=== PATIENT | female | born 1955 | race African-American/Black ===

== ENCOUNTER 2022-09-14 15:07 | Emergency (ER) | payer OTHER, SELFPAY ==
[2022-09-14] VITALS (9 sets, daily range): BP systolic 125–174; BP diastolic 62–90; PULSE 60–81; RESP 15–35; TEMP 36.2; O2SAT 94–97
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
[2022-09-14 15:44] LABS: Basophils Absolute Auto 0.1 K/mm3 (0.0-0.1); Basophils Percent Auto 1.1 % (0.2-1.2); Eosinophils Absolute Auto 0.1 K/mm3 (0-0.3); Eosinophils Percent Auto 2.5 % (0-4.4); Hematocrit 38.4 % (37.0-47.0); Hemoglobin 12.4 g/dL (12.0-15.0); Immature Granulocyte Absolute 0.03 K/mm3 (0.00-0.031); Immature Granulocyte Percent A 0.5 % (0-0.5); Lymphocytes Absolute Auto 2.44 K/mm3 (0.9-3.2); Lymphocytes Percent Auto 44.2 % (18.3-44.2); Mean Corpuscular HGB Conc 32.3 g/dl (32-36); Mean Corpuscular Hemoglobin 27.7 pg (26-34); Mean Corpuscular Volume 85.7 fl (80-100); Mean Platelet Volume 10.4 fl (7.4-10.4); Monocytes Absolute Auto 0.3 K/mm3 (0.1-0.6); Neutrophils Absolute Auto 2.5 K/mm3 (1.3-6.7); Neutrophils Percent Auto 45.7 % (45.5-73.1); Platelet Count Result 250 k/mm3 (150-375); Red Blood Count 4.48 M/mm3 (4.2-5.4); Red Cell Distribution Width 14.8 % (11.5-14.5); White Blood Count 5.5 K/mm3 (4.5-10.0)
[2022-09-14 15:57] LABS: Anion Gap 6 mmol/L (8-16); Blood Urea Nitrogen 23 mg/dL (7-17); Calcium 9.2 mg/dL (8.4-10.2); Carbon Dioxide 27 mmol/L (22-30); Chloride 104 mmol/L (98-107); Estimated CRCL calculation 50 ml/min; Estimated Glomerular Filt Rate > 60; Glucose 115 mg/dL (65-110); Potassium 4.3 mmol/L (3.4-5.0); Sodium 137 mmol/L (137-145)
== END 2022-09-14 17:59 | disposition home or self-care (01) ==
PROVIDERS: Emergency Provider Physician Assistant
DX: R07.89 Other chest pain (principal); S49.91XA Unspecified injury of right shoulder and upper arm, initial encounter; S69.92XA Unspecified injury of left wrist, hand and finger(s), initial encounter; M85.842 Other specified disorders of bone density and structure, left hand; M19.042 Primary osteoarthritis, left hand; M19.011 Primary osteoarthritis, right shoulder; V49.40XA Driver injured in collision with unspecified motor vehicles in traffic accident, initial encounter
CPT/HCPCS: 36415; 71260; 73030; 73140; 80048; 85025; 99284; Q9967

== ENCOUNTER 2024-12-05 00:17 | Inpatient (IN) | payer MEDICARE, SELFPAY ==
[2024-12-05] VITALS (21 sets, daily range): BP systolic 106–145; BP diastolic 53–70; PULSE 67–93; RESP 12–26; TEMP 36.2–38.1; O2SAT 92–98; BMI 26.2
--- NOTE | ~2024-12-05 | CT_ITS ---
History: Mental status changes PROCEDURE: CT head without contrast. COMPARISON: None TECHNIQUE: Axial imaging of the head performed from the skull base to the vertex without IV contrast. Sagittal a nd coronal reformations obtained. DLP: 1740 mGy-cm FINDINGS: The ventricles are enlarged. The dilatation of the ventricles is proportional to the degree of sulcal prominence, not uncommon in the senescent brain. Decreased attenuation is identified within the periventricular white matter, likely secondary to micr ovascular ischemic disease, in a patient of this age. There is no mass, mass effect or midline shift. There is no abnormal extra-axial fluid collection or intracranial hemorrhage. Visualized paranasal sinuses are clear. The mastoid air cells are well aerated. No acute displaced fractures within the overlying cranium. Impression: No acute intracranial hemorrhage or suspicious mass effect. Reviewed, dictated and finalized at location A. Impression: No acute intracranial hemorrhage or suspicious mass effect.
--- NOTE | ~2024-12-05 | US_ITS ---
US venous doppler [facility] - 12/06/2024 14:08 CDT History: 69 years old Female with bilateral lower extremity pain and swelling. Real-time sonographic images of the bilateral lower extremity venous system were obtained. Color Dop pler sonography and spectral waveform analysis were performed. No prior studies for comparison. The bilateral sapheno-femoral junctions are patent. The bilateral common femoral, superficial femor al, popliteal and posterior tibial veins are compressible and without evidence of echogenic thrombus . Impression: No evidence of deep venous thrombosis Reviewed, dictated and finalized at location A. Impression: No evidence of deep venous thrombosis
--- NOTE | ~2024-12-05 | XR_ITS ---
CHEST RADIOGRAPH CLINICAL HISTORY: fever, sob . COMPARISON: None TECHNIQUE: Single portable view of the chest. FINDINGS The cardiomediastinal silhouette is unremarkable. Platelike atelectasis within the right mid to lower lung field. The remainder of the lungs are clear. IMPRESSION: Platelike atelectasis within the right mid to lower lung field, without focal infiltrate or effusion. Reviewed, dictated and finalized at location A. IMPRESSION: Platelike atelectasis within the right mid to lower lung field, without focal i nfiltrate or effusion.
--- OUTSIDE RECORDS SUMMARY | 2024-12-05 00:19 | XMS_ITS | Clinical Summary ---
Author Organization [facility] Address [address] [place] [address] Care Team Providers Care Geographic Information Systems Engineer Name Role Phone Mike Yepez MD Unavailable Nikita Bailey MD Unavailable Elias Harris MD Unavailable Hema Whaley MD Unavailable [phone] Walter York MD Primary Care Provider Walter York MD Unavailable [phone] Anne Sharma MD Unavailable Justo Ferrer MD Unavailable Ansley Luciano OD Unavailable [phone] Source Comments [facility],non-owned Affiliates and Associated Physician Practices is amultiple site organization consisting of ambulatory clinics and hospital sitesin [place], [place], [place] and [place]. This disclosure is being madepursuant to the Care Everywhere program and may not contain all information available regarding this patient. Last updated 18.[facility] Allergies Active Allergy Reactions Criticality Noted Date Comments Bupropion Hcl Urticaria Medium 06/28/2008 Duloxetine Nausea and/or Vomiting,Dizziness Low Fatigue Venlafaxine Nausea and/or Vomiting Medium 06/15/2012 Medications * Be aware that medications may not be up to date on this document. Alwaysverify current medications with the patient. MULTIVITAMIN PO Take 1 Tab by mouth once daily. Active fluticasone propionate (FLONASE) 50 MCG/ACT nasal spray [place] 1 [place] into each nostril as needed. 1 Inhaler 11 04/26/20 13 Active Cholecalciferol (VITAMIN D) 50 MCG (1999 UT) capsule Take 1 capsule by mouth once daily 30 capsule 09/06/19 20 Active Blood Glucose Calibration (FREESTYLE CONTROL SOLUTION) LIQD 1 Each by In Vitro route as directed Prn 1 Each 08/22/19 22 Active blood glucose (FREESTYLE LITE STRIPS) test strip Testing once daily Type 2 DM E11.65 Insulin Depend. 100 strip 01/10/20 22 Active Magnesium 500 MG Take 500 mg by mouth every Friday, Friday & Friday08/29/19 23 Active Additional Information Patient taking differently:500 mg OralDAILY PRN, as needed for leg crampsTaking PRN, Indications: leg cramps, Reported on 11/11/2024 carvedilol (Coreg) 12.5 MG tablet Take 1 (one) tablet by mouth 2 times daily with morning and evening meal 180 tablet 4 11/10/19 24 Active Insulin Pen Needle (BD Pen Needle Nikole U/F) 32G X 4 MM MISCIndications: Diabetes mellitus type 2, insulin dependent (HCC) Use 1 Each once daily 100 Each 1 12/11/19 24 Active romosozumab-aqqg (Evenity) injection Inject 2.34 mL subcutaneously every 28 days Active gabapentin (Neurontin) 100 MG capsule TAKE 1 CAPSULE BY MOUTH TWICE DAILY 180 capsule 4 03/29/20 24 Active hydroCHLOROthiaz chai (Microzide) 12.5 MG capsuleIndicatio ns:Essential hypertension with goal blood pressure less than 130/80 Take 1 (one) capsule by mouth once daily 90 capsule 4 04/05/20 24 Active atorvastatin (Lipitor) 40 MG tabletIndication s:Atherosclerosi s of aorta,Essential hypertension with goal blood pressure less than 130/80 TAKE 1 TABLET BY MOUTH EVERY DAY 90 tablet 3 06/25/19 25 Active lisinopril (Prinivil; Zestril) 40 MG tabletIndication s:Essential hypertension with goal blood pressure less than 130/80 TAKE 1 TABLET BY MOUTH DAILY. HOLD IF BLOOD PRESSURE<110 90 tablet 3 08/21/19 25 Active amLODIPine (Norvasc) 5 MG tabletIndication s:Essential hypertension with goal blood pressure less than 130/80 TAKE 1 TABLET BY MOUTH TWICE DAILY 180 tablet 3 09/14/19 25 Active amitriptyline (Elavil) 25 MG tabletIndication s:Insomnia, unspecified type TAKE 1 TABLET BY MOUTH AT BEDTIME 90 tablet 3 10/02/19 25 Active albuterol HFA (Proventil; Ventolin; Proair) 108 (90 Base) MCG/ACT inhaler Inhale 2 (two) puffs by mouth every 4 hours as needed 7 g 5 10/05/19 25 Active umeclidinium-db anterol (Anoro Ellipta) 62.5-25 MCG/ACT inhalerIndicatio ns:Chronic Obstructive Pulmonary Disease Inhale 1 Puff by mouth once daily Reasons: Chronic Obstructive Lung Disease 3.214 Each 11 10/05/19 25 Active insulin glargine (Lantus/Semglee) 100 units/mL pen Inject 15 (fifteen) Units subcutaneously at bedtime for 90 days 10/06/19 25 025 Active Farxiga 10 MG tablet TAKE 1 TABLET BY MOUTH EVERY MORNING 90 tablet 10/19/19 25 Active dulaglutide (Trulicity) 3 MG/0.5ML injectionIndicat ions:Type 2 diabetes, controlled, with neuropathy (HCC) Inject 3 (three) mg subcutaneously every 7 days (once a week) 2 mL 2 11/12/19 25 Active dulaglutide (Trulicity) 1.5 MG/0.5ML injectionIndicat ions:Diabetes mellitus type 2, insulin dependent (HCC) ADMINISTER 1.5 MG UNDER THE SKIN EVERY 7 DAYS 2 mL 2 09/07/19 25 025 Discontin ued(Dose Adjustmen t) Active Problems Patient Care Coordination No te Formatting of this note is d ifferent from the original. [employer] H[employer]ER [address] [place] [address] (home) [phone] (work) [email or web address] Do they have MY CHART: Yes [facility] Extended Emergency Contact Information Name: Aruna Houser Address: DAUGHTER Relation: Daughter Name: Alrfedo Saini Relation: Nephew Name: Eleni Singh Relation: Sister MY CARE TEAM Primary Care Physician: Dr. Goins Automobile Wrecker: Elisa Montelongo RN MEDICATIONS Current Outpatient Prescriptions Medication gabapentin (NEURONTIN) 300 MG capsule traMADol (ULTRAM) 50 MG tablet insulin glargine (LANTUS) injection zolpidem (AMBIEN) 5 MG tablet aspirin 81 MG chew tablet blood glucose (ONETOUCH ULTRA TEST STRIPS) test strip glimepiride (AMARYL) 4 MG tablet pioglitazone (ACTOS) 45 MG tablet metFORMIN (GLUCOPHAGE) 1000 MG tablet vitamin D, ergocalciferol, (DRISDOL) 67796 UNIT capsule lisinopril-hydrochlorothiazide (PRINZIDE; ZESTORETIC) 20-12.5 MG tablet pravastatin (PRAVACHOL) 40 MG tablet metoprolol succinate XL 24hr (TOPROL XL) 25 MG tablet insulin syringe-needle (BD ULTRAFINE) 29G X 1/2 1 ML syringe fluticasone propionate (FLONASE) 50 MCG/ACT nasal spray MULTIVITAMIN PO PROVIGIL 200 MG TABS CURRENT HEALTH ISSUES Patient Active Problem List Diagnosis DM w/o Complication Type II Unspecified Essential Hypertension Sleep Apnea Screening for Eye Condition March 16, 2012 - No evidence of diabetic retinopathy - Yusef Enciso MD see scanned report DJD (degenerative joint disease), lumbar Hyperlipidemia Foot drop, right Depression Mitral valve prolapse Hepatitis B carrier Urinary retention Insulin-requiring or dependent type 2 diabetes mellitus Thoracic or lumbosacral neuritis or radiculitis, unspecified Fears and concerns about my health: No The changes I am ready to make: Take medications as prescribed Problem #1: Medication Compliance Prior state: Non-compliant Current State: Compliant Prior goal: Compliant Current goal: Compliant Problem #2: Pain Prior state: Constant pain in left low back, hip, and leg Current State: Pain is tolerable, able to sleep at night Prior goal: No pain Current goal: Managing pain Accomplishments: Receiving care from pain management PLAN The steps I will take to achieve my goal are: 1. Take Lantus every night 2. Complete follow up tests for back/leg pain 3. Start Cymbalta 30 mg daily 4. Call therapist and schedule appointment The things that will make it hard for me to reach my goal are: 1. Me The way I can overcome those things that get in the way: 1. Make it a priority How important my goal is for me: 7-8 (0=not important, 10=very important): My confidence level that I can reach my goal: 10 (10 represents feeling MOST confident): I should call my Automobile Wrecker with any questions, concerns, new problems, failures, or achievements. Also call if you need assistance navigating through the healthcare system or communicating between physicians. Automobile Wrecker name: Elisa Montelongo RNcognos phone: [phone] Automobile Wrecker email: Messages may be sent through MY CHART Problem Noted Date Diagnosed Date Right leg pain 09/08/2024 Pathological fracture of rig ht hip due to osteoporosis with routine healing 09/24/2023 Coronary artery disease 04/28/2023 Scant Diabetic Background Retinopathy 11/21/2021 Overview (11/21/2021): Yusef Enciso MD 11/05/21 Atherosclerosis of aorta 08/18/2019 Overview (08/18/2019): Ct chest 06/16/17 Palpitations 07/19/2019 Other chest pain 09/14/2018 COPD, severe 03/31/2017 Overview (08/18/2019): Elias Harris MD 07/05/19 Pulmonary nodules 03/31/2017 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 Wilson, DANNIE Type II diabetes mellitus with nephropathy 01/17 Overview (11/21/2021): Walter York MD 09/18/21 Type 2 diabetes, controlled, with neuropathy Overview (08/18/2019): Chi Goins MD 05/31/19 BMI 29.0-29.9,adult 04/26/2013 Foot drop, left 09/30/2012 Vitamin D deficiency 09/30/2012 Overview (03/02/2015): Thoracic or lumbosacral neur itis or radiculitis, unspecified 12/09/2011 Diabetes mellitus type 2, insulin dependent 05/03 Overview (11/21/2021): Anne Sharma MD 11/21/21 Foot drop, right 04/12/2011 Depression 04/12/2011 Mitral valve prolapse 04/12/2011 Hepatitis B carrier 04/12/2011 DJD (degenerative joint disease), lumbar 010 Screening for Eye Condition March 15, 2013 - No evidence of diabetic retinopathy - Yusef Enciso MD see scanned report 08/21/2009 Overview (03/25/2013): Dr Enciso, Jun 2009 Dr Enciso, Mar 2012 Dr Enciso, Mar 2013 Sleep apnea 08/15/2008 Overview (09/06/2019): Positional when in supine position. Does not use CPAP. Resolved Problems Problem Noted Date Diagnosed Date Resolved Date Fall, initial encounter 09/02/2023 0410/2023 Closed displaced intertrocha nteric fracture of right femur, initial encounter 09/02/20232023 Diabetes mellitus with insulin therapy 03/07/2016 11/21/2021 Overview (11/21/2021): DUPLICATE Right sided sciatica 04/30/2010 011 Ulnar neuropathy 12/25/2009 04/12/2011 Arteritis--cartoid 08/15/2008 1 Fibrocystic disease of breast 08/15/2008 04/12/2011 Pericarditis-1997 08/15/2008 04/12/2011 Gall bladder disease 08/15/2008 011 Lipoma 08/15/2008 04/12/2011 Carpal Tunnel Syndrome--left 08/15/2008 04/12/2011 Diverticulosis 08/15/2008 04/12/2011 Encounters Date Type Department Care Team Description 11/11/2024 10:40 AM CDT Office Visit [facility] - Endocrinology [address], [address] [place] [phone] Lupillo Garcia, RENAL DIALYSIS RN-HOSPITALITY MANAGER Type 2 diabetes, controlled, with neuropathy (HCC) (Primary Dx); Essential hypertension with goal blood pressure less than 130/80; Dyslipidemia; Osteoporosis with current pathological fracture, unspecified osteoporosis type, sequela 11/11/2024 Travel 10/29/2024 10:50 AM CDT Clinical Support [facility] Orthopedics [address] [facility] [address] [place] [address] Osteoarthritis of spine with radiculopathy, lumbar region 10/17/2024 Results Follow-Up [facility] Internal Medicine [address] [place] [address] [place] [address] Laura Mckeon APRN-JEVON 10/16/2024 Refill [facility] Endocrinology [address] [place] [address], [address] [place] [phone] Anne Sharma MD Refill Request 10/05/2024 1:20 PM CDT Office Visit [facility] Internal Medicine [address] [place] [address] [place] [address] Laura Mckeon, RENAL DIALYSIS RN-HOSPITALITY MANAGER Routine physical examination (Primary Dx); Essential hypertension with goal blood pressure less than 130/80; Atherosclerosis of aorta; Coronary artery disease involving [place] coronary artery of [place] heart without angina pectoris; COPD, severe (HCC); Tobacco use disorder, continuous; Diabetic retinopathy, background (HCC); Age-related osteoporosis without current pathological fracture; Hepatitis B carrier (HCC); Vitamin D deficiency; Mild episode of recurrent major depressive disorder; Iron deficiency anemia, unspecified iron deficiency anemia type; Neuropathy; Lumbar radiculopathy; 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); Diabetes mellitus type 2, insulin dependent (HCC); Thyroid disorder screen; Hammer toes of both feet; Medicare annual wellness visit, subsequent 10/05/2024 Travel 10/04/2024 11:40 AM CDT Office Visit [facility] - Pulmonology [address] [place] [address], [address] [place] [address] Elias Harris MD COPD, severe (HCC) (Primary Dx); Tobacco use disorder; Multiple lung nodules on CT 10/01/2024 Refill [facility] Internal Medicine [address] [facility] [place] [address] Walter York MD Refill Request 09/20/2024 11:00 AM CDT Clinical Support [facility] Orthopedics [id number] [place] [address], [address] [place] [phone] Osteoarthritis of spine with radiculopathy, lumbar region 09/12/2024 Refill [facility] Heart & Vascular Care [address] [place] [address] Hema Whaley MD Refill Request 09/08/2024 9:25 AM CDT Ancillary Procedure [facility] Orthopedic - Radiology [address] [place] [phone] Wale Flores, RENAL DIALYSIS RN-HOSPITALITY MANAGER Right leg pain 09/08/2024 9:20 AM CDT Office Visit [facility] [address] [place] [address] [address] [place] [address] Wale Flores, RENAL DIALYSIS RN-HOSPITALITY MANAGER Osteoarthritis of spine with radiculopathy, lumbar region (Primary Dx); Right leg pain 09/05/2024 Refill [facility] - Endocrinology [facility], [facility] [address] [place] [address] Anne Sharma MD Refill Request from Last 3 Months Immunizations Immunization Administration Dates Next Due COVID PFIZER 12+YR 30MCG/0.3mL 03/08/2024,2023,03/17/2023 COVID PFIZER BIVALENT 12Y+ 30mcg/0.3ML 03/18/2022 Comirnaty Covd-19 Mrna Vacci ne (Nucleoside Modified) 03/08/2024 Covid Pfizer primary Monoval ent 12+ yr 0.3ml 09/18/2021 Covid Pfizer primary monoval ent 12+ yr 0.3mL Purple cap 03/17/2023,05/01/2021,06/22/2020,2019 FLU VACCINE TRI IIV3 SPLIT P F IM (FLUVIRIN) 02/18/2011 HEP A VACCINE, ADULT 10/06/2001,07/01/2001 INFLUENZA VACCINE 03/08/2024, 3,03/02/2021,2019,03/03/2019,03/04/2018,02/25/2017,0 02/27/2016,02/28/2015,03/16/2014, 013,03/02/2012,04/21/2009,02/22/2009 INFLUENZA VACCINE, ADJUVANTE D, QUADR. (FLUAD QUADRIVALENT; 65Y+) (AIIV4) 03/18/2022 INFLUENZA VACCINE, HIGH-DOSE , TRIV. (FLUZONE HIGH-DOSE TRIVALENT; 65Y+) (HD-IIV3) 03/08/2024 PNEUMOCOCCAL PPSV23 01/20/2020,09/19/1998 Pneumococcal Pcv13 Conj 10/27/2014 RSV ABRYSVO PREG OR 60y+ 0.5mL 03/03/2023 RSV AREXVY 60YR+ 0.5ML 03/03/2023 TD VACCINE 09/19/2000 TDAP (7yrs+) 01/20/2020,12/25/2009 ZOSTER VACCINE, LIVE 01/25/2015 Zoster Hzv Vacc Recombinant Inj Im 09/08,07/13/2018,03/05/2018,2017 Family History Medical History Relation Name Comments CAD (Coronary Artery Disease) Brother Hypertension Brother Other - Hepatic/Liver Brother Hep B CAD (Coronary Artery Disease) Father CVA Maternal Grandfather CAD (Coronary Artery Disease) Maternal Grandmother Diabetes Mother Diabetes - Type 2 Mother Hypertension Mother Renal Disease Mother on HD, r/t [facility] Cancer - Breast Other half sister Colon Cancer after age 50 or unknown Paternal Grandmother Cancer - Colon Paternal Uncle Hypertension Sister Relation Name Status Comments Brother Alive Father (Age 59) [place] Maternal Grandfather Maternal Grandmother Mother (Age 64) dialysis, hypertension, diabetes Other half sister Alive Paternal Grandmother Paternal Uncle Sister Alive Social History Tobacco Use Types Packs/Day Years Used Date Smoking Tobacco: Every Day Cigarettes 0.5 44 Smokeless Tobacco: Never Comments:average 1 ppd since age 19, down to 1-2 cigarettes daily Alcohol Use Standard Drinks/Week Comments Not Currently 0 (1 standard drink = 0.6 oz pur e alcohol) 0-2 month OASIS D0700: Social Isolation Answer Da te Recorded Frequency of experiencing loneliness or isolatio n Never 09/25/2023 OASIS A1250: Transportation Answer Date Recorded Lack of Transportation (Medical) No 09/25/2023 Lack of Transportation (Non-Medical) No 09/25/2023 Patient Unable or Declines to Respond No 09/25/2023 OASIS B1300: Health Literacy Answer Chi e Recorded Frequency of needing help to read materials from doctor or pharmacy Never 09/25/2023 AUDIT-C Answer Date Recorded Q1: How often do you have a drink containing alc ohol? Monthly or less 09/02/2023 Q2: How many drinks containi ng alcohol do you have on a typical day when you are drinking? 1 or 2 09/02/2023 Q3: How often do you have si x or more drinks on one occasion? Never 09/02/2023 Overall Financial Resource Strain (CARDIA) Answe r Date Recorded How hard is it for you to pa y for the very basics like food, housing, medical care, and heating? Not hard at all 09/03/2023 PHQ-2 Answer Date Recorded Patient Health Questionnaire-2 Score 0 09/30/2024 [facility] Occupat ional [facility] - Occupational Stress Questionnaire Answer Date Recorded Do you feel stress - tense, restless, nervous, or anxious, or unable to sleep at night because your mind is troubled all the time - these days? Not at all 09/03/2023 Hunger Vital Sign Answer Date Recorded Within the past 12 months, y ou worried that your food would run out before you got the money to buy more. Never true 09/03/19 24 Within the past 12 months, t he food you bought just didn't last and you didn't have money to get more. Never true 09/03/2023 PRAPARE - Transportation Answer Date Re corded In the past 12 months, has l ack of transportation kept you from medical appointments or from getting medications? No 08/2023 In the past 12 months, has l ack of transportation kept you from meetings, work, or from getting things needed for daily living? No 09/03/2023 Housing Stability Vital Sign Answer Chi e Recorded In the last 12 months, was t here a time when you were not able to pay the mortgage or rent on time? No 09/03/2023 In the last 12 months, how many places have you lived? 1 09/03/2023 In the last 12 months, was t here a time when you did not have a steady place to sleep or slept in a group home (including now)? No 09/03/2023 Education Answer Date Recorded What is the highest level of school you have completed or the highest degree you have received? 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 Not on file Not on file Last Filed Vital Signs Vital Sign Reading Time Taken Comments Blood Pressure 130/60 11/11/2024 10:48 AM CDT Pulse 69 10/05/2024 1:26 PM CDT Temperature 36.1 C (96.9 F) 10/05/2024 1:26 PM CDT Respiratory Rate 16 09/25/2023 12:30 PM CDT Oxygen Saturation 97% 10/05/2024 1:26 PM CDT Inhaled Oxygen Concentration - - Weight 72.8 kg (160 lb 9.6 oz) 11/11/2024 10:48 AM CDT Height 165.1 cm (5' 5) 10/05/2024 1:26 PM CDT Body Mass Index 26.73 10/05/2024 1:26 PM CDT Plan of Treatment Upcoming Encounters Date Type Department Care Team (Late st Contact Info) Description 12/07/2024 11:00 AM CDT Clinical Support [facility] Orthopedics [address] [place] [address], [address] [phone] 02/03/2025 10:30 AM CDT Office Visit [facility] Heart & Vascular Care [address] [place] [address] [address] [place] [address] Hema Whaley MD [address] [place] [address] [address] [place] [address] 02/08/2025 12:40 PM CDT Office Visit [facility] Medical [facility] - Endocrinology [address], [address] [place] [phone] Lupillo Garcia RENAL DIALYSIS RN-HOSPITALITY MANAGER [address], [address] [place] [phone] 04/06/2025 9:20 AM IRIDOLOGIST Office Visit [facility] - Internal Medicine [address] [facility] [place] [address] Laura Mckeon, RENAL DIALYSIS RN-HOSPITALITY MANAGER [address] [facility] [facility] [place] [place] [phone] 04/06/2025 1:40 PM IRIDOLOGIST Office Visit [facility] - Pulmonology [address] [facility], [address] [place] [address] Elias Harris MD [address] [facility] [address] [place] [address] 04/22/2025 11:00 AM IRIDOLOGIST Office Visit [facility] - Ophthalmology [address] [facility] [facility], [place] [phone] David Palumbo, OD [facility] [place] [phone] Health Maintenance Due Date Last Done Comments COLOGUARD (AGES 45-75) - COLON CA SCREENING 1955 CT COLONOGRAPHY - COLON CA SCREENING 1955 FIT - COLON CA SCREENING 1955 FLEX SIG - COLON CA SCREENING 1955 HEPATITIS B VACCINE (1 of 3 - Risk 3-dose series) 2015 COVID-19 VACCINE ( season) 2024 03/08/2024, 03/08/2024, 09/24/2023, Additional history exists INFLUENZA VACCINE (#1) 2025 , 03/08/2024, 02/20/2023, Additional history exists LUNG CANCER SCREENING 02/08/2025 02/09/2024 , 02/05/2023, 01/30/2022, Additional history exists MAMMOGRAM 03/19/2025 03/19/2023, 03/02, 03/02/2021, Additional history exists DIABETES RETINOPATHY SCREENING 04/16/2025 04/16/2024, 04/16/2024, 04/15/2023, Additional history exists DIABETES-HGB A1C 05/13/2025 11/11/2024, 05/2025, 05/13/2024, Additional history exists DIABETES - URINE PROTEIN SCREENING 10/14/2025 10/14/2024, 09/24/2023, 01/21/2023, Additional history exists DIABETES-SERUM CREATININE 10/14/20252024, 09/24/2023, 09/04/2023, Additional history exists DIABETES-FOOT EXAM WITH MONOFILAMENT 11/11/2025 11/11/2024, 01/20/2020, 05/31/2019, Additional history exists COLONOSCOPY - COLON CA SCREENING 08/01/2027 07/31/2022, 07/31/2022, 07/31/2022, Additional history exists Colorectal Cancer Screening 08/01/2027 DTAP/TDAP/TD VACCINES (4 - Td or Tdap) 01/19/2030 01/20/2020, 12/25/2009, 09/19/2000 COLON MONITORING 07/31/2032 07/31/2022, 06/2022, 07/31/2022, Additional history exists HEPATITIS C SCREENING Completed 09/30/2012 ZOSTER VACCINE Completed 09/08/2018, 07/03, 03/05/2018, Additional history exists PNEUMOCOCCAL VACCINE 50+ Completed 020, 10/27/2014, 09/19/1998 Respiratory Syncytial Virus (RSV) Vaccine Pt: or over 60 yrs Completed 03/03/2023, 03/03/2023 BONE DENSITY TESTING Completed 10/07/2023, 11/13/2016, 10/22/2007 DEPRESSION SCREENING Completed 10/04/2024, 09/09/2023, 09/02/2023, Additional history exists MEDICARE AWV CALENDAR YEAR Completed 10/05/2024, 09/24/2023, 02/27/2023, Additional history exists HIB VACCINE Aged Out No longer eligi ble based on patient's age to complete this topic HPV VACCINE Aged Out No longer eligi ble based on patient's age to complete this topic MENINGOCOCCAL (Group B) VACCINE SHARED DECISION-MAKING Aged Out No longer eligible based on patient's age to complete this topic MENINGOCOCCAL GROUPS A/C/Y/W VACCINE Aged Out No longer eligible based on patient's age to complete this topic Goals Goal Patient Goal Type Associated Problems Recent Progress Patient-Stated? Author Blood Pressure < 140/90 Blood Pressure 130/60(2024 10:48 AM CDT) No Rachna Amador RN Right level of care at the right time. General Yes Vikki Chacon RN Note: Boots will call the doctor if she has an increased temperature (greater than 101), unrelieved pain, symptoms that are not relieved or worsening, and side effects of medications. Progress toward goal attainment: 0% : Ongoing / No progress Barriers to goal attainment: No barriers identified at time of encounter. Increase vegetable intake to 2 servings daily Lifestyle BMI 29.0-29.9,adult Not on track( 015 9:29 AM CDT) No Rachna Amador RN Quit smoking / using tobacco Lifestyle Not on track( 016 10:16 AM CDT) No Rachna Amador RN [facility] [facility] Lifestyle: Have labs drawn Lifestyle On track( 015 9:29 AM CDT) Chrissy Vázquez HEMOGLOBIN A1C < 8 Result Component 6.6( 4 3:41 AM CDT) No Rachna Amador RN Medical Devices Implanted Type Area Seed Laboratory Technician Device Identifier Shelf Expiration Date Model / Serial / Lot Cochlear Baha [id number] Abdutment 14mm Implanted:Qty: 1 on 10/22/2018 by Nikita Bailey MD at [facility] Right: Ear 11/08/2020 [id number] / / [id number] Lens Iol +28 Rosalie Autonome Formerly [facility] - [id number] Implanted:Qty: 1 on 08/06/2022 by Albert Mckenna MD at [facility] Right: Eye [employer] 10/06/2024 [id number] / [id number] / 0000 Acry Sopf Iq Toric Implanted:Qty: 1 on 08/27/2022 by Albert Mckenna MD at [facility] Left: Eye [employer] 08/31/2023 [id number] / [id number] Gamma Trochanteric Nail 170mm 11 X 170mm X 125 Degree Implanted:Qty: 1 on 09/03/2023 by Mehdi Forte MD at [facility] Right: Femur [employer] 06/01/2033 [id number] / / [id number] Screw 10.5mm 90mm Lag Gma Strl Bone Lf Implanted:Qty: 1 on 09/03/2023 by Mehdi Forte MD at [facility] Right: Femur [employer] 05/01/2033 [id number] / / [id number] Screw 5mm 35mm Lck T2 Alpha Strl Bone Implanted:Qty: 1 on 09/03/2023 by Mehdi Forte MD at [facility] Right: Femur [employer] 07/02/2033 [id number] / / [id number] Procedures Procedure Name Priority Date/Time Associated Diagnosis Comments HEMOGLOBIN A1C - POINT OF CARE (AMB) Routine 11/11/2024 10:55 AM CDT Type 2 diabetes, controlled, with neuropathy (HCC) GLUCOSE - POINT OF CARE (AMB) STL Routine 11/11/2024 10:54 AM CDT Type 2 diabetes, controlled, with neuropathy (HCC) VITAMIN D 25-HYDROXY Routine 10/14/2024 11:14 AM CDT Vitamin D deficiency IRON + TIBC PANEL Routine 10/14/2024 11: 13 AM CDT Iron deficiency anemia, unspecified iron deficiency anemia type TSH HI LOW REFLEX FREE T4 Routine 10/14/2024 11:13 AM CDT Routine physical examination Thyroid disorder screen LIPID PROFILE Routine 10/14/2024 11:13 AM CDT Routine physical examination Atherosclerosis of aorta Coronary artery disease involving [place] coronary artery of [place] heart without angina pectoris CBC W AUTO DIFFERENTIAL Routine 10/14/2024 11:13 AM CDT Routine physical examination COMPREHENSIVE METABOLIC PANEL Routine 10/14/2024 11:13 AM CDT Routine physical examination Essential hypertension with goal blood pressure less than 130/80 Hepatitis B carrier (HCC) MICROALB/CREAT RATIO URINE RANDOM PANEL Routine 10/14/2024 11:13 AM CDT Routine physical examination Lumbar radiculopathy 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) Diabetes mellitus type 2, insulin dependent (HCC) XR HIP RIGHT 2VW OR MORE Routine 09/08/2024 9:19 AM CDT Right leg pain CT LUNG SCREEN LOW DOSE Routine 02/09/2024 11:10 AM CDT Tobacco use disorder Multiple lung nodules on CT DEXA BONE DENSITY AXIAL SKELETON Routine 10/07/2023 1:01 PM CDT Pathological fracture of right hip due to other osteoporosis with routine healing, subsequent encounter MAMMO BILAT SCREENING W VICK Routine 03/19/2023 10:23 AM CDT Encounter for screening mammogram for malignant neoplasm of breast ENDOSCOPY, COLON, SCREENING Routine 07/31/2022 8:47 AM IRIDOLOGIST Screen for colon cancer EYE EXAM 03/18/2022 HEPATITIS C ANTIBODY Routine 09/30/2012 9:13 AM CDT Need for hepatitis C screening test from Last 3 Months or Most Recently Relevant to Health Maintenance Results * HEMOGLOBIN A1C - POINT OF CARE (AMB) (11/11/2024 10:55 AM CDT) Hemoglobin A1c POCT 6.5 % [facility] Expiration Date [id number] [facility] Lot # [id number] [facility] QC Verified Yes Yes [facility] Blood BLOOD SPECIMEN / Unknown 11/11/2024 10:55 AM CDT [email or web address] Pittsjefferson RENAL DIALYSIS RN-HOSPITALITY MANAGER LAB - POINT OF C ARE ORDERABLES Final Result [facility] [address] [place] [address], [facility] [phone] * (ABNORMAL) GLUCOSE - POINT OF CARE (AMB) ST (11/11/2024 10:54 AM CDT) Glucose 102(A) 60 - 100 mg/dL [facility] Lot # [id number] [facility] Expiration Date [id number] [facility] QC Verified Yes Yes [facility] Blood BLOOD SPECIMEN / Unknown 11/11/2024 10:54 AM CDT Gabinoaz Shameka Radha RENAL DIALYSIS RN-HOSPITALITY MANAGER LAB - POINT OF C ARE ORDERABLES Final Result [facility] [address] [place] [address], [facility] [phone] * VITAMIN D 25-HYDROXY (10/14/2024 11:14 AM CDT) Vitamin D, 25 Hydroxy 42.3 30.0 - 100.0 ng/mL [facility] INSURANCE BILL Comment: Vitamin D deficiency has been defined by the [place] of [employer] and an Endocrine Society practice guideline as a level of serum 25-OH vitamin D less than 20 ng/mL (1,2). The Endocrine Society went on to further define vitamin D insufficiency as a level between 21 and 29 ng/mL (2). 1. IOM ([place] of Medicine). 2010. Dietary reference intakes for calcium and D. [place]: The National Academies Press. 2. Armando MF, Julius NOWAK, Zeb TORRES, et al. Evaluation, treatment, and prevention of vitamin D deficiency: an Endocrine Society clinical practice guideline. JCEM. 2010; 96(7):1911-30. Blood BLOOD SPECIMEN / Unknown 10/14/2024 11:14 AM CDT 10/14/2024 Narrative [facility] INSURANCE BILL - 10/15/2024 9:10 AM CDT Performed at: [address] [place] [address] [id number] Application Penetration Tester: Martin Sotelo PhD, Phone: [phone] Laura Mckeon APRUNIVERSITY OF [facility] LAB - CHEMISTRY ORDERAB LES Final Result Performing Organization Address [facility] Co de Phone Number [facility] INSURANCE BILL [address] [place] [address] * TSH HI LOW REFLEX FREE T4 (10/14/2024 11:13 AM CDT) [facility] TSH 0.676 0.450 - 4.500 uIU/mL [facility] INSURANCE BILL Blood BLOOD SPECIMEN / Unknown 10/14/2024 11:13 AM CDT 10/14/2024 Narrative [facility] INSURANCE BILL - 10/15/2024 10:10 AM CDT Performed at: [address] [place] [address] [id number] Application Penetration Tester: Martin Sotelo PhD, Phone: [phone] Laura Mckeon APRNSAINT ELIZABETH'[facility] LAB - CHEMISTRY ORDERAB LES Final Result Performing Organization Address [facility] Co de Phone Number [facility] INSURANCE BILL [address] [place] [address] * (ABNORMAL) MICROALB/CREAT RATIO URINE RANDOM PANEL (10/14/2024 11:13 AM CDT) Creatinine Urine 48.8 Not Estab. mg/dL [facility] INSURANCE BILL Microalbumin Urine 41.2 Not Estab. ug/mL [facility] INSURANCE BILL Microalbumin/Crea tinine Ratio 84(H) 0 - 29 mg/g creat [facility] INSURANCE BILL Comment: Normal: 0 - 29 Moderately increased: 30 - 300 Severely increased: >300 Urine URINE SPECIMEN OBTAINED BY CLEAN CATCH PROCEDURE / Unknown 10/14/2024 11:13 AM CDT 10/14/2024 Narrative [facility] INSURANCE BILL - 10/15/2024 1:10 PM CDT Performed at: 01 - [address] [id number] Application Penetration Tester: Martin Sotelo PhD, Phone: [phone] us Laura Mckeon RENAL DIALYSIS RN-HOSPITALITY MANAGER LAB - URINE CHEMISTRY O RDERABLES Final Result [facility] INSURANCE BILL [address] [place] [address] * CBC WITH DIFFERENTIAL (10/14/2024 11:13 AM CDT) WBC 4.9 3.4 - 10.8 x10E3/uL [facility] INSURANCE BILL RBC 4.48 3.77 - 5.28 x10E6/uL [facility] INSURANCE BILL Hemoglobin 12.4 11.1 - 15.9 g/dL [facility] INSURANCE BILL Hematocrit 38.6 34.0 - 46.6 % [facility] INSURANCE BILL MCV 86 79 - 97 fL [facility] INSURANCE BILL MCH 27.7 26.6 - 33.0 pg [facility] INSURANCE BILL MCHC 32.1 31.5 - 35.7 g/dL [facility] INSURANCE BILL RDW 13.5 11.7 - 15.4 % [facility] INSURANCE BILL Platelet Count 230 150 - 450 x10E3/uL [facility] INSURANCE BILL Granulocytes % 52 Not Estab. % [facility] INSURANCE BILL Lymphocytes % 36 Not Estab. % [facility] INSURANCE BILL Monocytes % 8 Not Estab. % [facility] INSURANCE BILL Eosinophils % 3 Not Estab. % [facility] INSURANCE BILL Basophils % 1 Not Estab. % [facility] INSURANCE BILL Granulocytes Absolute 2.6 1.4 - 7.0 x10E3/uL [facility] INSURANCE BILL Lymphocytes Absolute 1.7 0.7 - 3.1 x10E3/uL [facility] INSURANCE BILL Monocytes Absolute 0.4 0.1 - 0.9 x10E3/uL [facility] INSURANCE BILL Eosinophils Absolute 0.1 0.0 - 0.4 x10E3/uL [facility] INSURANCE BILL Basophils Absolute 0.0 0.0 - 0.2 x10E3/uL [facility] INSURANCE BILL Immature Granulocytes 0 Not Estab. % [facility] INSURANCE BILL Immature Granulocytes Absolute 0.0 0.0 - 0.1 x10E3/uL [facility] INSURANCE BILL Blood BLOOD SPECIMEN / Unknown 10/14/2024 11:13 AM CDT 10/14/2024 Narrative [facility] INSURANCE BILL - 10/15/2024 7:09 AM CDT Performed at: [address] [place] [address] [id number] Application Penetration Tester: Martin Sotelo PhD, Phone: [phone] us Laura Mckeon RENAL DIALYSIS RN-HOSPITALITY MANAGER LAB - HEMATOLOGY ORDERA BLES Final Result [facility] INSURANCE BILL [address] [place] [address] * (ABNORMAL) COMPREHENSIVE METABOLIC PANEL (10/14/2024 11:13 AM CDT) Glucose 125(H) 70 - 99 mg/dL [facility] INSURANCE BILL BUN 14 8 - 27 mg/dL [facility] INSURANCE BILL Creatinine 0.83 0.57 - 1.00 mg/dL [facility] INSURANCE BILL eGFR by CKD-EPI 76 >59 mL/min/1.7 3 [facility] INSURANCE BILL BUN/Creatinine Ratio 17 12 - 28 [facility] INSURANCE BILL Sodium 140 134 - 144 mmol/L [facility] INSURANCE BILL Potassium 4.9 3.5 - 5.2 mmol/L [facility] INSURANCE BILL Chloride 102 96 - 106 mmol/L [facility] INSURANCE BILL CO2 25 20 - 29 mmol/L [facility] INSURANCE BILL Calcium 9.9 8.7 - 10.3 mg/dL [facility] INSURANCE BILL Protein Total 7.2 6.0 - 8.5 g/dL [facility] INSURANCE BILL Albumin 4.3 3.9 - 4.9 g/dL [facility] INSURANCE BILL Globulin Total 2.9 1.5 - 4.5 g/dL [facility] INSURANCE BILL Bilirubin Total 0.4 0.0 - 1.2 mg/dL [facility] INSURANCE BILL Alkaline Phosphatase 177(H) 44 - 121 IU/L [facility] INSURANCE BILL AST 18 0 - 40 IU/L [facility] INSURANCE BILL ALT 13 0 - 32 IU/L [facility] INSURANCE BILL Blood BLOOD SPECIMEN / Unknown 10/14/2024 11:13 AM CDT 10/14/2024 Narrative [facility] INSURANCE BILL - 10/15/2024 9:10 AM CDT Performed at: [address] [id number] Application Penetration Tester: Martin Sotelo PhD, Phone: [phone] us Laura Mckeon APRN-HOSPITALITY MANAGER LAB - CHEMISTRY ORDERAB LES Final Result Performing Organization Address [facility] de Phone Number [facility] INSURANCE BILL [address] [place] [address] * IRON + TIBC PANEL (10/14/2024 11:13 AM CDT) [facility] TIBC 273 250 - 450 ug/dL [facility] INSURANCE BILL UIBC 210 118 - 369 ug/dL [facility] INSURANCE BILL Iron 63 27 - 139 ug/dL [facility] INSURANCE BILL Iron Saturation 23 15 - 55 % [facility] INSURANCE BILL Blood BLOOD SPECIMEN / Unknown 10/14/2024 11:13 AM CDT 10/14/2024 Narrative [facility] INSURANCE BILL - 10/15/2024 11:11 AM CDT Performed at: [address] [id number] Application Penetration Tester: Martin Sotelo PhD, Phone: [phone] us Laura Mckeon RENAL DIALYSIS RN-HOSPITALITY MANAGER LAB - CHEMISTRY ORDERAB LES Final Result Performing Organization Address [facility] de Phone Number [facility] INSURANCE BILL [address] [place] [address] * LIPID PROFILE (10/14/2024 11:13 AM CDT) Cholesterol 131 100 - 199 mg/dL [facility] INSURANCE BILL Triglycerides 71 0 - 149 mg/dL [facility] INSURANCE BILL HDL Cholesterol 55 >39 mg/dL [facility] INSURANCE BILL VLDL Calculated 14 5 - 40 mg/dL [facility] INSURANCE BILL LDL Calculated 62 0 - 99 mg/dL [facility] INSURANCE BILL Blood BLOOD SPECIMEN / Unknown 10/14/2024 11:13 AM CDT 10/14/2024 Narrative [facility] INSURANCE BILL - 10/15/2024 9:10 AM CDT Performed at: 01 - [address] [id number] Application Penetration Tester: Martin Sotelo PhD, Phone: [phone] us Laura Mckeon RENAL DIALYSIS RN-HOSPITALITY MANAGER LAB - CHEMISTRY ORDERAB LES Final Result [facility] INSURANCE BILL [address] [place] [address] * XR Hip Right 2Vw or More (09/08/2024 9:19 AM CDT) Anatomical Region Laterality Modality Pelvis, Lower Extremity Computed Radiography Narrative 09/08/2024 9:19 AM CDT Please see progress note in Epic for results. us Wale Flores RENAL DIALYSIS RN-HOSPITALITY MANAGER DIAGNOSTIC IMAGING ORDB[place] DIETZ Edited Result - Final * CT Lung Screen Low Dose (02/09/2024 11:10 AM CDT) Anatomical Region Laterality Modality Chest Computed Tomogra phy 02/09/2024 11:2 8 AM CDT Impressions 02/09/2024 11:44 AM CDT IMPRESSION: 1. No suspicious interval changes in the size or morphology of pulmonary nodules at discussed above. There are no new pulmonary nodules, lymphadenopathy or metastatic lesions. 2. Early centrilobular emphysema in the lung apices. 3. Heavy burden of atherosclerotic calcifications of coronary arteries and thoracic aorta as well as the imaged portion of the upper abdominal aorta. RECOMMENDATION: Low-dose CT lung screening in 12 months. LUNG RADS CATEGORY 2 : BENIGN CATEGORY 2: BENIGN APPEARANCE OR BEHAVIOR. Solid nodules less than 6 mm, new nodules less than 4 mm, partly solid nodules less than 6 mm and non-solid nodules less than 20 mm. Continued screening with LD CT in 12 months. ACR Lung-RADS Category/Recommendations: 0: Need prior comparisons or additional images 1: Negative: 12 month follow up LDCT (Low Dose CT) 2: Benign Appearin month follow up LDCT 3: Probably Benign: 6 month follow up LDCT 4A: Suspicious: 3 month follow up LDCT (or immediate PET if >7mm solid component) 4B: Suspicious: Immediate Chest CT or PET if >7mm solid component 4X: Cat 3 or 4A nodules with additional suspicious findings Modifier-S: Significant NON-lung cancer findings Modifier-C: Prior treated Lung Cancer. For details of the ACR Lung-RADS program, categories and recommendations: 1) https://www.acr.org/Quality-Safety/Resources/LungRADS 2) Internet search: Lung-RADS Lung Cancer Screening 3) Contact [facility] thoracic nurse coordinator ([phone]) > Interpreting Provider: Gilmar Welsh MD on 02/09/2024 11:44 AM Narrative 02/09/2024 11:44 AM CDT PROCEDURE: CT LUNG SCREEN LOW DOSE DATE/TIME OF EXAM: 02/09/2024 11:10 AM CLINICAL INFORMATION: None relevant/not provided if blank. Indication: F17.200: Nicotine dependence, unspecified, uncomplicated R91.8: Other nonspecific abnormal finding of lung field CT LUNG SCREENING. HISTORY: This is a lung cancer screening on a 69-year-old female with 22 pack year history of smoking half a pack to 1 pack of cigarettes for 44 years COMPARISON: CT lung cancer screening, 02/05/2023 and 08/31/2018 TECHNIQUE: Spiral axial scanning of the chest was performed without intravenous contrast administration utilizing 2.5 mm slice thickness images. CT dose reduction technique was used, including Automated Exposure Control. The radiation exposure as measured by the dose length product (DLP) is 76.58 mGy-cm. FINDINGS: The noncalcified nodule with groundglass attenuation in the superior segment of right lower lobe measuring 4 mm (series 4, image 44) is a stable from the 2022 examination, but is a slightly larger than 2019 when it measured 2.5 mm. The subpleural tiny nodule of the superior segment of right upper lobe adjacent to upper aspect of major fissure with groundglass attenuation measuring 3 mm and has not changed (series 4, image 32). Both of these nodules are best seen on the coronal image 83 in lung window setting. The juxtapleural nodular patchy opacity in the medial basal segment of right lower lobe (series 4, image 94) measuring 11 mm in length) is partially obscured by adjacent diaphragm, but is similar to the previous examination in 2019 (series 3, image 169 of the study in 2019). Given the interval, it is benign. The lung window images do not demonstrate new pulmonary nodules, masses, fibrotic changes, endobronchial lesions, bronchiectasis, bronchial wall thickening, endotracheal lesions or pneumothorax. Minimal centrilobular emphysematous changes of the lung apices are suspected. The lungs are otherwise clear. Heavy burden coronary artery calcifications involving the left main, proximal and distal left anterior descending, diagonal and septal branches, circumflex and right coronary artery is noted. The is heavy burden of atherosclerotic calcifications of the entire length of the thoracic aorta. The aorta is normal in size and course and there is no evidence of intramural hematoma in aorta. The heart is normal in size. There is no pericardial effusion or pleural effusion. The esophageal wall thickness is normal. There is evidence of gastroesophageal reflux of a small volume of air to distal esophagus. A small sliding hiatal hernia is suspected. There is no lymphadenopathy in the chest or the imaged upper abdomen. The imaged portion of the thyroid gland is normal for a low-dose nonenhanced study. The chest wall is unremarkable. The imaged portion of the upper abdomen is within normal limits for a low-dose nonenhanced study. The bone window images demonstrate partially imaged postoperative changes of anterior cervical discectomy and fusion of the cervical spine, exaggerated kyphosis of the thoracic spine and advanced multilevel degenerative disc disease of mid and lower thoracic spine as well as the lower cervical spine. Procedure Note Gilmar Welsh MD - 02/09/2024 PROCEDURE: CT LUNG SCREEN LOW DOSE DATE/TIME OF EXAM: 02/09/2024 11:10 AM CLINICAL INFORMATION: None relevant/not provided if blank. Indication: F17.200: Nicotine dependence, unspecified, uncomplicated R91.8: Other nonspecific abnormal finding of lung field CT LUNG SCREENING. HISTORY: This is a lung cancer screening on a 69-year-old female with 22 pack year history of smoking half a pack to 1 pack of cigarettes for 44 years COMPARISON: CT lung cancer screening, 02/05/2023 and 08/31/2018 TECHNIQUE: Spiral axial scanning of the chest was performed without intravenous contrast administration utilizing 2.5 mm slice thickness images. CT dose reduction technique was used, including AutomatedExposure Control. The radiation exposure as measured by the dose length product (DLP) is 76.58 mGy-cm. FINDINGS: The noncalcified nodule with groundglass attenuation in the superior segment of right lower lobe measuring 4 mm (series 4, image 44) is astable from the 2022 examination, but is a slightly larger than 2019 when it measured 2.5 mm. The subpleural tiny nodule of the superior segment of right upper lobe adjacent to upper aspect of major fissure withgroundglass attenuation measuring 3 mm and has not changed (series 4, image 32).Both of these nodules are best seen on the coronal image 83 in lung window setting. The juxtapleural nodular patchy opacity in the medial basal segment of right lower lobe (series 4, image 94) measuring 11 mm in length) is partially obscured by adjacent diaphragm, but is similar to the previous examination in 2019 (series 3, image 169 of the study in 2019). Giventhe interval, it is benign. The lung window images do not demonstrate new pulmonary nodules, masses, fibrotic changes, endobronchial lesions, bronchiectasis, bronchial wall thickening, endotracheal lesions or pneumothorax. Minimal centrilobular emphysematous changes of the lung apices are suspected. The lungs are otherwise clear. Heavy burden coronary artery calcifications involving the left main, proximal and distal left anterior descending, diagonal and septalbranches, circumflex and right coronary artery is noted. The is heavy burden of atherosclerotic calcifications of the entire length of the thoracicaorta. The aorta is normal in size and course and there is no evidence of intramural hematoma in aorta. The heart is normal in size. There is no pericardial effusion or pleural effusion. The esophageal wall thickness is normal. There is evidence of gastroesophageal reflux of a small volume of air to distal esophagus. A small sliding hiatal hernia is suspected. There is no lymphadenopathy in the chest or the imaged upper abdomen.The imaged portion of the thyroid gland is normal for a low-dose nonenhanced study. The chest wall is unremarkable. The imaged portion of the upper abdomen is within normal limits for a low-dose nonenhanced study. The bone window images demonstrate partially imaged postoperativechanges of anterior cervical discectomy and fusion of the cervical spine, exaggerated kyphosis of the thoracic spine and advanced multilevel degenerative disc disease of mid and lower thoracic spine as well as the lower cervical spine. IMPRESSION: 1. No suspicious interval changes in the size or morphology of pulmonary nodules at discussed above. There are no new pulmonary nodules, lymphadenopathy or metastatic lesions. 2. Early centrilobular emphysema in the lung apices. 3. Heavy burden of atherosclerotic calcifications of coronary arteriesand thoracic aorta as well as the imaged portion of the upper abdominalaorta. RECOMMENDATION: Low-dose CT lung screening in 12 months. LUNG RADS CATEGORY 2 : BENIGN CATEGORY 2: BENIGN APPEARANCE OR BEHAVIOR. Solid nodules less than 6 mm, new nodules less than 4 mm, partly solid nodules less than 6 mm and non-solid nodules less than 20 mm. Continued screening with LD CT in 12 months. ACR Lung-RADS Category/Recommendations: 0: Need prior comparisons or additional images 1: Negative: 12 month follow up LDCT (Low Dose CT) 2: Benign Appearin month follow up LDCT 3: Probably Benign: 6 month follow up LDCT 4A: Suspicious: 3 month follow up LDCT (or immediate PET if >7mm solid component) 4B: Suspicious: Immediate Chest CT or PET if >7mm solid component 4X: Cat 3 or 4A nodules with additional suspicious findings Modifier-S: Significant NON-lung cancer findings Modifier-C: Prior treated Lung Cancer. For details of the ACR Lung-RADS program, categories andrecommendations: 1) https://www.acr.org/Quality-Safety/Resources/LungRADS 2) Internet search: Lung-RADS Lung Cancer Screening 3) Contact [facility] thoracic nurse coordinator ([phone]) > Interpreting Provider: Gilmar Welsh MD on 02/09/2024 11:44 AM Phyllis Murphy RENAL DIALYSIS RN-HOSPITALITY MANAGER CT ORDERABLES Final R esult * DEXA BONE DENSITY AXIAL SKELETON (10/07/2023 1:01 PM CDT) Anatomical Region Laterality Modality Nuclear Medicine 10/07/2023 1:13 PM CDT Impressions 10/07/2023 1:13 PM CDT IMPRESSION: WHO category: Osteopenia WORLD HEALTH ORGANIZATION DEFINITIONS NORMAL= T-Score at or above -1.0 SD OSTEOPENIA = T-Score between -1 and -2.5 SD OSTEOPOROSIS = T-Score at or below -2.5 SD > Interpreting Provider: Alex Boo DO on 10/07/2023 1:13 PM Narrative 10/07/2023 1:13 PM CDT PROCEDURE: DEXA BONE DENSITY AXIAL SKELETON DATE/TIME OF EXAM: 10/07/2023 1:01 PM CLINICAL INFORMATION: None relevant/not provided if blank. Indication: M80.851D: Other osteoporosis with current pathological fracture, right femur, subsequent encounter for fracture with routine healing Additional History: Right hip hardware COMPARISON: None. INDICATION: 68 years-old for osteoporosis screening. FINDINGS: The mean bone mineral content of the lumbar spine is 1.399 g/cm2 and T-score is 1.8. The mean bone mineral content of the left femoral neck is 0.859 g/cm2 and T-score is -1.3. The mean bone mineral content of the left total hip is 0.738 g/cm2 and T-score is -2.1. FRAX 10 year fracture risk Major osteoporotic fracture: 6.9% Hip fracture: 0.8% Procedure Note Alex Boo DO - 10/07/2023 PROCEDURE: DEXA BONE DENSITY AXIAL SKELETON DATE/TIME OF EXAM: 10/07/2023 1:01 PM CLINICAL INFORMATION: None relevant/not provided if blank. Indication: M80.851D: Other osteoporosis with current pathological fracture, right femur, subsequent encounter for fracture with routine healing Additional History: Right hip hardware COMPARISON: None. INDICATION: 68 years-old for osteoporosis screening. FINDINGS: The mean bone mineral content of the lumbar spine is 1.399 g/cm2 and T-score is 1.8. The mean bone mineral content of the left femoral neck is 0.859 g/cm2and T-score is -1.3. The mean bone mineral content of the left total hip is 0.738 g/cm2 and T-score is -2.1. FRAX 10 year fracture risk Major osteoporotic fracture: 6.9% Hip fracture: 0.8% IMPRESSION: WHO category: Osteopenia WORLD HEALTH ORGANIZATION DEFINITIONS NORMAL= T-Score at or above -1.0 SD OSTEOPENIA = T-Score between -1 and -2.5 SD OSTEOPOROSIS = T-Score at or below -2.5 SD > Interpreting Provider: Alex Boo DO on 10/07/2023 1:13 PM Wale Flores RENAL DIALYSIS RN-HOSPITALITY MANAGER DEXA ORDERABLES Final R esult * MAMMO BILAT SCREENING W VICK (03/19/2023 10:23 AM CDT) Anatomical Region Laterality Modality Breast Bilateral Mammography 03/19/2023 11:3 1 AM CDT Impressions 03/19/2023 12:43 PM CDT : There is no mammographic evidence of malignancy. OVERALL FINAL ASSESSMENT: BI-RADS Category 1: Negative. Annual screening mammography is recommended. > Interpreting Provider: Darwin Valentin MD on 03/19/2023 12:43 PM Narrative 03/19/2023 12:43 PM CDT EXAMINATION: BILATERAL DIGITAL SCREENING MAMMOGRAM AND BILATERAL BREAST TOMOSYNTHESIS HISTORY: Screening. COMPARISON: Serial examinations dating back to (09/13/2017.. TECHNIQUE: BILATERAL digital breast tomosynthesis (DBT) and synthetic 2D digital mammogram images were obtained (bilateral craniocaudal and mediolateral oblique projections) including computer aided detection (CAD.) BREAST PARENCHYMAL COMPOSITION:Category D: The breasts are extremely dense which lowers the sensitivity of mammography. MAMMOGRAM FINDINGS: There are no new suspicious masses, calcifications, or areas of architectural distortion in either breast, and there has been no significant interval change. Walter York MD MAMMO ORDERABLES Final Result * ENDOSCOPY, COLON, SCREENING (07/31/2022 8:47 AM IRIDOLOGIST) Report Endoscopy POC _ Patient Name: Prosper Houesr Procedure Date: 07/31/2022 8:47 AM Date of : 1955 Admit Type: Outpatient Age: 67 Gender: Female Ethnicity: Not or Race: Black or Attending MD: Mike Yepez MD _ Procedure: Colonoscopy Indications: Screening for colorectal malignant neoplasm Providers: Mike Yepez MD (Doctor), Rafa Haney RN, Pattie Vidal RN, Sofie Stacy, Stain Maker Referring MD: Walter York MD (Referring MD) Medicines: Monitored Anesthesia Care Complications: No immediate complications. _ Estimated Blood Loss: Estimated blood loss: none. Procedure: Pre-Anesthesia Assessment: - Prior to the procedure, a History and Physical was performed, and patient medications and allergies were reviewed. The patient's tolerance of previous anesthesia was also reviewed. The risks and benefits of the procedure and the sedation options and risks were discussed with the patient. All questions were answered, and informed consent was obtained. Prior Anticoagulants: The patient has taken no previous anticoagulant or antiplatelet agents. ASA Grade Assessment: II - A patient with mild systemic disease. After reviewing the risks and benefits, the patient was deemed in satisfactory condition to undergo the procedure. After I obtained informed consent, the scope was passed under direct vision. Throughout the procedure, the patient's blood pressure, pulse, and oxygen saturations were monitored continuously. The Colonoscope was introduced through the anus and advanced to the cecum, identified by appendiceal orifice and ileocecal valve. The colonoscopy was performed without difficulty. The patient tolerated the procedure well. The quality of the bowel preparation was fair. The ileocecal valve, appendiceal orifice, and rectum were photographed. Impression: - Preparation of the colon was fair. - Diverticulosis. - One 3 mm polyp in the transverse colon, removed with a jumbo cold forceps. Resected and retrieved. Findings: Diverticula were found in the colon. A 3 mm polyp was found in the transverse colon. The polyp was sessile. The polyp was removed with a jumbo cold forceps. Resection and retrieval were complete. Estimated blood loss: none. _ Recommendation: - Written discharge instructions were provided to the patient. - The signs and symptoms of potential delayed complications were discussed with the patient. - Patient has a contact number available for emergencies. - Return to normal activities tomorrow. - Resume previous diet. - Continue present medications. - Await pathology results. - Repeat colonoscopy in 3 - 5 years for surveillance based on pathology results. Procedure Code(s): --- Professional --- 66040, Colonoscopy, flexible; with biopsy, single or multiple --- Technical --- 85675, Colonoscopy, flexible; with biopsy, single or multiple Diagnosis Code(s): --- Professional --- Z12.11, Encounter for screening for malignant neoplasm of colon K63.5, Polyp of colon K57.30, Diverticulosis of large intestine without perforation or abscess without bleeding --- Technical --- Z12.11, Encounter for screening for malignant neoplasm of colon K63.5, Polyp of colon K57.30, Diverticulosis of large intestine without perforation or abscess without bleeding CPT copyright 2019 [employer]. All rights reserved. The codes documented in this report are preliminary and upon band and cuff cutter review may be revised to meet current compliance requirements. Mike Yepez MD 07/31/2022 9:47:36 AM This report has been signed electronically. Number of Addenda: 0 Note Initiated On: 07/31/2022 8:47 AM [facility] ENDOSCOPY 07/31/2022 8:47 AM IRIDOLOGIST us Mike Yepez MD GI PROCEDURE ORDERABLES Edited R esult - Final [facility] ENDOSCOPY * EYE EXAM (03/18/2022) Anatomical Region Laterality Modality Other Narrative 03/18/2022 Ordered by an unspecified provider. us Scanned Document SCANNING ONLY Final Result * HEPATITIS C ANTIBODY (09/30/2012 9:13 AM CDT) Hepatitis C Antibody <0.1 s/co ratio [facility] ACCOUNT BILL Comment: Negative: < 0.8 Indeterminate 0.8 - 0.9 Positive: > 0.9 . In order to reduce the incidence of a false positive result, the CDC recommends that all s/co ratios between 1.0 and 10.9 be confirmed by a more specific supplemental or PCR testing. [facility] offers [facility] Ab w/Reflex to Verification test #[id number]. Blood specimen (specimen) BLOOD SPECIMEN / Unknown 09/30/2012 9:13 AM CDT 09/30/2012 2:01 PM CDT Narrative Resulting Agency Comment [facility] [address] 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 Adv Directive/Living Will/POA 02/18/2017 11:41 PM Advance Directives and Living Will 12/07/2015 12:00 AM Adv Directive/Living Will/POA 01/25/2015 10:57 AM POA for health Care - graham * Full Code (Latest Code Status on File) Date Activated Date Inactivated Comments 09/02/2023 8:54 PM 09/05/2023 5:24 PM * Full Code Date Activated Date Inactivated Comments 10/21/2018 8:35 PM 10/22/2018 11:35 AM * FULL RESUSCITATION Date Activated Date Inactivated Comments 04/11/2011 3:49 PM 04/13/2011 5:02 AM Care Teams Geographic Information Systems Engineer Relationship Specialty Start Date End Date Walter York MD [address] [place] [phone] PCP - General Family Medicine 09/18/21 Walter York MD [address] [place] [phone] PCP - [facility] 06/02/24 Mike Yepez MD 6400 [facility] 216 [place] [address] Gastroenterology 01/12/10 Nikita Bailey MD [facility]5 [place] [address] Otolaryngology 07/06/15 Elias Harris MD 1035 [facility] 500 [place] [address] Pulmonary Disease 03/18/17 Hema Whaley MD 1027 [facility] 200 [place] [address] Cardiology 12/10/18 Anne Sharma MD [facility]5 [facility] 206 [place] [phone] Endocrinology 10/03/24 Justo Ferrer MD [address] [place] [phone] Orthopedic Surgery 10/03/24 Ansley Luciano OD [address] [place] [address] [place] [phone] Youth Corrections Officer Youth Corrections Officer 10/03/24
--- OUTSIDE RECORDS SUMMARY | 2024-12-05 00:20 | XMS_ITS | Encounter Summary ---
Author Organization [facility] Address [address] [place] [address] Care Team Providers Care Medical Engineer Name Role Phone Chi Goins MD Primary Care Provider [phone] Mike Yepez MD Unavailable Daniella Davis MD Unavailable Unav ailable Rachna Amador RN Unavailable [phone] Yusef Enciso MD Unavailable Unavailable Charlotte Torres RN Unavailable [phone] Paula Montelongo RN Unavailable [phone] Nikita Bailey MD Unavailable [phone] Chi Goins MD Unavailable [phone] Elias Harris MD Unavailable [phone] Mike Ge MD Unavailable [phone] Omar Painter MD Unavailable [phone] Hema Whaley MD Unavailable [phone] Chi Goins MD Unavailable [phone] Walter York MD Primary Care Provider [phone] Walter York MD Primary Care Provider [phone] Walter York MD Unavailable [phone] Walter York MD Unavailable [phone] Gina Stacy RN Unavailable Bridget Dorinda CRITICAL CARE NURSE Unavailable Vanita Gutierrez M Unavailable [phone] Mike Gutierrezrussel Valiente Unavailable [phone] Walter York MD Unavailable Anne Sharma MD Unavailable Justo Ferrer MD Unavailable Mustapha Ansley M OD Unavailable [phone] Encounter Details Date Type Department Care Team (Late Contact Info) Description 04/24/2011 [facility] Outpatient Visit EXTERNAL NON-[facility] DEPT Unknown, Provider Social History Tobacco Use Types Packs/Day Years Used Date Smoking Tobacco: Every Day Cigarettes 1 34 Smokeless Tobacco: Never Alcohol Use Standard Drinks/Week Comments No 0 (1 standard drink = 0.6 oz pur e alcohol) Comments No Sex and Gender Information Value Date Recorded Sex Assigned at Not on file Legal Sex Female 6:39 AM BRAKE COUPLER DINKEY Gender Identity Female 07/31/2022 8:08 AM BRAKE COUPLER DINKEY Sexual Orientation Not on file 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 encounter Plan of Treatment Upcoming Encounters Date Type Department Care Team (Late Contact Info) Description 12/07/2024 11:00 AM CDT Clinical Support [facility] Orthopedics [address] [place] [phone] 02/03/2025 10:30 AM CDT Office Visit [facility] Heart & Vascular Care [facility] [address] [place] [address] Hema Whaley MD [address] [place] [address] [address] [place] [address] 02/08/2025 12:40 PM CDT Office Visit [facility] Medical Group - Endocrinology [address] [address], [facility] 206 [place] [address] Lupillo Garcia, REHAB TRAINER-SAP MOBILITY ARCHITECT [address] [facility], [address] [place] [address] 04/06/2025 9:20 AM BRAKE COUPLER DINKEY Office Visit [facility] Medical [facility] - Internal Medicine [address] [facility] [place] [address] Laura Mckeon, REHAB TRAINER-SAP MOBILITY ARCHITECT [address] [facility] [place] [phone] 04/06/2025 1:40 PM BRAKE COUPLER DINKEY Office Visit [facility] - Pulmonology [address] [facility], [address] [place] [address] Elias Harris MD 1035 [facility] [address] [place] [address] 04/22/2025 11:00 AM BRAKE COUPLER DINKEY Office Visit [facility] Physician Group - Ophthalmology [address] [facility], [place] [phone] David Palumbo OD [address] [place] [phone] documented as of this encounter Visit Diagnoses Not on filedocumented in this encounter Care Teams Medical Engineer Relationship Specialty Start Date End Date Chi Goins MD PCP - General 09/19/08 04/30/20 Chi Goins MD [address] [place] [address] PCP - Attributed-[facility] 11/15/16 06/01/19 Chi Goins MD [address] [place] [address] PCP - Attributed-[facility] STL 12/01/19 11/18/22 Walter York MD [address] [place] [address] PCP - General Family Medicine 05/01/20 09/17/21 Walter York MD [address] [place] [address] PCP - General Family Medicine 09/18/21 Walter York MD [address] [place] [address] PCP - Attributed-[facility] [place] 06/02/21 09/17/22 Walter York MD [address] [place] [address] PCP - Attributed-[facility] [place] 07/31/22 03/19/24 Walter York MD [address] [place] [address] PCP - Attributed-[facility] [place] 06/02/24 Mike Yepez MD [address] [place] [phone] Gastroenterology 01/12/10 Daniella Davis MD 01/12/10 10/04/24 Rachna Amador, RN [address] [place] [address] Regional Director Of Admissions 06/22/12 12/14/14 Yusef Enciso MD [address] [place] [address] Ophthalmology 08/10/12 10/02/24 Charlotte Torres, WINSOME 1101 [facility] 300 [place] [phone] Regional Director Of AdmissionsMetal Forger'S Assistant 12/15/14 02/26/15 Paula Montelongo, WINSOME 1011 [facility] 300 [place] [address] Regional Director Of AdmissionsMetal Forger'S Assistant 02/27/15 06/25/15 Nikita Bailey MD [facility]5 [place] [address] Otolaryngology 07/06/15 Elias Harris MD 1035 [facility] 500 [place] [address] Pulmonary Disease 03/18/17 Mike Ge MD [address] [place] [address] 425 [place] [address] General Surgery 03/31/17 07/18/19 Omar Painter MD [address] [place] [address] 425 [place] [address] Orthopedic Surgery 12/10/18 10/02/24 Hema Whaley MD 1027 [facility] 200 [place] [address] Cardiology 12/10/18 Gina Stacy RN Regional Director Of AdmissionsMetal Forger'S Assistant 05/09/23 06/17/23 Dorinda Gill MSW Outpatient Technical Services Rep Care Management 09/08/23 09/25/23 Vanita Gutierrez Care Coordination Specialist Care Management 10/03/23 10/03/23 Vanita Gutierrez Care Coordination Specialist Care Management 04/07/24 04/07/24 Anne Sharma MD [address] [phone] Endocrinology 10/03/24 Justo Ferrer MD [address] [place] [address] Orthopedic Surgery 10/03/24 Ansley Luciano, MARCO A [address] [facility] DEPT [place] [phone] Service Line Layer Service Line Layer 10/03/24 documented as of this encounter
--- OUTSIDE RECORDS SUMMARY | 2024-12-05 00:20 | XMS_ITS | Encounter Summary ---
Author Organization [facility] Address [address] [facility] [place] [address] Care Team Providers Care Erp Manager Name Role Phone Chi Goins MD Primary Care Provider [phone] Mike Yepez MD Unavailable Daniella Davis MD Unavailable Unav ailable Rachna Amador RN Unavailable [phone] Yusef Enciso MD Unavailable Unavailable Charlotte Torres RN Unavailable [phone] Paula Montelongo RN Unavailable [phone] Nikita Bailey MD Unavailable [phone] Chi Goins MD Unavailable [phone] Elias Harris MD Unavailable [phone] Mike Ge MD Unavailable [phone] Omar Painter MD Unavailable [phone] Hema Whaley MD Unavailable [phone] Chi Goins MD Unavailable [phone] Walter York MD Primary Care Provider [phone] Walter York MD Primary Care Provider [phone] Walter York MD Unavailable [phone] Walter York MD Unavailable [phone] Gina Stacy RN Unavailable Dorinda Gill MOBILE ARCHITECT Unavailable [phone] GutierrezMikeVanita M Unavailable [phone] Vanita Gutierrez Unavailable [phone] Walter York MD Unavailable [phone] Anne Sharma MD Unavailable Justo Ferrer MD Unavailable Ansley Luciano OD Unavailable [phone] Encounter Details Date Type Department Care Team (Late Contact Info) Description 05/01/2011 [facility] Outpatient Visit 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 encounter Plan of Treatment Upcoming Encounters Date Type Department Care Team (Late Contact Info) Description 12/07/2024 11:00 AM CDT Clinical Support [facility] Orthopedics [address] [facility], [address] [address] 02/03/2025 10:30 AM CDT Office Visit [facility] Heart & Vascular Care [address] [place] [address] [address] [place] [address] Hema Whaley MD [address] [place] [address] 200 [place], [place] [phone] 02/08/2025 12:40 PM CDT Office Visit [facility] Medical Group - Endocrinology [address] [place] [address], [address] [place] [phone] uLpillo Garcia [employer]-DIAMOND SIZER AND GRADER [address] [facility], [address] [place] [address] 04/06/2025 9:20 AM ENGLISH ADJUNCT FACULTY Office Visit [facility] Medical [facility] - Internal Medicine [address] [facility] [place] [place] [address] Laura Mckeon, [employer] MED[employer]-DIAMOND SIZER AND GRADER [address] [facility] [place] [address] 04/06/2025 1:40 PM ENGLISH ADJUNCT FACULTY Office Visit [facility] - Pulmonology [address] [facility], [address] [place] [address] Elias Harris MD [address] [facility] [address] [place] [address] 04/22/2025 11:00 AM ENGLISH ADJUNCT FACULTY Office Visit [facility] - Ophthalmology [address] [facility], [place] [address] David Palumbo OD [address] [place] [phone] documented as of this encounter Visit Diagnoses Not on filedocumented in this encounter Care Teams Erp Manager Relationship Specialty Start Date End Date Chi Goins MD PCP - General 09/19/08 04/30/20 Chi Goins MD [address] [place] [address] PCP - Attributed-[facility] 11/15/16 06/01/19 Chi Goins MD [address] [place] [address] PCP - Attributed-[facility] STL 12/01/19 11/18/22 Walter York MD [address] [place] [address] PCP - General Family Medicine 05/01/20 09/17/21 Walter York MD [address] [place] [address] PCP - General Family Medicine 09/18/21 Walter York MD [address] [place] [address] PCP - Attributed-[facility] [place] 06/02/21 09/17/22 Walter York MD [address] [place] [address] PCP - Attributed-[facility] [place] 07/31/22 03/19/24 Walter York MD [address] [place] [address] PCP - Attributed-[employer] [place] 06/02/24 Mike Yepez MD [address] [place] [address] 216 [place] [address] Gastroenterology 01/12/10 Daniella Davis MD 01/12/10 10/04/24 Rachna Amador, RN [address] [place] [address] Real Estate Sales Associate 06/22/12 12/14/14 Yusef Enciso MD [address] [place] [address] Ophthalmology 08/10/12 10/02/24 Charlotte Torres, WINSOME 1101 [facility] [address] [place] [phone] Real Estate Sales AssociateSoftware Engineer Web Applications 12/15/14 02/26/15 Paula Montelongo, WINSOME 1011 [facility] [address] [place] [address] Real Estate Sales AssociateSoftware Engineer Web Applications 02/27/15 06/25/15 Nikita Bailey MD [facility]5 [place] [address] Otolaryngology 07/06/15 Elias Harris MD [address] [facility] [address] [place] [address] Pulmonary Disease 03/18/17 Mike Ge MD [address] [place] [address] 425 [place] [address] General Surgery 03/31/17 07/18/19 Omar Painter MD [address] [place] [address] 425 [place] [address] Orthopedic Surgery 12/10/18 10/02/24 Hema Whaley MD 1027 [facility] 200 [place] [address] Cardiology 12/10/18 Gina Stacy RN Real Estate Sales AssociateSoftware Engineer Web Applications 05/09/23 06/17/23 Dorinda Gill MSW Outpatient Seed Production Field Supervisor Care Management 09/08/23 09/25/23 Vanita Gutierrez Care Coordination Specialist Care Management 10/03/23 10/03/23 Vanita Gutierrez Care Coordination Specialist Care Management 04/07/24 04/07/24 Anne Sharma MD [address] [address] Endocrinology 10/03/24 Justo Ferrer MD [address] [place] [address] Orthopedic Surgery 10/03/24 Ansley Luciano, MARCO A [address] [facility] [place] [phone] Information Systems Analyst Information Systems Analyst 10/03/24 documented as of this encounter
--- OUTSIDE RECORDS SUMMARY | 2024-12-05 00:20 | XMS_ITS | Encounter Summary ---
Author Organization [facility] Address [address] [place] [address] Care Team Providers Care Ux Design Manager Name Role Phone Chi Goins MD Primary Care Provider [phone] Mike Yepez MD Unavailable Daniella Davis MD Unavailable Unav ailable Yusef Enciso MD Unavailable Unavailable Nikita Bailey MD Unavailable +[phone] Chi Goins MD Unavailable +[phone] Elias Harris MD Unavailable +[phone] Mike Ge MD Unavailable +[phone] Omar Painter MD Unavailable +[phone] Hema Whaley MD Unavailable +[phone] Chi Goins MD Unavailable +[phone] Waletr York MD Primary Care Provider +[phone] Walter York MD Primary Care Provider +[phone] Walter York MD Unavailable [phone] Walter York MD Unavailable [phone] Gina Stacy RN Unavailable Dorinda Gill FOREST MANAGEMENT PROFESSOR Unavailable +[phone] Vanita Gutierrez Unavailable +[phone] Vanita Gutierrez Unavailable +[phone] Walter York MD Unavailable [phone] Anne Shrama MD Unavailable Justo Ferrer MD Unavailable Ansley Luciano OD Unavailable [phone] Encounter Details Date Type Department Care Team (Late Contact Info) Description 10/11/2015 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 Health Medical [facility] - Endocrinology [address] [place] [address], [address] [place] [address] Lupillo Garcia, GEOGRAPHIC INFORMATION SYSTEMS DIRECTOR-BALLOON SANDER [address] [place] [address], [address] [place] [address] 04/06/2025 9:20 AM CORD MAKER Office Visit [facility] Medical [facility] - Internal Medicine [address] [facility] [place] [address] Narajulio césar Laura Damian, GEOGRAPHIC INFORMATION SYSTEMS DIRECTOR-BALLOON SANDER [address] [facility] [place] [address] 04/06/2025 1:40 PM CORD MAKER Office Visit [facility] - Pulmonology [address] [facility] [address] [place] [address] Elias Harris MD 1035 [facility] [address] [place] [address] 04/22/2025 11:00 AM CORD MAKER Office Visit [facility]ician Group - Ophthalmology 1225 [place] [phone] David Palumbo, MARCO A 1225 [place] [address] documented as of this encounter Goals Goal Patient Goal Type Associated Problems Recent Progress Patient-Stated? Author Blood Pressure < 140/90 Blood Pressure 130/60(2024 10:48 AM CDT) No Rachna Amador, WINSOME Increase vegetable intake to 2 servings daily Lifestyle BMI 29.0-29.9,adult Not on track( 9:29 AM CDT) No Rachna Amador, WINSOME Quit smoking / using tobacco Lifestyle Not on track( 10:16 AM CDT) No Rachna Amador, RN [facility] Lifestyle: Have labs drawn Lifestyle On track( 9:29 AM CDT) Chrissy Vázquez HEMOGLOBIN A1C < 8 Result Component 6.6( 4 3:41 AM CDT) No Rachna Amador, WINSOME documented as of this encounter Visit Diagnoses Not on filedocumented in this encounter Care Teams Ux Design Manager Relationship Specialty Start Date End Date Chi Goins MD PCP - General 09/19/08 04/30/20 Chi Goins MD [address] [place] [address] PCP - Attributed-Exclusive Choice 11/15/16 06/01/19 Chi Goins MD [address] [place] [address] PCP - Attributed-[facility] EHP STL 12/01/19 11/18/22 Walter York MD [address] [place] [address] PCP - General Family Medicine 05/01/20 09/17/21 Walter York MD [address] [place] [address] PCP - General Family Medicine 09/18/21 Walter York MD [address] [place] [address] PCP - Attributed-[facility] [place] 06/02/21 09/17/22 Walter York MD [address] [place] [address] PCP - Attributed-[facility] [place] 07/31/22 03/19/24 Walter York MD [address] [place] [address] PCP - Attributed-[facility] 06/02/24 Mike Yepez MD [address] [place] [address] 216 [place] [address] Gastroenterology 01/12/10 Daniella Davis MD 01/12/10 10/04/24 Yusef Encsio MD Ophthalmology 08/10/12 10/02/24 Nikita Bailey MD [address] [place] [address] Otolaryngology 07/06/15 Elias Harris MD [address] [place] [address] 500 [place] [address] Pulmonary Disease 03/18/17 Mike Ge MD [address] [place] [address] 425 [place], [place] [phone] General Surgery 03/31/17 07/18/19 Omar Painter MD [address] [place] [address] 425 [place], [place] [address] Orthopedic Surgery 12/10/18 10/02/24 Hema Whaley MD [address] [place] [address] 200 [place] [address] Cardiology 12/10/18 Gina Stacy, RN Wildlife Policy ProfessionalProduction Sampler 05/09/23 06/17/23 Dorinda Gill MSW Outpatient Grain Processor Care Management 09/08/23 09/25/23 Vanita Gutierrez Care Coordination Specialist Care Management 10/03/23 10/03/23 Vanita Gutierrez Care Coordination Specialist Care Management 04/07/24 04/07/24 Anne Sharma MD [address] [address] Endocrinology 10/03/24 Justo Ferrer MD 1120 [place] [address] Orthopedic Surgery 10/03/24 Asnley Luciano OD [address] [facility] [place] [address] Crown Assembly Machine Set Up Mechanic Crown Assembly Machine Set Up Mechanic 10/03/24 documented as of this encounter
--- OUTSIDE RECORDS SUMMARY | 2024-12-05 00:20 | XMS_ITS | Encounter Summary ---
Author Organization [facility] Address [address] [place] [address] Care Team Providers Care Correctional Cook Name Role Phone Chi Goins MD Primary Care Provider [phone] Mike Yepez MD Unavailable Daniella Davis MD Unavailable Unav ailable Yusef Enciso MD Unavailable Unavailable Nikita Bailey MD Unavailable [phone] Chi Goins MD Unavailable +[phone] Elias Harris MD Unavailable +[phone] Mike Ge MD Unavailable [phone] Omar Painter MD Unavailable Hema Whaley MD Unavailable [phone] Chi Goins MD Unavailable [phone] Walter York MD Primary Care Provider +[phone] Walter York MD Primary Care Provider +[phone] Walter York MD Unavailable [phone] Walter York MD Unavailable [phone] Gina Stacy RN Unavailable Dorinda Gill FLY SETTER Unavailable [phone] Vanita Gutierrez Unavailable [phone] Vanita Gutierrez Unavailable [phone] Walter York MD Unavailable [phone] Anne Sharma MD Unavailable Justo Ferrer MD Unavailable [phone] Mustapha Ansley M OD Unavailable [phone] Encounter Details Date Type Department Care Team (Late Contact Info) Description 09/27/2015 Therapy Visit [facility] SC[facility] [address] [place] [address] Document, Scanned Social History Tobacco Use Types Packs/Day Years Used Date Smoking Tobacco: Every Day Cigarettes 1 34 Smokeless Tobacco: Never Alcohol Use Standard Drinks/Week Comments Yes 0 (1 standard drink = 0.6 oz pur e alcohol) rarely Comments No Sex and Gender Information Value Date Recorded Sex Assigned at Not on file Legal Sex Female 6:39 AM RIG HAND Gender Identity Female 07/31/2022 8:08 AM RIG HAND Sexual Orientation Not on file 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 encounter Plan of Treatment Upcoming Encounters Date Type Department Care Team (Late Contact Info) Description 12/07/2024 11:00 AM CDT Clinical Support [facility] Orthopedics [address] [place] [address] 100 [place] [address] 02/03/2025 10:30 AM CDT Office Visit [facility] Heart & Vascular Care [address] [place] [address] [address] [place] [address] Hema Whaley MD [address] [place] [address] [address] [place] [address] 02/08/2025 12:40 PM CDT Office Visit [facility] Medical Group - Endocrinology [address] [place] [address], [address] [place] [address] Lupillo Garcia, DENITRATOR-BOILER TENDERS SUPERVISOR [address] [place] [address], [address] [place] [address] 04/06/2025 9:20 AM RIG HAND Office Visit [facility] Medical [facility] - Internal Medicine [address] [facility] [place] [address] Narajulio césar Laura Damian, DENITRATOR-BOILER TENDERS SUPERVISOR [address] [facility] [place] [address] 04/06/2025 1:40 PM RIG HAND Office Visit [facility] - Pulmonology [address] [facility] [address] [place] [address] Elias Harris MD 10[address] [facility] [address] [place] [address] 04/22/2025 11:00 AM RIG HAND Office Visit [facility] Physician Group - Ophthalmology 1225 [place] [address] David Palumbo, MARCO A 1225 [place] [address] documented as of this encounter Goals Goal Patient Goal Type Associated Problems Recent Progress Patient-Stated? Author Blood Pressure < 140/90 Blood Pressure 130/60(2024 10:48 AM CDT) No Rachna Amador, WINSOME Increase vegetable intake to 2 servings daily Lifestyle BMI 29.0-29.9,adult Not on track( 9:29 AM CDT) No Rachna Amador, RN Quit smoking / using tobacco Lifestyle Not on track( 10:16 AM CDT) No Rachna Amador, WINSOME [facility] Lifestyle: Have labs drawn Lifestyle On track( 9:29 AM CDT) No Chrissy Evans HEMOGLOBIN A1C < 8 Result Component 6.6( 3:41 AM CDT) No Rachna Amador, RN documented as of this encounter Visit Diagnoses Not on filedocumented in this encounter Care Teams Correctional Cook Relationship Specialty Start Date End Date Chi Goins MD PCP - General 09/19/08 04/30/20 Chi Goins MD [address] [place] [address] PCP - Attributed-Exclusive Choice 11/15/16 06/01/19 Chi Goins MD [address] [place] [address] PCP - Attributed-[facility] EHP STL 12/01/19 11/18/22 Walter York MD [address] [place] [address] PCP - General Family Medicine 05/01/20 09/17/21 Walter York MD [address] [place] [address] PCP - General Family Medicine 09/18/21 Walter York MD [address] [place] [address] PCP - Attributed-[facility] [place] 06/02/21 09/17/22 Walter York MD [address] [place] [address] PCP - Attributed-[facility] [place] 07/31/22 03/19/24 Walter York MD [address] [place] [address] PCP - Attributed-[facility] 06/02/24 Mike Yepez MD [address] [place] [address] 216 [place], [place] [phone] Gastroenterology 01/12/10 Daniella Davis MD 01/12/10 10/04/24 Yusef Enciso MD [facility] 08/10/12 10/02/24 Nikita Bailey MD [address] [place] [address] Otolaryngology 07/06/15 Elias Harris MD [address] [place] [address] 500 [place] [address] Pulmonary Disease 03/18/17 Mike Ge MD [address] [place] [address] 425 [place], [place] [address] General Surgery 03/31/17 07/18/19 Omar Painter MD [address] [place] [address] 425 [place] [address] Orthopedic Surgery 12/10/18 10/02/24 Hema Whaley MD [address] [place] [address] 200 [place] [address] Cardiology 12/10/18 Gina Stacy, RN Pre School ManagerGas Transfer Operator 05/09/23 06/17/23 Dorinda Gill MSW Outpatient Pedigree Tracer Care Management 09/08/23 09/25/23 Vanita Gutierrez Care Coordination Specialist Care Management 10/03/23 10/03/23 Vanita Gutierrez Care Coordination Specialist Care Management 04/07/24 04/07/24 Anne Sharma MD [address] [address] Endocrinology 10/03/24 Justo Ferrer MD 1120 [place] [address] Orthopedic Surgery 10/03/24 Ansley Luciano, MACRO A [address] [facility] [place] [address] Aluminum Siding Installer Aluminum Siding Installer 10/03/24 documented as of this encounter
--- OUTSIDE RECORDS SUMMARY | 2024-12-05 00:20 | XMS_ITS | Encounter Summary ---
Author Organization [facility] Address [address] [address] [place] [address] Care Team Providers Care Pricer Bagger Name Role Phone Chi Goins MD Primary Care Provider [phone] Mike Yepez MD Unavailable Daniella Davis MD Unavailable Unav ailable Rachna Amador RN Unavailable [phone] Yusef Enciso MD Unavailable Unavailable Charlotte Torres RN Unavailable [phone] Paula Montelongo RN Unavailable [phone] Nikita Bailey MD Unavailable [phone] Chi Goins MD Unavailable [phone] Elias Harris MD Unavailable [phone] Mike Ge MD Unavailable [phone] Omar Painter MD Unavailable [phone] Hema Whaley MD Unavailable +[phone] Chi Goins MD Unavailable +[phone] Walter York MD Primary Care Provider [phone] Walter York MD Primary Care Provider [phone] Walter York MD Unavailable [phone] Walter York MD Unavailable [phone] Gina Stacy RN Unavailable Bridget Dorinda AIR CARGO SPECIALIST Unavailable [phone] Vanita Gutierrez M Unavailable +[phone] GutierrezMikeVanita M Unavailable [phone] Walter York MD Unavailable [phone] Anne Sharma MD Unavailable [phone] Justo Ferrer MD Unavailable Mustapha Ansley M OD Unavailable [phone] Encounter Details Date Type Department Care Team (Late Contact Info) Description 04/26/2011 [facility] Outpatient Visit EXTERNAL NON-[facility] DEPT [...] on file Legal Sex Female 6:39 AM CHANGE MANAGEMENT MANAGER Gender Identity Female 07/31/2022 8:08 AM CHANGE MANAGEMENT MANAGER Sexual Orientation Not on file 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 [address] [place] [address] Hema Whaley MD [address] [place] [address] [address] 200 [place] [address] 02/08/2025 12:40 PM CDT Office Visit [facility] Medical Group - Endocrinology [address] [place] [address], [facility] 206 [place] [address] Lupillo Garcia, DIRECTOR GOVERNMENT-DOCTOR OF NURSING PRACTICE [address]35 [facility], [address] [place] [address] 04/06/2025 9:20 AM CHANGE MANAGEMENT MANAGER Office Visit [facility] Medical [facility] - Internal Medicine [address] [facility] [place] [address] Laura Mckeon, DIRECTOR GOVERNMENT-DOCTOR OF NURSING PRACTICE [address] [facility] [place] [address] 04/06/2025 1:40 PM CHANGE MANAGEMENT MANAGER Office Visit [facility] - Pulmonology [address] [facility], [address] [place] [address] Elias Harris MD [address] [facility] [address] [place] [address] 04/22/2025 11:00 AM CHANGE MANAGEMENT MANAGER Office Visit [facility] Physician Group - Ophthalmology 1225 [facility], [place] [address] David Palumbo OD [address] [place] [phone] documented as of this encounter Visit Diagnoses Not on filedocumented in this encounter Care Teams Pricer Bagger Relationship Specialty Start Date End Date Chi Goins MD PCP - General 09/19/08 04/30/20 Chi Goins MD 8670 [place] [address] PCP - Attributed-Exclusive Choice 11/15/16 06/01/19 Chi Goins MD [address]70 [place] [address] PCP - Attributed-[facility] EHP STL 12/01/19 11/18/22 Walter York MD [address]70 [place] [address] PCP - General Family Medicine 05/01/20 09/17/21 Walter York MD [address]70 [place] [address] PCP - General Family Medicine 09/18/21 Walter York MD [address]70 [place] [address] PCP - Attributed-[facility] [place] 06/02/21 09/17/22 Walter York MD 8670 [place] [address] PCP - Attributed-[facility] [place] 07/31/22 03/19/24 Walter York MD [address]70 [place] [address] PCP - Attributed-[employer] [place] 06/02/24 Mike Yepez MD [address] [place] [id number] Gastroenterology 01/12/10 Daniella Davis MD 01/12/10 10/04/24 Rachna Amador, RN 8670 [place] [address] Accounting Tutor 06/22/12 12/14/14 Yusef Enciso MD [address]70 [place] [address] Ophthalmology 08/10/12 10/02/24 Charlotte Torres, WINSOME 1101 [facility] 300 [place] [address] Accounting TutorCommunity Planner 12/15/14 02/26/15 Paula Montelongo, WINSOME 1011 [facility] 300 [place] [address] Accounting TutorCommunity Planner 02/27/15 06/25/15 Nikita Bailey MD [facility]5 [place] [address] Otolaryngology 07/06/15 Elias Harris MD 1035 [facility] 500 [place] [address] Pulmonary Disease 03/18/17 Mike Ge MD [address] [place] [address] 425 [place] [address] General Surgery 03/31/17 07/18/19 Omar Painter MD [address] [place] [address] 425 [place] [address] Orthopedic Surgery 12/10/18 10/02/24 Hema Whaley MD 1027 [facility] 200 [place] [address] Cardiology 12/10/18 Gina Stacy RN Accounting TutorCommunity Planner 05/09/23 06/17/23 Dorinda Gill MSW Outpatient Machinery Mover Care Management 09/08/23 09/25/23 Vanita Gutierrez Care Coordination Specialist Care Management 10/03/23 10/03/23 Vanita Gutierrez Care Coordination Specialist Care Management 04/07/24 04/07/24 Anne Sharma MD [address] [phone] Endocrinology 10/03/24 Justo Ferrer MD [address] [place] [address] Orthopedic Surgery 10/03/24 Ansley Luciano, MARCO A [address] [facility] DEPT [place] [address] Biology Instructor Biology Instructor 10/03/24 documented as of this encounter
--- OUTSIDE RECORDS SUMMARY | 2024-12-05 00:20 | XMS_ITS | Encounter Summary ---
Author Organization [facility] Address [address] [facility] [place] [address] Care Team Providers Care Scientific Systems Analyst Name Role Phone Mike Yepez MD Unavailable Nikita Bailey MD Unavailable Elias Harris MD Unavailable Hema Whaley MD Unavailable Walter York MD Primary Care Provider Walter York MD Unavailable [phone] Anne Sharma MD Unavailable Justo Ferrer MD Unavailable [phone] Ansley Luciano OD Unavailable [phone] Encounter Details Date Type Department Care Team (Late st Contact Info) Description 10/17/2024 Results Follow-Up [facility] Medical [facility] - Internal Medicine [address] [facility] [place] [address] Laura Mckeon, DIRECTOR OF STRATEGIC MARKETING-WHARF TENDER HELPER [address] [facility] [place] [address] Social History Tobacco Use Types Packs/Day Years [...] Recorded Patient Health Questionnaire-2 Score 0 09/30/2024 [facility] - Occupational Stress [...] place to sleep or slept in a mcfp (including now)? No 09/03/2023 Education Answer Date Recorded What is the highest level of school you have completed or the highest degree you have received? 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 Answer Date of Assessment Author No 09/02/2023 9:27 PM Analilia Ramirez RN * Is person blind or have serious difficulty seeing? Answer Date of Assessment Author No 09/02/2023 9:27 PM Analilia Ramirez RN * Does person have serious difficulty walking/climbing stairs? Answer Date of Assessment Author No 09/02/2023 9:27 PM Analilia Ramirez RN * Does person have difficulty dressing/bathing? Answer Date of Assessment Author No 09/02/2023 9:27 PM Analilia Ramirez RN * Does person have difficulty doing errands alone? Answer Date of Assessment Author No 09/02/2023 9:27 PM Analilia Ramirez RN documented as of this encounter Mental Status * Does person have difficulty concentrating/remembering/making decisions? Answer Entry Date Author No 09/02/2023 9:27 PM Analilia Ramirez RN documented in this encounter Plan of Treatment Upcoming Encounters Date Type Department Care Team (Late st Contact Info) Description 12/07/2024 11:00 AM CDT Clinical Support [facility] Orthopedics [address] [facility], [address] [place] [address] 02/03/2025 10:30 AM CDT Office Visit [facility] [address] [facility] [address] [place] [address] Hema Whaley MD [address] [place] [address] [address] [place] [address] 02/08/2025 12:40 PM CDT Office Visit [facility] - Endocrinology [address] [place] [address], [address] [place] [address] Lupillo Garcia DIRECTOR OF STRATEGIC MARKETING-WHARF TENDER HELPER [address] [place] [address], [address] [place] [phone] 04/06/2025 9:20 AM TOOL DESIGNER Office Visit [facility] Medical [facility] - Internal Medicine [address] [facility] [place] [address] Laura Mckeon, DIRECTOR OF STRATEGIC MARKETING-WHARF TENDER HELPER [address] [facility] [place] [address] 04/06/2025 1:40 PM TOOL DESIGNER Office Visit [facility] - Pulmonology [address] [place] [address], [address] [place] [address] lEias Harris MD [address] [place] [address] [address] [place] [address] 04/22/2025 11:00 AM TOOL DESIGNER Office Visit [facility] - Ophthalmology [facility] [facility], [place] [address] David Palumbo OD [address] [place] [phone] documented as of this encounter Goals Goal [...] on track( 9:29 AM CDT) No Rachna Amador RN Quit smoking / using tobacco Lifestyle Not on track( 10:16 AM CDT) No Rachna Amador RN [facility] Lifestyle: Have labs drawn Lifestyle On track( 9:29 AM CDT) Chrissy Vázquez HEMOGLOBIN A1C < 8 Result Component 6.6( 4 3:41 AM CDT) No Rachna Amador RN documented as of this encounter Visit Diagnoses Not on filedocumented in this encounter Care Teams Scientific Systems Analyst Relationship Specialty Start Date End Date Walter York MD [address] [place] [address] PCP - General Family Medicine 09/18/21 Walter York MD [address] [place] [address] PCP - [facility] 06/02/24 Mike Yepez MD [address] [place] [address] Gastroenterology 01/12/10 Nikita Bailey MD [address] [place] [address] Otolaryngology 07/06/15 Elias Harris MD [address] [facility] [address] [place] [address] Pulmonary Disease 03/18/17 Hema Whaley MD [facility]7 [facility] 200 [place] [address] Cardiology 12/10/18 Anne Sharma MD [facility]5 [facility] 206 [place] [phone] Endocrinology 10/03/24 Justo Ferrer MD [address] [place] [phone] Orthopedic Surgery 10/03/24 Ansley Luciano OD [address] [place] [address] [place] [address] Specimen Collector Specimen Collector 10/03/24 documented as of this encounter
--- OUTSIDE RECORDS SUMMARY | 2024-12-05 00:20 | XMS_ITS | Encounter Summary ---
Author Organization [facility] Address [address] [facility] [place] [address] Care Team Providers Care Upper Shaper Name Role Phone Chi Goins MD Primary Care Provider [phone] Mike Yepez MD Unavailable Daniella Davis MD Unavailable Unav ailable Rachna Amador RN Unavailable [phone] Yusef Enciso MD Unavailable Unavailable Charlotte Torres RN Unavailable [phone] Paula Montelongo RN Unavailable [phone] Nikita Bailey MD Unavailable [phone] Chi Goins MD Unavailable [phone] Elias Harris MD Unavailable [phone] Mike Ge MD Unavailable [phone] Omar Painter MD Unavailable [phone] Hema Whaley MD Unavailable [phone] Chi Goins MD Unavailable [phone] Walter York MD Primary Care Provider [phone] Walter York MD Primary Care Provider [phone] Walter York MD Unavailable [phone] Walter York MD Unavailable [phone] Gina Stacy RN Unavailable Dorinda Gill WIRE INSULATOR Unavailable [phone] GutierrezMikeVanita M Unavailable [phone] Vanita Gutierrez Unavailable [phone] Walter York MD Unavailable [phone] Anne Sharma MD Unavailable Justo Ferrer MD Unavailable Ansley Luciano OD Unavailable [phone] Encounter Details Date Type Department Care Team (Late Contact Info) Description 05/17/2011 [facility] Outpatient Visit [facility] REHAB [address] [place] [address] Unknown, Provider Social History Tobacco Use Types Packs/Day Years Used Date Smoking Tobacco: Every Day Cigarettes 1 34 Smokeless Tobacco: Never Alcohol Use Standard Drinks/Week Comments No 0 (1 standard drink = 0.6 oz pur e alcohol) Comments No Sex and Gender Information Value Date Recorded Sex Assigned at Not on file Legal Sex Female 6:39 AM ROLL OVER LOADER Gender Identity Female 07/31/2022 8:08 AM ROLL OVER LOADER Sexual Orientation Not on file 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 encounter Plan of Treatment Upcoming Encounters Date Type Department Care Team (Late Contact Info) Description 12/07/2024 11:00 AM CDT Clinical Support [facility] Orthopedics [address] [place] [address], [address] [address] 02/03/2025 10:30 AM CDT Office Visit [facility] Heart & Vascular Care [address] [place] [address] [address] [place] [address] Hema Whaley MD [address] [place] [address] 200 [place], [place] [phone] 02/08/2025 12:40 PM CDT Office Visit [facility] - Endocrinology [address] [place] [address], [address] [place] [phone] Lupillo Garcia FURNITURE SALES ASSOCIATE-SALESPERSON FURNITURE [address] [facility], [address] [place] [address] 04/06/2025 9:20 AM ROLL OVER LOADER Office Visit [facility] Medical [facility] - Internal Medicine [address] [facility] [place] [address] Laura Mckeon, FURNITURE SALES ASSOCIATE-SALESPERSON FURNITURE [address] [facility] [place] [address] 04/06/2025 1:40 PM ROLL OVER LOADER Office Visit [facility] - Pulmonology [address] [facility], [address] [place] [address] Elias Harris MD [address] [facility] [address] [place] [address] 04/22/2025 11:00 AM ROLL OVER LOADER Office Visit [facility] - Ophthalmology [address] [facility], [place] [address] David Palumbo OD [address] [place] [phone] documented as of this encounter Visit Diagnoses Not on filedocumented in this encounter Care Teams Upper Shaper Relationship Specialty Start Date End Date Chi Goins MD PCP - General 09/19/08 04/30/20 Chi Goins MD [address] [place] [address] PCP - Attributed-[facility] 11/15/16 06/01/19 Chi Goins MD [address] [place] [address] PCP - Attributed-[facility] STL 12/01/19 11/18/22 Walter York MD [address] [place] [address] PCP - General Family Medicine 05/01/20 09/17/21 Walter York MD [address] [place] [address] PCP - General Family Medicine 09/18/21 Walter York MD [address] [place] [address] PCP - Attributed-[facility] [place] 06/02/21 09/17/22 Walter York MD [address] [place] [address] PCP - Attributed-[facility] [place] 07/31/22 03/19/24 Walter York MD [address] [place] [address] PCP - Attributed-[facility] [place] 06/02/24 Mike Yepez MD [address] [place] [address] 216 [place] [address] Gastroenterology 01/12/10 Daniella Davis MD 01/12/10 10/04/24 Rachna Amador, RN [address] [place] [address] Dye Tub Operator 06/22/12 12/14/14 Yusef Enciso MD [address] [place] [address] Ophthalmology 08/10/12 10/02/24 Charlotte Torres, WINSOME [address] [facility] [address] [place] [phone] Dye Tub OperatorContent Coordinator 12/15/14 02/26/15 Paula Montelongo, WINSOME [address] [facility] [address] [place] [address] Dye Tub OperatorContent Coordinator 02/27/15 06/25/15 Nikita Bailey MD [facility] [place] [address] Otolaryngology 07/06/15 Elias Harris MD [address] [facility] [address] [place] [address] Pulmonary Disease 03/18/17 Mike Ge MD [address] [place] [address] 425 [place] [address] General Surgery 03/31/17 07/18/19 Omar Painter MD [address] [place] [address] 425 [place] [address] Orthopedic Surgery 12/10/18 10/02/24 Hema Whaley MD [address] [facility] 200 [place] [address] Cardiology 12/10/18 Gina Stacy RN Dye Tub OperatorContent Coordinator 05/09/23 06/17/23 Dorinda Gill MSW Outpatient Valet Runner Care Management 09/08/23 09/25/23 Vanita Gutierrez Care Coordination Specialist Care Management 10/03/23 10/03/23 Vanita Gutierrez Care Coordination Specialist Care Management 04/07/24 04/07/24 Anne Sharma MD [address] [address] Endocrinology 10/03/24 Justo Ferrer MD [address] [place] [address] Orthopedic Surgery 10/03/24 Ansley Luciano, MARCO A [address] [facility] DEPT [place] [phone] Vice President Business Development Vice President Business Development 10/03/24 documented as of this encounter
--- OUTSIDE RECORDS SUMMARY | 2024-12-05 00:20 | XMS_ITS | Encounter Summary ---
Author Organization [facility] Address [address] [facility] [place] [address] Care Team Providers Care Post Framer Name Role Phone Chi Goins MD Primary Care Provider [phone] Mike Yepez MD Unavailable Daniella Davsi MD Unavailable Unav ailable Rachna Amador RN Unavailable [phone] Yuesf Enciso MD Unavailable Unavailable Charlotte Torres RN Unavailable [phone] Paula Montelongo RN Unavailable [phone] Nikita Bailey MD Unavailable [phone] Chi Goins MD Unavailable [phone] Elias Harris MD Unavailable [phone] Mike Ge MD Unavailable [phone] Omar Painter MD Unavailable [phone] Hema Whaley MD Unavailable [phone] Chi Goins MD Unavailable [phone] Walter York MD Primary Care Provider [phone] Walter York MD Primary Care Provider [phone] Walter York MD Unavailable [phone] Walter York MD Unavailable [phone] Gina Stacy RN Unavailable Dorinda Gill IT HELP DESK ANALYST Unavailable [phone] Vanita Gutierrez M Unavailable [phone] Mike Gutierrezrussel Valiente Unavailable [phone] Walter York MD Unavailable [phone] Anne Sharma MD Unavailable Justo Ferrer MD Unavailable Mustapha Ansley M OD Unavailable [phone] Encounter Details Date Type Department Care Team (Late Contact Info) Description 04/11/2011 [facility] Outpatient Visit [facility] [address] [place] [address] [phone] [place] [address] [place], [place] [phone] Social History Tobacco Use Types Packs/Day Years Used Date Smoking Tobacco: Every Day Cigarettes 1 34 Smokeless Tobacco: Never Alcohol Use Standard Drinks/Week Comments No 0 (1 standard drink = 0.6 oz pur e alcohol) Comments No Sex and Gender Information Value Date Recorded Sex Assigned at Not on file Legal Sex Female 6:39 AM SAP BW DEVELOPER Gender Identity Female 07/31/2022 8:08 AM SAP BW DEVELOPER Sexual Orientation Not on file 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 encounter Plan of Treatment Upcoming Encounters Date Type Department Care Team (Late st Contact Info) Description 12/07/2024 11:00 AM CDT Clinical Support [facility] Orthopedics [address] [place] [address], [address] [address] 02/03/2025 10:30 AM CDT Office Visit [facility] Heart & Vascular Care [address] [place] [address] [address] [place], [place] [phone] Hema Whaley MD [address] [place] [address] [place] [address] 02/08/2025 12:40 PM CDT Office Visit [facility] Medical [facility] - Endocrinology [address] [facility], [address] [place] [phone] Lupillo Garcia TUBER HELPER-RETIREMENT ASSISTANT [address] [facility], [address] [place] [address] 04/06/2025 9:20 AM SAP BW DEVELOPER Office Visit [facility] Medical [facility] - Internal Medicine [address] [facility] [place] [address] Laura Mckeon, TUBER HELPER-RETIREMENT ASSISTANT [address] [facility] [place] [place] [address] 04/06/2025 1:40 PM SAP BW DEVELOPER Office Visit [facility] - Pulmonology [address] [facility], [address] [place] [address] Elias Harris MD [address] [facility] [address] [place] [address] 04/22/2025 11:00 AM SAP BW DEVELOPER Office Visit [facility] - Ophthalmology [address] [facility], [place] [address] David Palumbo OD [address] [place] [phone] documented as of this encounter Visit Diagnoses Not on filedocumented in this encounter Care Teams Post Framer Relationship Specialty Start Date End Date Chi Goins MD PCP - General 09/19/08 04/30/20 Chi Goins MD [address] [place] [address] [place] [address] PCP - Attributed-[facility] 11/15/16 06/01/19 Chi Goins MD [address] [place] [address] PCP - Attributed-[facility] STL 12/01/19 11/18/22 Walter York MD [address] [place] [address] PCP - General Family Medicine 05/01/20 09/17/21 Walter York MD [address] [place] [address] PCP - General Family Medicine 09/18/21 Walter York MD [address] [place] [address] PCP - Attributed[facility] [place] 06/02/21 09/17/22 Walter York MD [address] [place] [address] PCP - Attributed-[facility] [place] 07/31/22 03/19/24 Walter York MD [address] [place] [address] PCP - Attributed-[facility] [place] 06/02/24 Mike Yepez MD [address] [place] [address] Gastroenterology 01/12/10 Daniella Davis MD 01/12/10 10/04/24 Rachna Amador, RN [address] [place] [address] Rigger Helper 06/22/12 12/14/14 Yusef Enciso MD [address] [place] [address] Ophthalmology 08/10/12 10/02/24 Charlotte Torres, WINSOME [address] [facility] 300 [place] [phone] Rigger HelperMilk Treater 12/15/14 02/26/15 Paula Montelongo, RN [address] [facility] 300 [place] [address] Rigger HelperMilk Treater 02/27/15 06/25/15 Nikita Bailey MD [address] [place] [address] Otolaryngology 07/06/15 Elias Harris MD [address]35 [facility] [address] [place] [address] Pulmonary Disease 03/18/17 Mike Ge MD [address] [place] [address] 425 [place] [address] General Surgery 03/31/17 07/18/19 Omar Painter MD [address] [place] [address] 425 [place], [place] [phone] Orthopedic Surgery 12/10/18 10/02/24 Hema Whaley MD [address] [facility] 200 [place] [address] Cardiology 12/10/18 Gina Stacy, RN Rigger HelperMilk Treater 05/09/23 06/17/23 Dorinda Gill MSW Outpatient Tosser Care Management 09/08/23 09/25/23 Vanita Gutierrez Care Coordination Specialist Care Management 10/03/23 10/03/23 Vanita Gutierrez Care Coordination Specialist Care Management 04/07/24 04/07/24 Anne Sharma MD [address] [phone] Endocrinology 10/03/24 Justo Ferrer MD 1120 [place] [address] Orthopedic Surgery 10/03/24 Ansley Luciano, OD [address] [facility] DEPT [place] [phone] Dye House Supervisor Dye House Supervisor 10/03/24 documented as of this encounter
--- OUTSIDE RECORDS SUMMARY | 2024-12-05 00:20 | XMS_ITS | Clinical Summary ---
Author Organization [facility] Address [address] [place] [phone] Phone Care Team Providers Care Tick Inspector Name Role Phone Unavailable Primary Care Provider Unavailabl e Social History Tobacco Use Types Packs/Day Years Used Date Smoking Tobacco: Never Assessed Comments Unknown Sex and Gender Information Value Date Recorded Sex Assigned at Not on file Legal Sex Female 2:13 PM CDT Gender Identity Not on file Sexual Orientation Not on file Plan of Treatment Health Maintenance Due Date Last Done Comments DTAP/TDAP/TD VACCINES (1 - Tdap) 1974 BREAST CANCER SCREENING 1995 COLORECTAL SCREENING 01/05/2000 Colorectal Cancer Screening 01/05/2000 FIT-DNA Q 3 years 01/05/2000 FIT/FOBT Q 1 year 01/05/2000 Flex Sig/CT Colonography Q 5 years 01/05/2000 PNEUMOCOCCAL VACCINE 50+ YEARS (1 of 1 - PCV) 01/05/20 05 ZOSTER VACCINE (1 of 2) 2005 OSTEOPOROSIS SCREENING 01/05/2020 INFLUENZA VACCINE (#1) 2024 RSV VACCINE (60+ or ) (1 - 1-dose 75+ series) 2030
--- OUTSIDE RECORDS SUMMARY | 2024-12-05 00:20 | XMS_ITS | Encounter Summary ---
Author Organization [facility] Address [address] [place] [address] Care Team Providers Care Search Manager Name Role Phone Chi Goins MD Primary Care Provider [phone] Mike Yepez MD Unavailable Daniella Davis MD Unavailable Unav ailable Rachna Amador RN Unavailable [phone] Yusef Enciso MD Unavailable Unavailable Charlotte Torres RN Unavailable [phone] Paula Montelongo RN Unavailable [phone] Nikita Bailey MD Unavailable [phone] Chi Goins MD Unavailable +[phone] Elias Harris MD Unavailable +[phone] Mike Ge MD Unavailable Omar Painter MD Unavailable [phone] Hema Whaley MD Unavailable +[phone] Chi Goins MD Unavailable +[phone] Walter York MD Primary Care Provider +[phone] Walter York MD Primary Care Provider [phone] Walter York MD Unavailable +[phone] Walter York MD Unavailable +[phone] Gina Stacy RN Unavailable Dorinda Gill SPOUT WORKER Unavailable [phone] GutierrezMikeVanita M Unavailable +[phone] Vanita Gutierrez Unavailable Walter York MD Unavailable +[phone] Anne Sharma MD Unavailable Justo Ferrer MD Unavailable +[phone] Ansley Luciano OD Unavailable +[phone] Encounter Details Date Type Department Care Team (Late st Contact Info) Description 06/11/2013 [facility] Outpatient Visit [facility] REHAB [address] [place] [address] Unknown, Provider Social History Tobacco Use Types Packs/Day Years Used Date Smoking Tobacco: Every Day Cigarettes 1 34 Smokeless Tobacco: Never Alcohol Use Standard Drinks/Week Comments Yes 0 (1 standard drink = 0.6 oz pur e alcohol) rarely Comments No Sex and Gender Information Value Date Recorded Sex Assigned at Not on file Legal Sex Female 6:39 AM SEAL MIXER Gender Identity Female 07/31/2022 8:08 AM SEAL MIXER Sexual Orientation Not on file 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 encounter Plan of Treatment Upcoming Encounters Date Type Department Care Team (Late Contact Info) Description 12/07/2024 11:00 AM CDT Clinical Support [facility] [address] [facility], [address] [address] 02/03/2025 10:30 AM CDT Office Visit [facility] [address] [place] [address] [address] [place] [address] Hema Whaley MD [address] [place] [address] [address] [place], [place] [phone] 02/08/2025 12:40 PM CDT Office Visit [facility] - Endocrinology [address] [place] [address] Ave, [address] [place] [address] Lupillo Garcia GROUND SCHOOL INSTRUCTOR-BIZTALK CONSULTANT 10[address] [facility], [address] [place] [address] 04/06/2025 9:20 AM SEAL MIXER Office Visit [facility] - [facility] Medicine [address] [facility] [place] [address] Laura Mckeon, GROUND SCHOOL INSTRUCTOR-BIZTALK CONSULTANT [address] [facility] [place] [address] 04/06/2025 1:40 PM SEAL MIXER Office Visit [facility] - Pulmonology [address], [address] [place] [address] Elias Harris MD [address] [facility] [address] [place] [address] 04/22/2025 11:00 AM SEAL MIXER Office Visit [facility] - Ophthalmology 12[address] [facility], [place] [address] David Palumbo OD [address] [place] [phone] documented as of this encounter Goals Goal Patient Goal Type Associated Problems Recent Progress Patient-Stated? Author Increase vegetable intake to 2 servings daily Lifestyle BMI 29.0-29.9,adult Not on track( 015 9:29 AM CDT) No Rachna Amador, WINSOME HEMOGLOBIN A1C < 8 Result Component 6.6( 4 3:41 AM CDT) No Rachna Amador, RN documented as of this encounter Visit Diagnoses Not on filedocumented in this encounter Care Teams Search Manager Relationship Specialty Start Date End Date Chi Goins MD PCP - General 09/19/08 04/30/20 Chi Goins MD [address] [place] [address] PCP - Attributed-Exclusive Choice 11/15/16 06/01/19 Chi Goins MD [address] [facility] [place] [address] PCP - Attributed-[facility] EHP STL 12/01/19 11/18/22 Walter York MD [address] [place] [address] PCP - General Family Medicine 05/01/20 09/17/21 Walter York MD [address] [place] [address] PCP - General Family Medicine 09/18/21 Walter York MD [address] [place] [address] PCP - Attributed-[facility] [place] 06/02/21 09/17/22 Walter York MD [address] [place] [address] PCP - Attributed-[facility] MAPD [place] 07/31/22 03/19/24 Walter York MD [address] [place] [facility] [address] PCP - Attributed-Coventry [place] 06/02/24 Mike Yepez MD 6400 [facility] 216 [place] [address] Gastroenterology 01/12/10 Daniella Davis MD 01/12/10 10/04/24 Rachna Amador, WINSOME [address]70 [place] [address] Clinical Applications Specialist 06/22/12 12/14/14 Yusef Enciso MD [address]70 [place] [address] Ophthalmology 08/10/12 10/02/24 Charlotte Torres, WINSOME 1101 [facility] [address] [place] [address] Clinical Applications SpecialistToll Transmission Worker 12/15/14 02/26/15 Paula Montelongo, WINSOME 1011 [facility] [address] [place] [address] Clinical Applications SpecialistToll Transmission Worker 02/27/15 06/25/15 Nikita Bailey MD [facility]5 [place] [address] Otolaryngology 07/06/15 Elias Harris MD [address] [facility] [address] [place] [address] Pulmonary Disease 03/18/17 Mike Ge MD [address] [place] [address] 425 [place] [address] General Surgery 03/31/17 07/18/19 Omar Painter MD [address] [place] [address] [address] [place] [address] Orthopedic Surgery 12/10/18 10/02/24 Hema Whaley MD 1027 [facility] 200 [place] [address] Cardiology 12/10/18 Gina Stacy, RN Clinical Applications SpecialistToll Transmission Worker 05/09/23 06/17/23 Dorinda Gill MSW Outpatient Cloth Printer Helper Care Management 09/08/23 09/25/23 Vanita Gutierrez Care Coordination Specialist Care Management 10/03/23 10/03/23 Vanita Gutierrez Care Coordination Specialist Care Management 04/07/24 04/07/24 Anne Sharma MD [address] [facility] 206 [place] [address] Endocrinology 10/03/24 Justo Ferrer MD 1120 [place] [address] Orthopedic Surgery 10/03/24 Ansley Luciano, MARCO A [address] [facility] [place] [address] Editor Map Editor Map 10/03/24 documented as of this encounter
--- OUTSIDE RECORDS SUMMARY | 2024-12-05 00:20 | XMS_ITS | Encounter Summary ---
Author Organization [facility] Address [address] [facility] [place] [address] Care Team Providers Care Manager Adobe Name Role Phone Chi Goins MD Primary Care Provider [phone] Mike Yepez MD Unavailable Daniella Davis MD Unavailable Unav ailable Rachna Amador RN Unavailable [phone] Yusef Enciso MD Unavailable Unavailable Charlotte Torres RN Unavailable [phone] Paula Montelongo RN Unavailable [phone] Nikita Bailey MD Unavailable [phone] Chi Goins MD Unavailable [phone] Elias Harris MD Unavailable [phone] Mike Ge MD Unavailable [phone] Omar Painter MD Unavailable [phone] Hema Whaley MD Unavailable [phone] Chi Goins MD Unavailable [phone] Walter York MD Primary Care Provider [phone] Walter York MD Primary Care Provider [phone] Walter York MD Unavailable [phone] Walter York MD Unavailable [phone] Gina Stacy RN Unavailable Dorinda Gill ENGINEERING PRODUCTION LIAISON Unavailable [phone] Vanita Gutierrez M Unavailable [phone] Gutierrez, Vanita M Unavailable [phone] Walter York MD Unavailable [phone] Anne Sharma MD Unavailable [phone] Justo Ferrer MD Unavailable Ansley Luciano OD Unavailable Encounter Details Date Type Department Care Team (Late Contact Info) Description 03/16/2010 [facility] Outpatient Visit [facility] - Diabetes Education [address] [place] [address] Unknown, Provider Social History Tobacco Use Types Packs/Day Years Used Date Smoking Tobacco: Every Day Cigarettes 1 34 Alcohol Use Standard Drinks/Week Comments No 0 (1 standard drink = 0.6 oz pur e alcohol) Comments No Sex and Gender Information Value Date Recorded Sex Assigned at Not on file Legal Sex Female 6:39 AM TECHNICAL SUPERVISOR Gender Identity Female 07/31/2022 8:08 AM TECHNICAL SUPERVISOR Sexual Orientation Not on file 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 encounter Plan of Treatment Upcoming Encounters Date Type Department Care Team (Late Contact Info) Description 12/07/2024 11:00 AM CDT Clinical Support [facility] [address] [place] [address], [address] [address] 02/03/2025 10:30 AM CDT Office Visit [facility] [address] [place] [address] [address] [place] [address] Hema Whaley MD [address] [place] [address] [address] [place], [place] [phone] 02/08/2025 12:40 PM CDT Office Visit [facility] - Endocrinology [address] [place] [address], [address] [place] [address] Lupillo Garcia SALES AGENT TRADING STAMPS-MOLASSES FEED MIXER [address] [facility], [address] [place] [address] 04/06/2025 9:20 AM TECHNICAL SUPERVISOR Office Visit [facility] - Internal Medicine [address] [facility] [place] [address] Laura Mckeon, SALES AGENT TRADING STAMPS-MOLASSES FEED MIXER [address] [facility] [place] [address] 04/06/2025 1:40 PM TECHNICAL SUPERVISOR Office Visit [facility] - Pulmonology [address] [facility], [address] [place] [address] Elias Harris MD 1035 [facility] [address] [place] [address] 04/22/2025 11:00 AM TECHNICAL SUPERVISOR Office Visit [facility] - Ophthalmology [address] [facility], [place] [address] David Palumbo OD [address] [place] [phone] documented as of this encounter Visit Diagnoses Not on filedocumented in this encounter Care Teams Manager Adobe Relationship Specialty Start Date End Date Chi Goins MD PCP - General 09/19/08 04/30/20 Chi Goins MD [address]70 [place] [address] PCP - Attributed-Exclusive Choice 11/15/16 06/01/19 Chi Goins MD [address] [place], [place] [address] [phone] PCP - Attributed-[facility] EHP STL 12/01/19 11/18/22 Walter York MD [address]70 [place] [address] PCP - General Family Medicine 05/01/20 09/17/21 Walter York MD [address]70 [place] [address] PCP - General Family Medicine 09/18/21 Walter York MD [address]70 [place] [address] PCP - Attributed-[facility] [place] 06/02/21 09/17/22 Walter York MD [address]70 [place] [address] PCP - Attributed-[facility] MAPD [place] 07/31/22 03/19/24 Walter York MD [address]70 [place] [address] PCP - Attributed-Coventry [place] 06/02/24 Mike Yepez MD [address] [place] [address] 216 [place] [address] Gastroenterology 01/12/10 Daniella Davis MD 01/12/10 10/04/24 Rachna Amador, RN [address]70 [place] [address] Grain Merchandising Manager 06/22/12 12/14/14 Yusef Enciso MD [address]70 [place] [address] Ophthalmology 08/10/12 10/02/24 Charlotte Torres, WINSOME 1101 [facility] 300 [place] [address] Grain Merchandising ManagerAir Director 12/15/14 02/26/15 Paula Montelongo RN 1011 [facility] 300 [place] [address] Grain Merchandising ManagerAir Director 02/27/15 06/25/15 Nikita Bailey MD [facility]5 [place] [address] Otolaryngology 07/06/15 Elias Harris MD 1035 [facility] 500 [place] [address] Pulmonary Disease 03/18/17 Mike Ge MD [address] [place] [address] 425 [place] [address] General Surgery 03/31/17 07/18/19 Omar Painter MD [address] [place] [address] 425 [place] [address] Orthopedic Surgery 12/10/18 10/02/24 Hema Whaley MD 1027 [facility] 200 [place] [address] Cardiology 12/10/18 Gina Stacy RN Grain Merchandising ManagerAir Director 05/09/23 06/17/23 Dorinda Gill MSW Outpatient Stock Shaper Care Management 09/08/23 09/25/23 Vanita Gutierrez Care Coordination Specialist Care Management 10/03/23 10/03/23 Vanita Gutierrez Care Coordination Specialist Care Management 04/07/24 04/07/24 Anne Sharma MD [address] [address] Endocrinology 10/03/24 Justo Ferrer MD 1120 [place] [address] Orthopedic Surgery 10/03/24 Ansley Luciano, MARCO A [address] [facility] [place] [address] Show Horse Driver Show Horse Driver 10/03/24 documented as of this encounter
--- OUTSIDE RECORDS SUMMARY | 2024-12-05 00:20 | XMS_ITS | Encounter Summary ---
Author Organization [facility] Address [address] [facility] [place] [address] Care Team Providers Care Core Checker Name Role Phone Chi Goins MD Primary Care Provider [phone] Mike Yepez MD Unavailable Daniella Davis MD Unavailable Unav ailable Rachna Amador RN Unavailable [phone] Yusef Enciso MD Unavailable Unavailable Charlotte Torres RN Unavailable [phone] Paula Montelongo RN Unavailable [phone] Nikita Bailey MD Unavailable [phone] Chi Goins MD Unavailable [phone] Elias Harris MD Unavailable [phone] Mike Ge MD Unavailable [phone] Omar Painter MD Unavailable [phone] Hema Whaley MD Unavailable [phone] Chi Goins MD Unavailable +[phone] Walter York MD Primary Care Provider [phone] Walter York MD Primary Care Provider [phone] Walter York MD Unavailable [phone] Walter York MD Unavailable [phone] Gina Stacy RN Unavailable Dorinda Gill DISH ROOM WORKER Unavailable [phone] GutierrezMikeVanita M Unavailable [phone] Vanita Gutierrez Unavailable [phone] Walter York MD Unavailable [phone] Anne Sharma MD Unavailable Justo Ferrer MD Unavailable Ansley Luciano OD Unavailable [phone] Encounter Details Date Type Department Care Team (Late Contact Info) Description 06/17/2011 [facility] Outpatient Visit [facility] REHAB [address] [place] [address] Unknown, Provider Social History Tobacco Use Types Packs/Day Years Used Date Smoking Tobacco: Every Day Cigarettes 1 34 Smokeless Tobacco: Never Alcohol Use Standard Drinks/Week Comments No 0 (1 standard drink = 0.6 oz pur e alcohol) Comments No Sex and Gender Information Value Date Recorded Sex Assigned at Not on file Legal Sex Female 6:39 AM ASSOCIATE PRODUCT INTEGRITY ENGINEER Gender Identity Female 07/31/2022 8:08 AM ASSOCIATE PRODUCT INTEGRITY ENGINEER Sexual Orientation Not on file 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 encounter Plan of Treatment Upcoming Encounters Date Type Department Care Team (Late Contact Info) Description 12/07/2024 11:00 AM CDT Clinical Support [facility] [address] [place] [address], [address] [address] 02/03/2025 10:30 AM CDT Office Visit [facility] [address] [place] [address] [address] [place] [address] Hema Whaley MD [address] [place] [address] 200 [place], [place] [phone] 02/08/2025 12:40 PM CDT Office Visit [facility] - Endocrinology [address] [place] [address], [address] [place] [address] Lupillo Garcia SQUADRON WORKER-MANAGER MUTUAL FUND 1035 [facility], [address] [place] [address] 04/06/2025 9:20 AM ASSOCIATE PRODUCT INTEGRITY ENGINEER Office Visit [facility] - Internal Medicine [address] [facility] [place] [address] Laura Mckeon, SQUADRON WORKER-MANAGER MUTUAL FUND [address] [facility] [place] [address] 04/06/2025 1:40 PM ASSOCIATE PRODUCT INTEGRITY ENGINEER Office Visit [facility] - Pulmonology 1035 [facility], [address] [place] [address] Elias Harris MD 1035 [facility] [address] [place] [address] 04/22/2025 11:00 AM ASSOCIATE PRODUCT INTEGRITY ENGINEER Office Visit [facility] - Ophthalmology 1225 [facility], [place] [address] David Palumbo OD [address] [place] [phone] documented as of this encounter Visit Diagnoses Not on filedocumented in this encounter Care Teams Core Checker Relationship Specialty Start Date End Date Chi Goins MD PCP - General 09/19/08 04/30/20 Chi Goins MD [address]70 [place] [address] PCP - Attributed-Exclusive Choice 11/15/16 06/01/19 Chi Goins MD [address]70 [place] [address] PCP - Attributed-[facility] EHP STL 12/01/19 11/18/22 Walter York MD [address]70 [place] [address] PCP - General Family Medicine 05/01/20 09/17/21 Walter York MD [address] [place] [address] PCP - General Family Medicine 09/18/21 Walter York MD [address] [place] [address] PCP - Attributed-[facility] [place] 06/02/21 09/17/22 Walter York MD [address] [place] [address] PCP - Attributed-[facility] [place]D [place] 07/31/22 03/19/24 Walter York MD [address]70 [place] [address] PCP - Attributed-Coventry [place] 06/02/24 Mike Yepez MD [address] [place] [address] 216 [place] [address] Gastroenterology 01/12/10 Daniella Davis MD 01/12/10 10/04/24 Rachna Amador, RN [address]70 [place] [address] Gas Torch Solderer 06/22/12 12/14/14 Yusef Enciso MD [address]70 [place] [address] Ophthalmology 08/10/12 10/02/24 Charlotte Torres, WINSOME 1101 [facility] [address] [place] [address] Gas Torch SoldererSales Trainer 12/15/14 02/26/15 Paula Montelongo, WINSOME 1011 [facility] [address] [place] [address] Gas Torch SoldererSales Trainer 02/27/15 06/25/15 Nikita Bailey MD [facility]5 [place] [address] Otolaryngology 07/06/15 Elias Harris MD 1035 [facility] [address] [place] [address] Pulmonary Disease 03/18/17 Mike Ge MD [address] [place] [address] 425 [place] [address] General Surgery 03/31/17 07/18/19 Omar Painter MD [address] [place] [address] 425 [place] [address] Orthopedic Surgery 12/10/18 10/02/24 Hema Whaley MD 1027 [facility] 200 [place] [address] Cardiology 12/10/18 Gina Stacy RN Gas Torch SoldererSales Trainer 05/09/23 06/17/23 Dorinda Gill MSW Outpatient Vp Production Care Management 09/08/23 09/25/23 Vanita Gutierrez Care Coordination Specialist Care Management 10/03/23 10/03/23 Vanita Gutierrez Care Coordination Specialist Care Management 04/07/24 04/07/24 Anne Sharma MD [address] [address] Endocrinology 10/03/24 Justo Ferrer MD 1120 [place] [address] Orthopedic Surgery 10/03/24 Ansley Luciano, MARCO A 12[address] [facility] [place] [address] Beauty School Instructor Beauty School Instructor 10/03/24 documented as of this encounter
--- OUTSIDE RECORDS SUMMARY | 2024-12-05 00:20 | XMS_ITS | Data Portability ---
Author Organization [facility] Address [address] [place] [address] Assessment Encounter Date Assessment Date Assessment LastModified by Organization Details LastModified Time 06/15/2018 06/15/2018 Boots was seen at [facility] to be evaluated for an AFO. 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 She states she has fallen due to not being able to safely consistently lift her left foot due to weakness. The prefab afo will fit in her current shoes to provide sagital plane support to dorsiflex the left foot when ambulating. Thus assisting with safe ambulation Custom Device: Is a custom device needed for this patient? NO The patient will be seen when insurance approves and we get it in stock. Orthosis: authorization needed - to be fit after auth. Orthotic Goals: Choose all that apply Provide Support Immobilization Positioning Improve Gait Improve Posture Other (please specify): [email or web address] Not available 06/19/2018 15:47:14 Plan of Treatment Reminders Order Date Submit Date Provider Last Modified By Organization Details Last Modified Time Details Appointments None record ed. Lab None record ed. Referral None record ed. Procedures None record ed. Surgeries None record ed. Imaging None record ed. Medication Orders None record ed. Patient TargetsNo targets recorded. Patient Instructions Encounter Date Encounter Id Patient Instructions Last Modified By Organization Details Last Modified Time 06/15/2018 [id number] Ankle Foot Orthosis (AFO)* [email or web address] Not available 07/23/2018 13:58:58 ptnt was told i can not proceed until i receive a script from her doctor. She said she will get that. [email or web address] Not available 06/19/2018 15:48:15 ptnt has my card to get a hold of me when needed [email or web address] Not available 06/19/2018 15:48:36 Reason for Referral None Reported. Procedures Surgical History Date Name Laterality Status Provider Name and Address Organization Details Recorded Time 9 Lower Extemity Eval completed Nicole Daniel [facility] 06/19/2018 15:45:17 9 BI Procedures completed Nicole Daniel [facility] 06/19/2018 15:45:07 Imaging Results None recorded. Procedure Notes None recorded. Medical Equipment None Reported. Vitals Date Recorded Body height Body weight Provider Name and Address Organization Details Last Updated DateTime 06/15/2018 167.64 cm 94560.63 g [facility] 06/19/2018 12:21:02 Social History None recorded. Functional Status None recorded. Mental Status None recorded. Family History Nothing Reported. Medical History No medical history recorded. Gynecological HistoryNo gynecological history recorded. Obstetrics History GPAL:G 0 P 0 0 0 0 Past Encounters Encounter ID Performer Location Encounter Start Date Encounter Closed Date Diagnosis/Indication Diagnosis SNOMED-CT Code Diagnosis ICD10 Code Diagnosis Note [id number] [address] [place] [address] 06/17/2018 16:35:24 06/23/2018 14:30:15 Foot-drop [id number] M21.372 Health Concerns Section Related Observation LastModified by Organization Detai ls LastModified Time None Recorded Concern Status LastModified by Organization Details LastModified Time None Recorded Advance Directives Directive None Recorded Payers Insurance Date Sequence Insurance Name Policy Number Policy Tucker Covered Member ID Tucker Member ID Guarantor Name 07/14/2018 1 [employer] (EPO) [id number] Clothkaylin L Mik [id number] Clothkaylin Houser 07/03/2018 1 *SELF PAY* Cl shen Meijaon Notes Date Note Type Note Provider Name and Address Organization Details Recorded Time 06/15/2018 text/html BI HPIReported bypatient.patient is:Out Patient patient accompaniedpatient not accompanied Material AllergiesNo Current InjuryCurrent injury - explain Pain?no pain reported Numbness?decreased sensation on left Edema?no edema reported Weakness?weakness reported; poor dorsiflexionr Instability?instability reported; falling from drop foot Skin Problemsnone reported Diabetic (if lower extremity device)patient reports not diabetic Assistive Devices?ambulatory without assistive devices ptnt has two bulging lumbar disc and receiving PT Nicole siegel MA - NAT BRACE 06/19/2018 15:48:50 OBGyn Episode No OBEpisode recorded.
--- OUTSIDE RECORDS SUMMARY | 2024-12-05 00:20 | XMS_ITS | Encounter Summary ---
Author Organization [facility] Address [address] [place] [address] Care Team Providers Care Frame Stripper Name Role Phone Chi Goins MD Primary Care Provider [phone] Mike Yepez MD Unavailable Daniella Davis MD Unavailable Unav ailable Rachna Amador RN Unavailable [phone] Yusef Enciso MD Unavailable Unavailable Charlotte Torres RN Unavailable [phone] Paula Montelongo RN Unavailable [phone] Nikita Bailey MD Unavailable [phone] Chi Goins MD Unavailable [phone] Elias Harris MD Unavailable +[phone] Mike Ge MD Unavailable +[phone] Omar Painter MD Unavailable +[phone] Hema Whaley MD Unavailable +[phone] Chi Goins MD Unavailable [phone] Walter York MD Primary Care Provider [phone] Walter York MD Primary Care Provider [phone] Walter York MD Unavailable +[phone] Walter York MD Unavailable [phone] Gina Stacy RN Unavailable Dorinda Gill DIRECTOR OF INFECTION PREVENTION Unavailable [phone] GutierrezMikeVanita M Unavailable +[phone] Vanita Gutierrez Unavailable +[phone] Walter York MD Unavailable [phone] Anne Sharma MD Unavailable Justo Ferrer MD Unavailable Ansley Luciano OD Unavailable [phone] Encounter Details Date Type Department Care Team (Late Contact Info) Description 05/07/2010 [facility] Outpatient Visit [facility] REHAB [address] [place] [address] Unknown, Provider Social History Tobacco Use Types Packs/Day Years Used Date Smoking Tobacco: Every Day Cigarettes 1 34 Alcohol Use Standard Drinks/Week Comments No 0 (1 standard drink = 0.6 oz pur e alcohol) Comments No Sex and Gender Information Value Date Recorded Sex Assigned at Not on file Legal Sex Female 6:39 AM NURSE TRANSITIONAL Gender Identity Female 07/31/2022 8:08 AM NURSE TRANSITIONAL Sexual Orientation Not on file 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 encounter Plan of Treatment Upcoming Encounters Date Type Department Care Team (Late Contact Info) Description 12/07/2024 11:00 AM CDT Clinical Support [facility] Orthopedics [address] [facility], [facility] [address] [place] [address] 02/03/2025 10:30 AM CDT Office Visit [facility] [address] [place] [address] [address] [place] [address] Hema Whaley MD [address] [place] [address] [address] [place] [address] 02/08/2025 12:40 PM CDT Office Visit [facility] - Endocrinology [address] [place] [address], [address] [place] [address] Lupillo Garcia, DEPUTY GRAND JURY-SUPPLY OFFICER [address] [facility], [address] [place] [address] 04/06/2025 9:20 AM NURSE TRANSITIONAL Office Visit [facility] - Internal Medicine [address] [facility] [place] [address] Laura Mckeon, DEPUTY GRAND JURY-SUPPLY OFFICER [address] [facility] [place] [address] 04/06/2025 1:40 PM NURSE TRANSITIONAL Office Visit [facility] - Pulmonology [address] [facility], [address] [place] [address] Elias Harris MD [address] [facility] [address] [place] [address] 04/22/2025 11:00 AM NURSE TRANSITIONAL Office Visit [facility] - Ophthalmology [address] [facility], [place] [address] David Palumbo OD 1225 [place] [address] documented as of this encounter Visit Diagnoses Not on filedocumented in this encounter Care Teams Frame Stripper Relationship Specialty Start Date End Date Chi Goins MD PCP - General 09/19/08 04/30/20 Chi Goins MD [address]70 [place] [address] PCP - Attributed-Exclusive Choice 11/15/16 06/01/19 Chi Goins MD [address] [place] [address] PCP - Attributed-[facility] EHP STL 12/01/19 11/18/22 Walter York MD [address]70 [place] [address] PCP - General Family Medicine 05/01/20 09/17/21 Walter York MD [address] [place] [address] PCP - General Family Medicine 09/18/21 Walter York MD [address] [place] [address] PCP - Attributed-[facility] [place] 06/02/21 09/17/22 Walter York MD [address] [place] [address] PCP - Attributed-[facility] MAPD [place] 07/31/22 03/19/24 Walter York MD [address] [place] [address] PCP - Attributed-Coventry [place] 06/02/24 Mike Yepez MD [address] [place] [address] 216 [place] [address] Gastroenterology 01/12/10 Daniella Davis MD 01/12/10 10/04/24 Rachna Amador, RN [address]70 [place] [address] Body Stylist 06/22/12 12/14/14 Yusef Enciso MD [address]70 [place] [address] Ophthalmology 08/10/12 10/02/24 Charlotte Torres, WINSOME 1101 [facility] 300 [place] [address] Body StylistPortrait Painter 12/15/14 02/26/15 Paula Montelongo, WINSOME [address] [facility] 300 [place] [address] Body StylistPortrait Painter 02/27/15 06/25/15 Nikita Bailey MD [facility]5 [place] [address] Otolaryngology 07/06/15 Elias Harris MD [address] [place] [address] 500 [place] [address] Pulmonary Disease 03/18/17 Mike Ge MD [address] [place] [address] 425 [place] [address] General Surgery 03/31/17 07/18/19 Omar Painter MD [address] [place] [address] 425 [place] [address] Orthopedic Surgery 12/10/18 10/02/24 Hema Whaley MD 1027 [facility] 200 [place] [address] Cardiology 12/10/18 Gina Stacy RN Body StylistPortrait Painter 05/09/23 06/17/23 Dorinda Gill MSW Outpatient Inside Sales Supervisor Care Management 09/08/23 09/25/23 Vanita Gutierrez Care Coordination Specialist Care Management 10/03/23 10/03/23 Vanita Gutierrez Care Coordination Specialist Care Management 04/07/24 04/07/24 Anne Sharma MD [address] [phone] Endocrinology 10/03/24 Justo Ferrer MD [address] [place] [address] Orthopedic Surgery 10/03/24 Ansley Luciano, MARCO A [address] [facility] [place] [address] Brand Designer Brand Designer 10/03/24 documented as of this encounter
--- OUTSIDE RECORDS SUMMARY | 2024-12-05 00:20 | XMS_ITS | Encounter Summary ---
Author Organization [facility] Address [address] [place] [address] Care Team Providers Care Direct Response Consultant Name Role Phone Chi Goins MD Primary Care Provider [phone] Mike Yepez MD Unavailable Daniella Davis MD Unavailable Unav ailable Rachna Amador RN Unavailable [phone] Yusef Enciso MD Unavailable Unavailable Charlotte Torres RN Unavailable [phone] Paula Montelongo RN Unavailable [phone] Nikita Bailey MD Unavailable [phone] Chi Goins MD Unavailable [phone] Elias Harris MD Unavailable [phone] Mike Ge MD Unavailable [phone] Omar Painter MD Unavailable [phone] Hema Whaley MD Unavailable [phone] Chi Goins MD Unavailable [phone] Walter York MD Primary Care Provider [phone] Walter York MD Primary Care Provider [phone] Walter York MD Unavailable [phone] Walter York MD Unavailable [phone] Gina Stacy RN Unavailable Dorinda Gill WELT SLASHER Unavailable [phone] GutierrezMike mosqueraette M Unavailable [phone] Matt Vanita M Unavailable [phone] Walter York MD Unavailable [phone] Anne Sharma MD Unavailable Justo Ferrer MD Unavailable Ansley Luciano OD Unavailable Encounter Details Date Type Department Care Team (Late Contact Info) Description 11/20/2012 [facility] Outpatient Visit [facility] [address] [place] [address] Unknown, Provider Social History Tobacco Use Types Packs/Day Years Used Date Smoking Tobacco: Every Day Cigarettes 1 34 Smokeless Tobacco: Never Alcohol Use Standard Drinks/Week Comments Yes 0 (1 standard drink = 0.6 oz pur e alcohol) rarely Comments No Sex and Gender Information Value Date Recorded Sex Assigned at Not on file Legal Sex Female 6:39 AM ENGINEERING TECHNICAL SPECIALIST Gender Identity Female 07/31/2022 8:08 AM ENGINEERING TECHNICAL SPECIALIST Sexual Orientation Not on file 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 encounter Plan of Treatment Upcoming Encounters Date Type Department Care Team (Late Contact Info) Description 12/07/2024 11:00 AM CDT Clinical Support [facility] Orthopedics [address] [facility], [address] [address] 02/03/2025 10:30 AM CDT Office Visit [facility] V[facility] Care [address] [place] [address] [address] [place] [address] Hema Whaley MD [address] [place] [address] [address] [place], [place] [address] 02/08/2025 12:40 PM CDT Office Visit [facility] - Endocrinology [address] [place] [address], [address] [place] [address] Lupillo Garcia TOOL AND PRODUCTION PLANNER-JEWEL BEARING DRILLER 1035 [facility], [address] [place] [address] 04/06/2025 9:20 AM ENGINEERING TECHNICAL SPECIALIST Office Visit [facility] - Internal Medicine [address] [facility] [place] [address] Laura Mckeon, TOOL AND PRODUCTION PLANNER-JEWEL BEARING DRILLER [address]70 [facility] [place] [address] 04/06/2025 1:40 PM ENGINEERING TECHNICAL SPECIALIST Office Visit [facility] - Pulmonology 1035 [facility], [address] [place] [address] Elias Harris MD 1035 [facility] [address] [place] [address] 04/22/2025 11:00 AM ENGINEERING TECHNICAL SPECIALIST Office Visit [facility] - Ophthalmology 1225 [facility], [place] [address] David Palumbo OD [address] [place] [phone] documented as of this encounter Visit Diagnoses Not on filedocumented in this encounter Care Teams Direct Response Consultant Relationship Specialty Start Date End Date Chi Goins MD PCP - General 09/19/08 04/30/20 Chi Goins MD [address]70 [place] [address] PCP - Attributed-Exclusive Choice 11/15/16 06/01/19 Chi Goins MD [address]70 [place] [address] PCP - Attributed-[facility] EHP STL 12/01/19 11/18/22 Walter York MD [address]70 [place] [address] PCP - General Family Medicine 05/01/20 09/17/21 Walter York MD [address]70 [place] [address] PCP - General Family Medicine 09/18/21 Walter York MD [address]70 [place] [address] PCP - Attributed-[facility] [place] 06/02/21 09/17/22 Walter York MD [address]70 [place] [address] PCP - Attributed-[facility] MAPD [place] 07/31/22 03/19/24 Walter York MD [address]70 [place] [address] PCP - Attributed-Coventry MA 06/02/24 Mike Yepez MD [address] [place] [address] 216 [place] [address] Gastroenterology 01/12/10 Daniella Davis MD 01/12/10 10/04/24 Rachna Amador, RN [address]70 [place] [address] Commercial Credit Reviewer 06/22/12 12/14/14 Yusef Enciso MD [address]70 [place] [address] Ophthalmology 08/10/12 10/02/24 Charlotte Torres, WINSOME 1101 [facility] [address] [place] [address] Commercial Credit ReviewerSide Trimmer 12/15/14 02/26/15 Paula Montelongo RN 1011 [facility] 300 [place] [address] Commercial Credit ReviewerSide Trimmer 02/27/15 06/25/15 Nikita Bailey MD [facility]5 [place] [address] Otolaryngology 07/06/15 Elias Harris MD 1035 [facility] 500 [place] [address] Pulmonary Disease 03/18/17 Mike Ge MD [address] [place] [address] 425 [place] [address] General Surgery 03/31/17 07/18/19 Omar Painter MD [address] [place] [address] 425 [place] [address] Orthopedic Surgery 12/10/18 10/02/24 Hema Whaley MD 1027 [facility] 200 [place] [address] Cardiology 12/10/18 Gina Stacy RN Commercial Credit ReviewerSide Trimmer 05/09/23 06/17/23 Dorinda Gill MSW Outpatient Heel Caser Care Management 09/08/23 09/25/23 Vanita Gutierrez Care Coordination Specialist Care Management 10/03/23 10/03/23 Vanita Gutierrez Care Coordination Specialist Care Management 04/07/24 04/07/24 Anne Sharma MD [address] [address] Endocrinology 10/03/24 Justo Ferrer MD 1120 [place] [address] Orthopedic Surgery 10/03/24 Ansley Luciano, MARCO A 12[address] [facility] DEPT [place] [address] Full Time Babysitter Full Time Babysitter 10/03/24 documented as of this encounter
--- NOTE | 2024-12-05 00:38 | ECG_ITS ---
Test Date: 2024-12-05 01:13:15 Measurements Intervals [place] Rate: 85 P: 0 DC: 0 QRS: 0 QRSD: 89 T: 47 QT: 350 QTc: 418 Interpretive Statements Sinus rhythm with premature atrial beats ABNORMAL RHYTHM ECG No previous ECG available for comparison Electronically Signed On 12-05-2024 13:48:15 CDT by Keaton Perry M.D.
[2024-12-05 01:11] LABS: Hematocrit 38.8 % (37.0-47.0); Hemoglobin 12.8 g/dL (12.0-15.0); Immature Granulocyte Percent A 0.4 % (0-0.5); Lymphocytes Absolute Auto 1.84 K/mm3 (0.9-3.2); Mean Corpuscular HGB Conc 33.0 g/dl (32-36); Mean Corpuscular Hemoglobin 27.8 pg (26-34); Mean Corpuscular Volume 84.3 fl (80-100); Nucleated Red Blood Cells Absolute Auto 0.000 K/mm3 (0.0-0.012); Nucleated Red Blood Cells Perc 0.0 % (0.0-0.2); Platelet Count Result 171 k/mm3 (150-375); Red Blood Count 4.60 M/mm3 (4.2-5.4); White Blood Count 11.5 K/mm3 (4.5-10.0)
[2024-12-05 01:15] LABS: Add Urine Microscopic? YES; Appearance Urine Clear (Clear); Glucose Urine UA 3+ mg/dL (Negative); Leukocyte Esterase Ur Negative LEU/UL (Negative); Nitrate Urine Negative (Negative); Non Pathogenic Casts 0-2; Specific Grav Ur 1.023 (1.001-1.035)
[2024-12-05 01:18] LABS: Alanine Aminotransferase 29 U/L (6-35); Albumin Level 4.5 g/dL (3.5-5.1); Alkaline Phosphatase 118 U/L (38-126); Anion Gap 13 mmol/L (4-12); Aspartate Amino Transferase 42 U/L (14-36); Bilirubin,Total 0.6 mg/dL (0.2-1.3); Blood Urea Nitrogen 23 mg/dL (7-17); Calcium 9.2 mg/dL (8.4-10.2); Carbon Dioxide 21 mmol/L (22-30); Chloride 95 mmol/L (98-107); Estimated CRCL calculation 32 ml/min; Estimated Glomerular Filt Rate 41; Glucose 181 mg/dL (65-110); Potassium 4.2 mmol/L (3.4-5.0); Sodium 129 mmol/L (137-145); Total Protein 8.4 g/dL (6.3-8.2)
[2024-12-05 01:30] LABS: Troponin I < 0.012 ng/mL (0.000-0.034)
[2024-12-05 01:46] LABS: Influenza A QL RT-PCR Negative (Negative); Influenza B QL RT-PCR Negative (Negative); RSV RNA, RT-PCR Negative (Negative); SARS-CoV-2 RNA PCR Positive (Negative)
[2024-12-05] MEDS: dexAMETHasone SOD PHOS INJ 10 MG/ML 1 ML VIAL 6 MG IV PUSH (02:05)
[2024-12-05 02:06] LABS: Strep Group A RT-PCR NOT DETECTED (Negative)
[2024-12-05] MEDS: ACETAMINOPHEN 500 MG TABLET 1000 MG PO (02:06)
--- OUTSIDE RECORDS SUMMARY | 2024-12-05 02:07 | XMS_ITS | Encounter Summary ---
Author Organization [facility] Address [address] [place] [address] Care Team Providers Care Corn Chip Maker Name Role Phone Chi Goins MD Primary Care Provider [phone] Mike Yepez MD Unavailable Daniella Davis MD Unavailable Unav ailable Rachna Amador RN Unavailable [phone] Yusef Enciso MD Unavailable Unavailable Charlotte Torres RN Unavailable [phone] Paula Montelongo RN Unavailable [phone] Nikita Bailey MD Unavailable [phone] Chi Goins MD Unavailable [phone] Elias Harris MD Unavailable [phone] Mike Ge MD Unavailable [phone] Omar Painter MD Unavailable [phone] Hema Whaley MD Unavailable [phone] Chi Goins MD Unavailable [phone] Walter York MD Primary Care Provider [phone] Walter York MD Primary Care Provider [phone] Walter York MD Unavailable [phone] Walter York MD Unavailable [phone] Gina Stacy RN Unavailable Dorinda Gill MAINTENANCE MAN Unavailable [phone] GutierrezMikeVanita M Unavailable +[phone] Vanita Gutierrez Unavailable [phone] Walter York MD Unavailable [phone] Anne Sharma MD Unavailable Justo Ferrer MD Unavailable Ansley Luciano OD Unavailable [phone] Encounter Details Date Type Department Care Team (Late Contact Info) Description 05/17/2011 [facility] Outpatient Visit [facility] [address] [place] [address] Unknown, Provider Social History Tobacco Use Types Packs/Day Years Used Date Smoking Tobacco: Every Day Cigarettes 1 34 Smokeless Tobacco: Never Alcohol Use Standard Drinks/Week Comments No 0 (1 standard drink = 0.6 oz pur e alcohol) Comments No Sex and Gender Information Value Date Recorded Sex Assigned at Not on file Legal Sex Female 6:39 AM ASSEMBLER RADIO AND ELECTRICAL Gender Identity Female 07/31/2022 8:08 AM ASSEMBLER RADIO AND ELECTRICAL Sexual Orientation Not on file 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 Orthopedics [address] [place] [address], [address] [address] 02/03/2025 10:30 AM CDT Office Visit [facility] Heart & Vascular Care [address] [place] [address] [address] [place] [address] Hema Whaley MD [address] [place] [address] 200 [place], [place] [address] 02/08/2025 12:40 PM CDT Office Visit [facility] Group - Endocrinology [address] [place] [address], [address] [place] [address] Lupillo Garcia COUNTER WAITRESS/WAITER-MANAGER COMPLIANCE 1035 [facility], [address] [place] [address] 04/06/2025 9:20 AM ASSEMBLER RADIO AND ELECTRICAL Office Visit [facility] Medical [facility] - Internal Medicine [address] [facility] [place] [address] Laura Mckeon, COUNTER WAITRESS/WAITER-MANAGER COMPLIANCE [address] [facility] [place] [address] 04/06/2025 1:40 PM ASSEMBLER RADIO AND ELECTRICAL Office Visit [facility] - Pulmonology 1035 [facility], [address] [place] [address] Elias Harris MD 1035 [facility] [address] [place] [address] 04/22/2025 11:00 AM ASSEMBLER RADIO AND ELECTRICAL Office Visit [facility] - Ophthalmology 1225 [facility], [place] [address] David Palumbo OD [address] [place] [phone] documented as of this encounter Visit Diagnoses Not on filedocumented in this encounter Care Teams Corn Chip Maker Relationship Specialty Start Date End Date Chi Goins MD PCP - General 09/19/08 04/30/20 Chi Goins MD [address]70 [place] [address] PCP - Attributed-Exclusive Choice 11/15/16 06/01/19 Chi Goins MD [address] [place] [address] PCP - Attributed-[facility] EHP STL 12/01/19 11/18/22 Walter York MD [address] [place] [address] PCP - General Family Medicine 05/01/20 09/17/21 Walter York MD [address] [place] [address] PCP - General Family Medicine 09/18/21 Walter York MD [address] [place] [address] PCP - Attributed-[facility] [place] 06/02/21 09/17/22 Walter York MD [address] [place] [address] PCP - Attributed-[facility] MAPD [place] 07/31/22 03/19/24 Walter York MD [address] [place] [address] PCP - Attributed-Coventry MA 06/02/24 Mike Yepez MD [address] [place] [address] 216 [place] [address] Gastroenterology 01/12/10 Daniella Davis MD 01/12/10 10/04/24 Rachna Amador, RN [address]70 [place] [address] Turbo Operator 06/22/12 12/14/14 Yusef Encsio MD [address]70 [place] [address] Ophthalmology 08/10/12 10/02/24 Charlotte Torres, WINSOME 1101 [facility] [address] [place] [address] Turbo OperatorTruck Dispatcher 12/15/14 02/26/15 Paula Montelongo, WINSOME 1011 [facility] [address] [place] [address] Turbo OperatorTruck Dispatcher 02/27/15 06/25/15 Nikita Bailey MD [facility]5 [place] [address] Otolaryngology 07/06/15 Elias Harris MD 1035 [facility] [address] [place] [address] Pulmonary Disease 03/18/17 Mike Ge MD [address] [place] [address] 425 [place] [address] General Surgery 03/31/17 07/18/19 Omar Painter MD [address] [place] [address] 425 [place] [address] Orthopedic Surgery 12/10/18 10/02/24 Hema Whaley MD 1027 [facility] 200 [place] [address] Cardiology 12/10/18 Gina Stacy RN Turbo OperatorTruck Dispatcher 05/09/23 06/17/23 Dorinda Gill MSW Outpatient Barrel Ribs Solderer Care Management 09/08/23 09/25/23 Vanita Gutierrez Care Coordination Specialist Care Management 10/03/23 10/03/23 Vanita Gutierrez Care Coordination Specialist Care Management 04/07/24 04/07/24 Anne Sharma MD [address] [address] Endocrinology 10/03/24 Justo Ferrer MD 1120 [place] [address] Orthopedic Surgery 10/03/24 Ansley Luciano, MARCO A 1225 S [facility] [place] [address] Vineyard Supervisor Vineyard Supervisor 10/03/24 documented as of this encounter
--- OUTSIDE RECORDS SUMMARY | 2024-12-05 02:07 | XMS_ITS | Clinical Summary ---
Author Organization [facility] Address [address] [place] [phone] Phone Care Team Providers Care Manager Business Operations Name Role Phone Unavailable Primary Care Provider [...]
--- OUTSIDE RECORDS SUMMARY | 2024-12-05 02:07 | XMS_ITS | Encounter Summary ---
Author Organization [facility] Address [address] [place] [address] Care Team Providers Care Industrial Health Engineer Name Role Phone Chi Goins MD Primary Care Provider [phone] Mike Yepez MD Unavailable Daniella Davis MD Unavailable Unav ailable Rachna Amador RN Unavailable Yusef Enciso MD Unavailable Unavailable Charlotte Torres RN Unavailable [phone] Paula Montelongo RN Unavailable [phone] Nikita Bailey MD Unavailable [phone] Chi Goins MD Unavailable [phone] Elias Harris MD Unavailable +[phone] Mike Ge MD Unavailable [phone] Omar Painter MD Unavailable [phone] Hema Whaley MD Unavailable +[phone] Chi Goins MD Unavailable +[phone] Walter York MD Primary Care Provider [phone] Walter York MD Primary Care Provider [phone] Walter York MD Unavailable [phone] Walter York MD Unavailable [phone] Gina Stacy RN Unavailable Dorinda Gill AGRICULTURAL AND FORESTRY SUPERVISOR Unavailable [phone] GutierrezMikeVanita M Unavailable +[phone] Vanita Gutierrez Unavailable +[phone] Walter York MD Unavailable [phone] Anne Sharma MD Unavailable Justo Ferrer MD Unavailable Ansley Luciano OD Unavailable [phone] Encounter Details Date Type Department Care Team (Late Contact Info) Description 05/01/2011 [facility] [address] [place] [address] Unknown, Provider Social History Tobacco Use Types Packs/Day Years Used Date Smoking Tobacco: Every Day Cigarettes 1 34 Smokeless Tobacco: Never Alcohol Use Standard Drinks/Week Comments No 0 (1 standard drink = 0.6 oz pur e alcohol) Comments No Sex and Gender Information Value Date Recorded Sex Assigned at Not on file Legal Sex Female 6:39 AM MAORI LIAISON ADVISER Gender Identity Female 07/31/2022 8:08 AM MAORI LIAISON ADVISER Sexual Orientation Not on file 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 encounter Plan of Treatment Upcoming Encounters Date Type Department Care Team (Late Contact Info) Description 12/07/2024 11:00 AM CDT Clinical Support [facility] Orthopedics [address] [facility], [address] [address] 02/03/2025 10:30 AM CDT Office Visit [facility] Heart & Vascular Care [address] [place] [address] [address] [place] [address] Hema Whaley MD [address] [place] [address] 200 [place], [place] [address] 02/08/2025 12:40 PM CDT Office Visit [facility] - Endocrinology [address] [place] [address], [address] [place] [address] Lupillo Garcia SCREEN HANDLER-STAVE CUTTING SUPERVISOR 1035 [facility], [address] [place] [address] 04/06/2025 9:20 AM MAORI LIAISON ADVISER Office Visit [facility] Medical [facility] - Internal Medicine [address] [facility] [place] [address] Laura Mckeon, SCREEN HANDLER-STAVE CUTTING SUPERVISOR [address]70 [facility] [place] [address] 04/06/2025 1:40 PM MAORI LIAISON ADVISER Office Visit [facility] - Pulmonology 1035 [facility], [address] [place] [address] Elias Harris MD 1035 [facility] [address] [place] [address] 04/22/2025 11:00 AM MAORI LIAISON ADVISER Office Visit [facility] - Ophthalmology 1225 [facility], [place] [address] David Palumbo OD [address] [place] [phone] documented as of this encounter Visit Diagnoses Not on filedocumented in this encounter Care Teams Industrial Health Engineer Relationship Specialty Start Date End Date Chi Goins MD PCP - General 09/19/08 04/30/20 Chi Goins MD [address]70 [place] [address] PCP - Attributed-Exclusive Choice 11/15/16 06/01/19 Chi Goins MD [address]70 [place] [address] PCP - Attributed-[facility] EHP STL 12/01/19 11/18/22 Walter York MD [address]70 [place] [address] PCP - General Family Medicine 05/01/20 09/17/21 Walter York MD [address]70 [place] [address] PCP - General Family Medicine 09/18/21 Walter York MD [address]70 [place] [address] PCP - Attributed-[facility] [place] 06/02/21 09/17/22 Walter York MD [address]70 [place] [address] PCP - Attributed-[facility] MAPD [place] 07/31/22 03/19/24 Walter York MD [address]70 [place] [address] PCP - Attributed-[facility] [place] 06/02/24 Mike Yepez MD [address] [place] [address] 216 [place] [address] Gastroenterology 01/12/10 Daniella Davis MD 01/12/10 10/04/24 Rachna Amador, RN [address]70 [place] [address] Gas Mask Assembler 06/22/12 12/14/14 Yusef Enciso MD [address]70 [place] [address] Ophthalmology 08/10/12 10/02/24 Charlotte Torres, WINSOME 1101 [facility] [address] [place] [address] Gas Mask AssemblerBandoleer Packer 12/15/14 02/26/15 Paula Montelongo, WINSOME 1011 [facility] [address] [place] [address] Gas Mask AssemblerBandoleer Packer 02/27/15 06/25/15 Nikita Bailey MD [facility]5 [place] [address] Otolaryngology 07/06/15 Elias Harris MD 1035 [facility] [address] [place] [address] Pulmonary Disease 03/18/17 Mike Ge MD [address] [place] [address] 425 [place] [address] General Surgery 03/31/17 07/18/19 Omar Painter MD [address] [place] [address] 425 [place] [address] Orthopedic Surgery 12/10/18 10/02/24 Hema Whaley MD 1027 [facility] 200 [place] [address] Cardiology 12/10/18 Gina Stacy RN Gas Mask AssemblerBandoleer Packer 05/09/23 06/17/23 Dorinda Gill MSW Outpatient Educational Interpreter Care Management 09/08/23 09/25/23 Vanita Gutierrez Care Coordination Specialist Care Management 10/03/23 10/03/23 Vanita Gutierrez Care Coordination Specialist Care Management 04/07/24 04/07/24 Anne Sharma MD [address] [address] Endocrinology 10/03/24 Justo Ferrer MD 1120 [place] [address] Orthopedic Surgery 10/03/24 Ansley Luciano, MARCO A 1225 [address] [facility] DEPT [place] [address] Field Tech Field Tech 10/03/24 documented as of this encounter
--- OUTSIDE RECORDS SUMMARY | 2024-12-05 02:07 | XMS_ITS | Encounter Summary ---
Author Organization [facility] Address [address] [place] [address] Care Team Providers Care Best Second Jobs Name Role Phone Chi Goins MD Primary Care Provider [phone] Mike Yepez MD Unavailable Daniella Davis MD Unavailable Unav ailable Rachna Amador RN Unavailable [phone] Yusef Enciso MD Unavailable Unavailable Charlotte Torres RN Unavailable [phone] Paula Montelongo RN Unavailable [phone] Nikita Bailey MD Unavailable [phone] Chi Goins MD Unavailable [phone] Elias Harris MD Unavailable [phone] Mike Ge MD Unavailable [phone] Omar Painter MD Unavailable [phone] Hema Whaley MD Unavailable [phone] Chi Goins MD Unavailable +[phone] Walter York MD Primary Care Provider [phone] Walter York MD Primary Care Provider [phone] Walter York MD Unavailable [phone] Walter York MD Unavailable [phone] Gina Stacy RN Unavailable Dorinda Gill WELT MAKER Unavailable [phone] GutierrezMike mosqueraette M Unavailable [phone] Matt Vanita M Unavailable [phone] Walter York MD Unavailable [phone] Anne Sharma MD Unavailable Justo Ferrer MD Unavailable [phone] Ansley Luciano OD Unavailable [phone] Encounter Details Date Type Department Care Team (Late Contact Info) Description 11/20/2012 [facility] Outpatient Visit [facility] [address] [place] [address] Unknown, Provider Social History Tobacco Use Types Packs/Day Years Used Date Smoking Tobacco: Every Day Cigarettes 1 34 Smokeless Tobacco: Never Alcohol Use Standard Drinks/Week Comments Yes 0 (1 standard drink = 0.6 oz pur e alcohol) rarely Comments No Sex and Gender Information Value Date Recorded Sex Assigned at Not on file Legal Sex Female 6:39 AM WOOL PULLER Gender Identity Female 07/31/2022 8:08 AM WOOL PULLER Sexual Orientation Not on file 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 encounter Plan of Treatment Upcoming Encounters Date Type Department Care Team (Late Contact Info) Description 12/07/2024 11:00 AM CDT Clinical Support [facility] [address] [facility], [address] [address] 02/03/2025 10:30 AM CDT Office Visit [facility] Heart [facility] Vascular Care [address] [place] [address] [address] [place] [address] Hema Whaley MD [address] [place] [address] [address] [place], [place] [address] 02/08/2025 12:40 PM CDT Office Visit [facility] - Endocrinology [address] [place] [address], [address] [place] [address] Lupillo Garcia CHEMISTRY TECHNICAL OFFICER-INSTALL AND REPAIR TECHNICIAN 1035 [facility], [address] [place] [address] 04/06/2025 9:20 AM WOOL PULLER Office Visit [facility] Medical [facility] - Internal Medicine [address] [facility] [place] [address] Laura Mckeon, CHEMISTRY TECHNICAL OFFICER-INSTALL AND REPAIR TECHNICIAN 8670 [facility] [place] [address] 04/06/2025 1:40 PM WOOL PULLER Office Visit [facility] - Pulmonology 1035 [facility], [address] [place] [address] Elias Harris MD 1035 [facility] [address] [place] [address] 04/22/2025 11:00 AM WOOL PULLER Office Visit [facility] - Ophthalmology 1225 [facility], [place] [address] David Palumbo OD [address] [place] [phone] documented as of this encounter Visit Diagnoses Not on filedocumented in this encounter Care Teams Best Second Jobs Relationship Specialty Start Date End Date Chi Goins MD PCP - General 09/19/08 04/30/20 Chi Goins MD [address]70 [place] [address] PCP - Attributed-Exclusive Choice 11/15/16 06/01/19 Chi Goins MD [address]70 [place] [address] PCP - Attributed-[facility] EHP STL 12/01/19 11/18/22 Walter York MD [address]70 [place] [address] PCP - General Family Medicine 05/01/20 09/17/21 Walter York MD [address] [place] [address] PCP - General Family Medicine 09/18/21 Walter York MD [address] [place] [address] PCP - Attributed-[facility] [place] 06/02/21 09/17/22 Walter York MD [address] [place] [address] PCP - Attributed-[facility] MAPD [place] 07/31/22 03/19/24 Walter York MD [address] [place] [address] PCP - Attributed-Coventry [place] 06/02/24 Mike Yepez MD [address] [place] [address] 216 [place] [address] Gastroenterology 01/12/10 Daniella Davis MD 01/12/10 10/04/24 Rachna Amador, RN [address] [place] [address] Rigging Man 06/22/12 12/14/14 Yusef Enciso MD [address]70 [place] [address] Ophthalmology 08/10/12 10/02/24 Charlotte Torres, WINSOME 1101 [facility] [address] [place] [address] Rigging ManSocially Responsible Investment Adviser 12/15/14 02/26/15 Paula Montelongo RN 1011 [facility] 300 [place] [address] Rigging ManSocially Responsible Investment Adviser 02/27/15 06/25/15 Nikita Bailey MD [facility]5 [place] [address] Otolaryngology 07/06/15 Elias Harris MD 1035 [facility] 500 [place] [address] Pulmonary Disease 03/18/17 Mike Ge MD [address] [place] [address] 425 [place] [address] General Surgery 03/31/17 07/18/19 Omar Painter MD [address] [place] [address] 425 [place] [address] Orthopedic Surgery 12/10/18 10/02/24 Hema Whaley MD 1027 [facility] 200 [place] [address] Cardiology 12/10/18 Gina Stacy RN Rigging ManSocially Responsible Investment Adviser 05/09/23 06/17/23 Dorinda Gill MSW Outpatient Processing Engineer Care Management 09/08/23 09/25/23 Vanita Gutierrez Care Coordination Specialist Care Management 10/03/23 10/03/23 Vanita Gutierrez Care Coordination Specialist Care Management 04/07/24 04/07/24 Anne Sharma MD [address] [address] Endocrinology 10/03/24 Justo Ferrer MD 1120 [place] [address] Orthopedic Surgery 10/03/24 Ansley Luciano, MARCO A 1225 S [facility] [place] [phone] Multiple Games Dealer Multiple Games Dealer 10/03/24 documented as of this encounter
--- OUTSIDE RECORDS SUMMARY | 2024-12-05 02:07 | XMS_ITS | Encounter Summary ---
Author Organization [facility] Address [address] [place] [address] Care Team Providers Care Dredge Mechanic Name Role Phone Chi Goins MD Primary Care Provider [phone] Mike Yepez MD Unavailable Daniella Davis MD Unavailable Unav ailable Rachna Amador RN Unavailable [phone] Yusef Enciso MD Unavailable Unavailable Charlotte Torres RN Unavailable [phone] Paula Montelongo RN Unavailable [phone] Nikita Bailey MD Unavailable [phone] Chi Goins MD Unavailable [phone] Elias Harris MD Unavailable +[phone] Mike Ge MD Unavailable [phone] Omar Painter MD Unavailable Hema Whaley MD Unavailable +[phone] Chi Goins MD Unavailable [phone] Walter York MD Primary Care Provider [phone] Walter York MD Primary Care Provider [phone] Walter York MD Unavailable [phone] Walter York MD Unavailable Gina Stacy RN Unavailable Dorinda Gill MOISTURE METER OPERATOR Unavailable [phone] GutierrezMikeVanita M Unavailable [phone] Vanita Gutierrez Unavailable Walter York MD Unavailable [phone] Anne Sharma MD Unavailable Justo Ferrer MD Unavailable Ansley Luciano OD Unavailable [phone] Encounter Details Date Type Department Care Team (Late Contact Info) Description 06/17/2011 [facility] Outpatient Visit [facility] [address] [place] [address] Unknown, Provider Social History Tobacco Use Types Packs/Day Years Used Date Smoking Tobacco: Every Day Cigarettes 1 34 Smokeless Tobacco: Never Alcohol Use Standard Drinks/Week Comments No 0 (1 standard drink = 0.6 oz pur e alcohol) Comments No Sex and Gender Information Value Date Recorded Sex Assigned at Not on file Legal Sex Female 6:39 AM ECONOMICS DEPARTMENT CHAIR Gender Identity Female 07/31/2022 8:08 AM ECONOMICS DEPARTMENT CHAIR Sexual Orientation Not on file 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 encounter Plan of Treatment Upcoming Encounters Date Type Department Care Team (Late Contact Info) Description 12/07/2024 11:00 AM CDT Clinical Support [facility] Orthopedics [address] [place] [address], [address] [address] 02/03/2025 10:30 AM CDT Office Visit [facility] Heart & Vascular Care [address] [place] [address] [address] [place] [address] Hema Whaley MD [address] [place] [address] 200 [place], [place] [phone] 02/08/2025 12:40 PM CDT Office Visit [facility] Group - Endocrinology [address] [place] [address], [address] [place] [address] Lupillo Garcia LICENSED APPRAISER-INSURANCE POLICY ISSUE CLERK 1035 [facility], [address] [place] [address] 04/06/2025 9:20 AM ECONOMICS DEPARTMENT CHAIR Office Visit [facility] Medical [facility] - Internal Medicine 8670 [facility] [place] [address] Laura Mckeon, LICENSED APPRAISER-INSURANCE POLICY ISSUE CLERK 8670 [facility] [place] [address] 04/06/2025 1:40 PM ECONOMICS DEPARTMENT CHAIR Office Visit [facility] - Pulmonology 1035 [facility], [address] [place] [address] Elias Harris MD 1035 [facility] [address] [place] [address] 04/22/2025 11:00 AM ECONOMICS DEPARTMENT CHAIR Office Visit [facility] - Ophthalmology 1225 [facility], [place] [address] David Palumbo OD [address] [place] [phone] documented as of this encounter Visit Diagnoses Not on filedocumented in this encounter Care Teams Dredge Mechanic Relationship Specialty Start Date End Date Chi Goins MD PCP - General 09/19/08 04/30/20 Chi Goins MD [address]70 [place] [address] PCP - Attributed-Exclusive Choice 11/15/16 06/01/19 Chi Goins MD [address]70 [place] [address] PCP - Attributed-[facility] EHP STL 12/01/19 11/18/22 Walter York MD [address]70 [place] [address] PCP - General Family Medicine 05/01/20 09/17/21 Walter York MD [address]70 [place] [address] PCP - General Family Medicine 09/18/21 Walter York MD [address]70 [place] [address] PCP - Attributed-[facility] [place] 06/02/21 09/17/22 Walter York MD [address]70 [place] [address] PCP - Attributed-[facility] MAPD [place] 07/31/22 03/19/24 Walter York MD [address]70 [place] [address] PCP - Attributed-Coventry [place] 06/02/24 Mike Yepez MD [address] [place] [address] 216 [place] [address] Gastroenterology 01/12/10 Daniella Davis MD 01/12/10 10/04/24 Rachna Amador, RN [address]70 [place] [address] C Web Developer 06/22/12 12/14/14 Yusef Enciso MD 8670 [place] [address] Ophthalmology 08/10/12 10/02/24 Charlotte Torres, WINSOME 1101 [facility] [address] [place] [address] C Web DeveloperRoom Service Manager 12/15/14 02/26/15 Paula Montelongo, WINSOME 1011 [facility] [address] [place] [address] C Web DeveloperRoom Service Manager 02/27/15 06/25/15 Nikita Bailey MD [facility]5 [place] [address] Otolaryngology 07/06/15 Elias Harris MD 1035 [facility] [address] [place] [address] Pulmonary Disease 03/18/17 Mike Ge MD [address] [place] [address] 425 [place] [address] General Surgery 03/31/17 07/18/19 Omar Painter MD [address] [place] [address] 425 [place] [address] Orthopedic Surgery 12/10/18 10/02/24 Hema Whaley MD 1027 [facility] 200 [place] [address] Cardiology 12/10/18 Gina Stacy RN C Web DeveloperRoom Service Manager 05/09/23 06/17/23 Dorinda Gill MSW Outpatient Azure Principal Solution Specialist Care Management 09/08/23 09/25/23 Vanita Gutierrez Care Coordination Specialist Care Management 10/03/23 10/03/23 Vanita Gutierrez Care Coordination Specialist Care Management 04/07/24 04/07/24 Anne Sharma MD [address] [address] Endocrinology 10/03/24 Justo Ferrer MD 1120 [place] [address] Orthopedic Surgery 10/03/24 Ansley Luciano, MARCO A 1225 S [facility] [place] [phone] Hotel Receptionist Hotel Receptionist 10/03/24 documented as of this encounter
--- OUTSIDE RECORDS SUMMARY | 2024-12-05 02:07 | XMS_ITS | Encounter Summary ---
Author Organization [facility] Address [address] [facility] [address] Care Team Providers Care Coil Winder Strap Name Role Phone Mike Yepez MD Unavailable Nikita Bailey MD Unavailable [phone] Elias Harris MD Unavailable Hema Whaley MD Unavailable Walter York MD Primary Care Provider Walter York MD Unavailable [phone] Anne Sharma MD Unavailable Justo Ferrer MD Unavailable Ansley Luciano OD Unavailable Encounter Details Date Type Department Care Team (Late st Contact Info) Description 10/17/2024 Results Follow-Up [facility] Medical [facility] - Internal Medicine [address] [facility] [place] [address] Laura Mckeon, CHEMICAL ENGINEERING INTERN-TOP CLOSER [address]70 [facility] [place] [address] Social History Tobacco Use Types [...] Recorded Patient Health Questionnaire-2 Score 0 09/30/2024 [facility]at [facility] - Occupational Stress [...] place to sleep or slept in a longterm (including now)? No 09/03/2023 Education Answer Date Recorded What is the highest level of school you have completed or the highest degree you have received? Bachelor's degree (e.g., BA, AB, BS) 10/05/2024 Comments No Sex and Gender Information Value Date Recorded Sex Assigned at Not on file Legal Sex Female 6:39 AM AQUATICS GROUP FITNESS INSTRUCTOR Gender Identity Female 07/31/2022 8:08 AM AQUATICS GROUP FITNESS INSTRUCTOR Sexual Orientation Not on file Occupation Industry [...] 12/07/2024 11:00 AM CDT Clinical Support [facility] Orthopedics [address] [facility], [address] [place] [address] 02/03/2025 10:30 AM CDT Office Visit [facility] Heart & Vascular Care [address] [facility] [address] [place] [address] Hema Whaley MD [address] [place] [address] [address] 200 [place] [address] 02/08/2025 12:40 PM CDT Office Visit [facility] - Endocrinology [address] [place] [address], [address] [place] [address] Lupillo Garcia CHEMICAL ENGINEERING INTERN-TOP CLOSER [address] [place] [address], [address] [place] [address] 04/06/2025 9:20 AM AQUATICS GROUP FITNESS INSTRUCTOR Office Visit [facility] Medical [facility] - Internal Medicine [address] [facility] [place] [address] Laura Mckeon, CHEMICAL ENGINEERING INTERN-TOP CLOSER 8670 [facility] [place] [address] 04/06/2025 1:40 PM AQUATICS GROUP FITNESS INSTRUCTOR Office Visit [facility] - Pulmonology [address] [place] [address], [address] [place] [address] Elias Harris MD [address] [place] [address] [address] [place] [address] 04/22/2025 11:00 AM AQUATICS GROUP FITNESS INSTRUCTOR Office Visit [facility] - Ophthalmology [facility]5 [facility], [place] [address] David Palumbo OD [address] [place] [phone] documented as of this encounter Goals Goal [...] on filedocumented in this encounter Care Teams Coil Winder Strap Relationship Specialty Start Date End Date Walter York MD [address]70 [place] [address] PCP - General Family Medicine 09/18/21 Walter York MD [address]70 [place] [address] PCP - [facility] 06/02/24 Mike Yepez MD [address] [place] [address] Gastroenterology 01/12/10 Nikita Bailey MD 1465 [place] [address] Otolaryngology 07/06/15 Elias Harris MD 1035 [facility] [address] [place] [address] Pulmonary Disease 03/18/17 Hema Whaley MD [facility] 200 [place] [address] Cardiology 12/10/18 Anne Sharma MD [facility]5 [facility] 206 [place] [address] Endocrinology 10/03/24 Justo Ferrer MD [address] [place] [address] Orthopedic Surgery 10/03/24 Ansley Luciano OD [address] [place] [address] DEPT [place] [address] Vendor Quality Supervisor Vendor Quality Supervisor 10/03/24 documented as of this encounter
--- OUTSIDE RECORDS SUMMARY | 2024-12-05 02:07 | XMS_ITS | Encounter Summary ---
Author Organization [facility] Address [address] [place] [address] Care Team Providers Care Storeperson Name Role Phone Chi Goins MD Primary Care Provider [phone] Mike Yepez MD Unavailable Daniella Davis MD Unavailable Unav ailable Rachna Amador RN Unavailable [phone] Yusef Enciso MD Unavailable Unavailable Charlotte Torres RN Unavailable [phone] Paula Montelongo RN Unavailable [phone] Nikita Bailey MD Unavailable [phone] Chi Goins MD Unavailable [phone] Elias Harris MD Unavailable [phone] Mike Ge MD Unavailable [phone] Omar Painter MD Unavailable [phone] Hema Whaley MD Unavailable +[phone] Chi Goins MD Unavailable [phone] Walter [place] MD Primary Care Provider [phone] Walter [place] MD Primary Care Provider [phone] Walter [place] MD Unavailable [phone] Walter [place] MD Unavailable [phone] Gina Stacy RN Unavailable Dorinda Gill FIELD CLERK Unavailable [phone] GutierrezMikeVanita M Unavailable +[phone] Vanita Gutierrez Unavailable [phone] Walter [place] MD Unavailable [phone] Anne Sharma MD Unavailable [phone] Justo Ferrer MD Unavailable Ansley Luciano OD Unavailable [phone] Encounter Details Date Type Department Care Team (Late st Contact Info) Description 06/11/2013 [facility] Outpatient Visit [facility] REHAB [address] [place] [address] Unknown, Provider Social History Tobacco Use Types Packs/Day Years Used Date Smoking Tobacco: Every Day Cigarettes 1 34 Smokeless Tobacco: Never Alcohol Use Standard Drinks/Week Comments Yes 0 (1 standard drink = 0.6 oz pur e alcohol) rarely Comments No Sex and Gender Information Value Date Recorded Sex Assigned at Not on file Legal Sex Female 6:39 AM DIE CAST TECHNICIAN Gender Identity Female 07/31/2022 8:08 AM DIE CAST TECHNICIAN Sexual Orientation Not on file 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 encounter Plan of Treatment Upcoming Encounters Date Type Department Care Team (Late Contact Info) Description 12/07/2024 11:00 AM CDT Clinical Support [facility] Orthopedics [address] [facility], [address] [address] 02/03/2025 10:30 AM CDT Office Visit [facility] Heart & Vascular Care [address] [place] [address] [address] [place] [address] Hema Whaley MD [address] [place] [address] [address] [place], [place] [id number] 02/08/2025 12:40 PM CDT Office Visit [facility] Medical Group - Endocrinology [address] [place] [address] Ave, [address] [place] [address] Lupillo Garcia CHIEF CRUISER-MANAGER INFRASTRUCTURE [address], [address] [place] [address] 04/06/2025 9:20 AM DIE CAST TECHNICIAN Office Visit [facility] Medical [facility] - Internal Medicine [address] [facility] [place] [address] [place] [address] Laura Mckeon, CHIEF CRUISER-MANAGER INFRASTRUCTURE [address] [facility] [place] [address] 04/06/2025 1:40 PM DIE CAST TECHNICIAN Office Visit [facility] - Pulmonology [address] [facility], [address] [place] [address] Elias Harris MD [address] [facility] [address] [place] [address] 04/22/2025 11:00 AM DIE CAST TECHNICIAN Office Visit [facility] - Ophthalmology [address] [facility], [place] [address] David Palumbo OD [address] [place] [phone] documented as of this encounter Goals Goal [...] on filedocumented in this encounter Care Teams Storeperson Relationship Specialty Start Date End Date Chi Goins MD PCP - General 09/19/08 04/30/20 Chi Goins MD [address] [place] [address] PCP - Attributed-Exclusive Choice 11/15/16 06/01/19 Chi Goins MD [address] [facility] [place] [address] PCP - Attributed-[facility] EHP STL 12/01/19 11/18/22 Walter [place] MD [address] [place] [address] PCP - General Family Medicine 05/01/20 09/17/21 Walter [place] MD [address] [place] [address] PCP - General Family Medicine 09/18/21 Walter [place] MD [address] [place] [address] PCP - Attributed-[facility] [place] 06/02/21 09/17/22 Walter [place] MD [address] [place] [address] PCP - Attributed-[facility] [place] 07/31/22 03/19/24 Walter [place] MD [address] [place] [facility] [address] PCP - Attributed-[place] 06/02/24 Mike Yepez MD [address] [facility] 216 [place] [address] Gastroenterology 01/12/10 Daniella Davis MD 01/12/10 10/04/24 Rachna Amador, WINSOME [address] [place] [address] Salon/Spa Manager 06/22/12 12/14/14 Yusef Enciso MD [address] [place] [address] Ophthalmology 08/10/12 10/02/24 Charlotte Torres, WINSOME [address] [facility] [address] [place] [address] Salon/Spa ManagerDiesel Truck Mechanic 12/15/14 02/26/15 Paula Montelongo, WINSOME [address] [facility] [address] [place] [address] Salon/Spa ManagerDiesel Truck Mechanic 02/27/15 06/25/15 Nikita Bailey MD [facility]5 [place] [address] Otolaryngology 07/06/15 Elias Harris MD [address] [facility] [address] [place] [address] Pulmonary Disease 03/18/17 Mike Ge MD [address] [place] [address] [address] [place] [address] General Surgery 03/31/17 07/18/19 Omar Painter MD [address] [place] [address] [address] [place] [address] Orthopedic Surgery 12/10/18 10/02/24 Hema Whaley MD [address] [facility] 200 [place] [address] Cardiology 12/10/18 Gina Stacy, RN Salon/Spa ManagerDiesel Truck Mechanic 05/09/23 06/17/23 Dorinda Gill MSW Outpatient Professional Employer Consultant Care Management 09/08/23 09/25/23 Vanita Gutierrez Care Coordination Specialist Care Management 10/03/23 10/03/23 Vanita Gutierrez Care Coordination Specialist Care Management 04/07/24 04/07/24 Anne Sharma MD [address] [facility] 206 [place] [phone] Endocrinology 10/03/24 Justo Ferrer MD [address] [place] [address] Orthopedic Surgery 10/03/24 Ansley Luciano, MARCO A [address] [facility] [place] [address] Flat Machine Cutter Flat Machine Cutter 10/03/24 documented as of this encounter
--- OUTSIDE RECORDS SUMMARY | 2024-12-05 02:07 | XMS_ITS | Encounter Summary ---
Author Organization [facility] Address [address] [place] [address] Care Team Providers Care Formulator Name Role Phone Chi Goins MD Primary Care Provider [phone] Mike Yepez MD Unavailable Daniella Davis MD Unavailable Unav ailable Rachna Amador RN Unavailable [phone] Yusef Enciso MD Unavailable Unavailable Charlotte Torres RN Unavailable [phone] Paula Montelongo RN Unavailable [phone] Nikita Bailey MD Unavailable [phone] Chi Goins MD Unavailable [phone] Elias Harris MD Unavailable [phone] Mike Ge MD Unavailable [phone] Omar Painter MD Unavailable [phone] Hema Whaley MD Unavailable [phone] Chi Goins MD Unavailable [phone] Walter [place] MD Primary Care Provider [phone] Walter [place] MD Primary Care Provider [phone] Walter [place] MD Unavailable [phone] Walter [place] MD Unavailable [phone] Gina Stacy RN Unavailable Dorinda Gill WAITER/WAITRESS FIRST CLASS Unavailable [phone] GutierrezMikeVanita M Unavailable [phone] Vanita Gutierrez Unavailable [phone] Walter [place] MD Unavailable [phone] Anne Sharma MD Unavailable Justo Ferrer MD Unavailable Ansley Luciano OD Unavailable [phone] Encounter Details Date Type Department Care Team (Late Contact Info) Description 05/07/2010 [facility] Outpatient Visit [facility] REHAB [address] [place] [address] Unknown, Provider Social History Tobacco Use Types Packs/Day Years Used Date Smoking Tobacco: Every Day Cigarettes 1 34 Alcohol Use Standard Drinks/Week Comments No 0 (1 standard drink = 0.6 oz pur e alcohol) Comments No Sex and Gender Information Value Date Recorded Sex Assigned at Not on file Legal Sex Female 6:39 AM SUPERVISOR LACE TEARING Gender Identity Female 07/31/2022 8:08 AM SUPERVISOR LACE TEARING Sexual Orientation Not on file 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, [facility] [address] [place] [address] 02/03/2025 10:30 AM CDT Office Visit [facility] [address] [place] [address] [address] [place] [address] Hema Whaley MD [address] [place] [address] [address] [place] [address] 02/08/2025 12:40 PM CDT Office Visit [facility] - Endocrinology [address] [place] [address], [address] [place] [address] Lupillo Garcia, LAUNDRY PRESSER-BIG [address] [facility], [address] [place] [address] 04/06/2025 9:20 AM SUPERVISOR LACE TEARING Office Visit [facility] - Internal Medicine [address] [facility] [place] [address] Laura Mckeon, LAUNDRY PRESSER-BIG 6 DEALER [address] [facility] [place] [address] 04/06/2025 1:40 PM SUPERVISOR LACE TEARING Office Visit [facility] - Pulmonology [address] [facility], [address] [place] [address] Elias Harris MD [address] [facility] [address] [place] [address] 04/22/2025 11:00 AM SUPERVISOR LACE TEARING Office Visit [facility] - Ophthalmology [address] [facility], [place] [address] David Palumbo OD [address]25 [place] [address] documented as of this encounter Visit Diagnoses Not on filedocumented in this encounter Care Teams Formulator Relationship Specialty Start Date End Date Chi Goins MD PCP - General 09/19/08 04/30/20 Chi Goins MD [address] [place] [address] PCP - Attributed-Exclusive Choice 11/15/16 06/01/19 Chi Goins MD [address] [place] [address] PCP - Attributed-[facility] EHP STL 12/01/19 11/18/22 Walter [place] MD [address] [place] [address] PCP - General Family Medicine 05/01/20 09/17/21 Walter [place] MD [address] [place] [address] PCP - General Family Medicine 09/18/21 Walter [place] MD [address] [place] [address] PCP - Attributed-[facility] [place] 06/02/21 09/17/22 Walter [place] MD [address] [place] [address] PCP - Attributed-[facility] [place] 07/31/22 03/19/24 Walter [place] MD [address] [place] [address] PCP - Attributed-[place] 06/02/24 Mike Yepez MD [address] [place] [address] 216 [place] [address] Gastroenterology 01/12/10 Daniella Davis MD 01/12/10 10/04/24 Rachna Amador, RN [address] [place] [address] Fitness And Wellness Manager 06/22/12 12/14/14 Yusef Enciso MD [address]70 [place] [address] Ophthalmology 08/10/12 10/02/24 Charlotte Torres, WINSOME 1101 [facility] 300 [place] [address] Fitness And Wellness ManagerHouse Admin 12/15/14 02/26/15 Paula Montelongo, WINSOME 101[address] [facility] 300 [place] [address] Fitness And Wellness ManagerHouse Admin 02/27/15 06/25/15 Nikita Bailey MD [facility]5 [place] [address] Otolaryngology 07/06/15 Elias Harris MD [address] [place] [address] 500 [place] [address] Pulmonary Disease 03/18/17 Mike Ge MD [address] [place] [address] 425 [place] [address] General Surgery 03/31/17 07/18/19 Omar Painter MD [address] [place] [address] 425 [place] [address] Orthopedic Surgery 12/10/18 10/02/24 Hema Whaley MD 10[address] [facility] 200 [place] [address] Cardiology 12/10/18 Gina Stacy RN Fitness And Wellness ManagerHouse Admin 05/09/23 06/17/23 Dorinda Gill MSW Outpatient Rugby League Footballer Care Management 09/08/23 09/25/23 Vanita Gutierrez Care Coordination Specialist Care Management 10/03/23 10/03/23 Vanita Gutierrez Care Coordination Specialist Care Management 04/07/24 04/07/24 Anne Sharma MD [address] [phone] Endocrinology 10/03/24 Justo Ferrer MD [address] [place] [address] Orthopedic Surgery 10/03/24 Ansley Luciano, MARCO A [address] [facility] [place] [phone] Health Services Coordinator Health Services Coordinator 10/03/24 documented as of this encounter
--- OUTSIDE RECORDS SUMMARY | 2024-12-05 02:07 | XMS_ITS | Clinical Summary ---
Author Organization [facility] [employer] Address [address] [place] [address] Care Team Providers Care Hospitality Associate Name Role Phone Mike Yepez MD Unavailable Nikita Bailey MD Unavailable [phone] Elias Harris MD Unavailable [phone] Hema Whaley MD Unavailable Walter York MD Primary Care Provider [phone] Walter York MD Unavailable [phone] Anne Sharma MD Unavailable Justo Ferrer MD Unavailable Ansley Luciano OD Unavailable [phone] Source Comments [facility] [employer],non-owned Affiliates and Associated Physician Practices is amultiple site organization consisting of ambulatory clinics and hospital sitesin [place], [place], [place] and [place]. This disclosure is being madepursuant to the Care Everywhere program and may not contain all information available regarding this patient. Last updated 18.[facility] [employer] Allergies Active Allergy Reactions Criticality Noted Date Comments Bupropion Hcl Urticaria Medium 06/28/2008 Duloxetine Nausea and/or Vomiting,Dizziness Low Fatigue Venlafaxine Nausea and/or Vomiting Medium 06/15/2012 Medications * Be aware that medications may not be up to date on this document. Alwaysverify current medications with the patient. MULTIVITAMIN PO Take 1 Tab by mouth once daily. Active fluticasone propionate (FLONASE) 50 MCG/ACT nasal spray Hazel Hurst 1 [place]st into each nostril as needed. 1 Inhaler [...] the original. 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 Goins Vegetable Farmer: Elisa Montelongo RN MEDICATIONS Current Outpatient Prescriptions Medication gabapentin (NEURONTIN) 300 MG capsule traMADol (ULTRAM) 50 MG tablet insulin glargine (LANTUS) injection zolpidem (AMBIEN) 5 MG tablet aspirin 81 MG chew tablet blood glucose (ONETOUCH ULTRA TEST STRIPS) test strip glimepiride (AMARYL) 4 MG tablet pioglitazone (ACTOS) 45 MG tablet metFORMIN (GLUCOPHAGE) 1000 MG tablet vitamin D, ergocalciferol, (DRISDOL) 93399 UNIT capsule lisinopril-hydrochlorothiazide (PRINZIDE; ZESTORETIC) 20-12.5 MG [...] feeling MOST confident): I should call my Vegetable Farmer with any questions, concerns, new problems, failures, or achievements. Also call if you need assistance navigating through the healthcare system or communicating between physicians. Vegetable Farmer name: Elisa Montelongo RNpayroll lead phone: [phone] Vegetable Farmer email: Messages may be sent through MY [...] Description 11/11/2024 10:40 AM CDT Office Visit [facility] - Endocrinology [address] [facility], [address] [place] [phone] Lupillo Garcia, HOST-POTABLE WATER TREATMENT OPERATOR Type 2 diabetes, controlled, with neuropathy (HCC) (Primary Dx); Essential hypertension with goal blood pressure less than 130/80; Dyslipidemia; Osteoporosis with current pathological fracture, unspecified osteoporosis type, sequela 11/11/2024 Travel 10/29/2024 10:50 AM CDT Clinical Support [facility] Orthopedics [address] [facility] [address] [place] [address] Osteoarthritis of spine with radiculopathy, lumbar region 10/17/2024 Results Follow-Up [facility] Internal Medicine [address] [place] [address] [place] [address] Laura Mckeon APRN-JEVON 10/16/2024 Refill [facility] Endocrinology [address] [place] [address], [address] [place] [phone] Anne Sharma MD Refill Request 10/05/2024 1:20 PM CDT Office Visit [facility] Internal Medicine [address] [place] [address] [place] [address] Laura Mckeon, HOST-POTABLE WATER TREATMENT OPERATOR Routine physical examination (Primary Dx); Essential hypertension with goal blood pressure less than 130/80; Atherosclerosis of aorta; Coronary artery disease involving la posta coronary artery of la posta heart without angina pectoris; COPD, severe (HCC); [...] Travel 10/04/2024 11:40 AM CDT Office Visit [facility] - Pulmonology [address] [place] [address], [address] [place] [address] Elias Harris MD COPD, severe (HCC) (Primary Dx); Tobacco use disorder; Multiple lung nodules on CT 10/01/2024 Refill [facility] Internal Medicine [address] [facility] [place] [address] [place] [address] Walter York MD Refill Request 09/20/2024 11:00 AM CDT Clinical Support [facility] [address] [place] [address], [address] [place] [phone] Osteoarthritis of spine with radiculopathy, lumbar region 09/12/2024 Refill [facility] V[facility] [address] [facility] [address] [place] [address] Hema Whaley MD Refill Request 09/08/2024 9:25 AM CDT Ancillary Procedure [facility] - Radiology [address] [place] [phone] Wale Flores, HOST-POTABLE WATER TREATMENT OPERATOR Right leg pain 09/08/2024 9:20 AM CDT Office Visit [facility] [address] [place] [address] [address] [place] [address] Wale Flores, HOST-POTABLE WATER TREATMENT OPERATOR Osteoarthritis of spine with radiculopathy, lumbar region (Primary Dx); Right leg pain 09/05/2024 Refill [facility] - Endocrinology [facility] [facility] [facility] [address] [place] [address] Anne Sharma MD Refill Request [...] Status Comments Brother Alive Father (Age 59) [place] Maternal Grandfather Maternal Grandmother Mother (Age 64) [...] Recorded Patient Health Questionnaire-2 Score 0 09/30/2024 [facility] [employer] of Occupat ional Health - Occupational Stress [...] place to sleep or slept in a correction (including now)? No 09/03/2023 Education Answer Date Recorded What is the highest level of school you have completed or the highest degree you have received? Bachelor's degree (e.g., BA, AB, BS) 10/05/2024 Comments No Sex and Gender Information Value Date Recorded Sex Assigned at Not on file Legal Sex Female 6:39 AM FILTRATION OPERATOR Gender Identity Female 07/31/2022 8:08 AM FILTRATION OPERATOR Sexual Orientation Not on file Occupation Industry [...] CDT Clinical Support [facility] [address] [place] [address], [address] [phone] 02/03/2025 10:30 AM CDT Office Visit [facility] [address] [place] [address] [address] [place] [address] Hema Whaley MD [address] [place] [address] [address] [place] [address] 02/08/2025 12:40 PM CDT Office Visit [facility] - Endocrinology [address], [address] [place] [phone] Lupillo Garcia HOST-POTABLE WATER TREATMENT OPERATOR [address], [address] [place] [address] 04/06/2025 9:20 AM FILTRATION OPERATOR Office Visit [facility] - Internal Medicine [address] [facility] [place] [address] Laura Mckeon, HOST-POTABLE WATER TREATMENT OPERATOR [address] [facility] [place] [phone] 04/06/2025 1:40 PM FILTRATION OPERATOR Office Visit [facility] - Pulmonology [address] [facility], [address] [place] [address] Elias Harris MD [address] [facility] [address] [place] [address] 04/22/2025 11:00 AM FILTRATION OPERATOR Office Visit [facility] - Ophthalmology [address] [facility], [place] [phone] David Palumbo, OD [facility] [place] [phone] Health Maintenance Due Date Last Done Comments [...] 10:16 AM CDT) No Rachna Amador RN [facility] Lifestyle: Have labs drawn Lifestyle On track( 015 9:29 AM CDT) Chrissy Vázquez HEMOGLOBIN A1C < 8 Result Component 6.6( 4 3:41 AM CDT) No Rachna Amador RN Medical Devices Implanted Type Area Wharf Labourer Device Identifier Shelf Expiration Date Model / Serial / Lot Cochlear Baha [id number] Abdutment 14mm Implanted:Qty: 1 on 10/22/2018 by Nikita Bailey MD at [facility] Right: Ear 11/08/2020 [id number] / / [id number] Lens Iol +28 Rosalie Autonome [facility] - [id number] Implanted:Qty: 1 on 08/06/2022 by Albert Mckenna MD at [facility] Right: Eye [employer] 10/06/2024 [id number] / [id number] / 0000 Acry Sopf Iq Toric Implanted:Qty: 1 on 08/27/2022 by Albert Mckenna MD at [facility] Left: Eye [employer] 08/31/2023 [id number] / [id number] Gamma Trochanteric Nail 170mm 11 X 170mm X 125 Degree Implanted:Qty: 1 on 09/03/2023 by Mehdi Forte MD at [facility] Right: Femur [employer] 06/01/2033 [id number] / / [id number] Screw 10.5mm 90mm Lag Gma Strl Bone Lf Implanted:Qty: 1 on 09/03/2023 by Mehdi Forte MD at [facility] Right: Femur [employer] 05/01/2033 [id number] / / [id number] Screw 5mm 35mm Lck T2 Alpha Strl Bone Implanted:Qty: 1 on 09/03/2023 by Mehdi Forte MD at [facility] Right: Femur [employer] 07/02/2033 [id number] / / [id number] Procedures Procedure Name Priority Date/Time Associated Diagnosis [...] Atherosclerosis of aorta Coronary artery disease involving la posta coronary artery of la posta heart without angina pectoris CBC W AUTO [...] ENDOSCOPY, COLON, SCREENING Routine 07/31/2022 8:47 AM FILTRATION OPERATOR Screen for colon cancer EYE EXAM 03/18/2022 HEPATITIS C ANTIBODY Routine 09/30/2012 9:13 AM CDT Need for hepatitis C screening test from Last 3 Months or Most Recently Relevant to Health Maintenance Results * HEMOGLOBIN A1C - POINT OF CARE (AMB) (11/11/2024 10:55 AM CDT) Hemoglobin A1c POCT 6.5 % [facility] Expiration Date [id number] [facility] Lot # [id number] [facility] QC Verified Yes Yes [facility] Blood BLOOD SPECIMEN / Unknown 11/11/2024 10:55 AM CDT LindyNexeonlesley Pittsjefferson HOST-POTABLE WATER TREATMENT OPERATOR LAB - POINT OF C ARE ORDERABLES Final Result [facility] [address] [place] [address], [place] [phone] * (ABNORMAL) GLUCOSE - POINT OF CARE (AMB) ST (11/11/2024 10:54 AM CDT) Glucose 102(A) 60 - 100 mg/dL [facility] Lot # [id number] [facility] Expiration Date [id number] [facility] QC Verified Yes Yes [facility] Blood BLOOD SPECIMEN / Unknown 11/11/2024 10:54 AM CDT Gabinowa Shameka Radha HOST-POTABLE WATER TREATMENT OPERATOR LAB - POINT OF C ARE ORDERABLES Final Result [facility] [address] [place] [address], [place] [phone] * VITAMIN D 25-HYDROXY (10/14/2024 11:14 AM CDT) Vitamin D, 25 Hydroxy 42.3 30.0 - 100.0 ng/mL [facility] INSURANCE BILL Comment: Vitamin D deficiency has been defined by the Arion of Medicine and an Endocrine Society practice guideline as a level of serum 25-OH vitamin D less than 20 ng/mL (1,2). The Endocrine Society went on to further define vitamin D insufficiency as a level between 21 and 29 ng/mL (2). 1. IOM (Arion of Medicine). 2010. Dietary reference intakes for calcium and D. [place]: The National Academies Press. 2. Armando MF, Julius NOWAK, Zeb TORRES, et al. Evaluation, treatment, and prevention of vitamin D deficiency: an Endocrine Society clinical practice guideline. JCEM. 2010; 96(7):1911-30. Blood BLOOD SPECIMEN / Unknown 10/14/2024 11:14 AM CDT 10/14/2024 Narrative [facility] INSURANCE BILL - 10/15/2024 9:10 AM CDT Performed at: [address] [place] [id number] Business Affairs Manager: Martin Sotelo PhD, Phone: [phone] Laura Mckeon [facility] - CHEMISTRY ORDERAB LES Final Result Performing Organization Address [facility] Co de Phone Number [facility] INSURANCE BILL [address] [place] [address] * TSH HI LOW REFLEX FREE T4 (10/14/2024 11:13 AM CDT) [facility] TSH 0.676 0.450 - 4.500 uIU/mL [facility] INSURANCE BILL Blood BLOOD SPECIMEN / Unknown 10/14/2024 11:13 AM CDT 10/14/2024 Narrative [facility] INSURANCE BILL - 10/15/2024 10:10 AM CDT Performed at: [address] [place] [id number] Business Affairs Manager: Martin Sotelo PhD, Phone: [phone] Laura Mckeon [facility] - CHEMISTRY ORDERAB LES Final Result Performing Organization Address [facility] Co de Phone Number [facility] INSURANCE BILL [address] [place] [address] * (ABNORMAL) MICROALB/CREAT RATIO URINE RANDOM PANEL [...] 1:10 PM CDT Performed at: 01 - [address] [id number] Business Affairs Manager: Martin Sotelo PhD, Phone: [phone] us Laura Mckeon HOST-POTABLE WATER TREATMENT OPERATOR LAB - URINE CHEMISTRY O RDERABLES Final Result [facility] INSURANCE BILL [address] [place] [address] * CBC WITH DIFFERENTIAL (10/14/2024 11:13 AM [...] - 10/15/2024 7:09 AM CDT Performed at: [address] [place] [id number] Business Affairs Manager: Martin Sotelo PhD, Phone: [phone] us Laura Mckeon HOST-POTABLE WATER TREATMENT OPERATOR LAB - HEMATOLOGY ORDERA BLES Final Result [facility] INSURANCE BILL [address] [place] [address] * (ABNORMAL) COMPREHENSIVE METABOLIC PANEL (10/14/2024 11:13 [...] - 10/15/2024 9:10 AM CDT Performed at: [address] [id number] Business Affairs Manager: Martin Sotelo PhD, Phone: [phone] us Laura Mckeon APRN-POTABLE WATER TREATMENT OPERATOR LAB - CHEMISTRY ORDERAB LES Final Result Performing Organization Address City/[facility] de Phone Number [facility] INSURANCE BILL [address] [place] [address] * IRON + TIBC PANEL (10/14/2024 11:13 AM CDT) [facility] TIBC 273 250 - 450 ug/dL [facility] INSURANCE BILL UIBC 210 118 - 369 ug/dL [facility] INSURANCE BILL Iron 63 27 - 139 ug/dL [facility] INSURANCE BILL Iron Saturation 23 15 - 55 % [facility] INSURANCE BILL Blood BLOOD SPECIMEN / Unknown 10/14/2024 11:13 AM CDT 10/14/2024 Narrative [facility] INSURANCE BILL - 10/15/2024 11:11 AM CDT Performed at: [address] [id number] Business Affairs Manager: Martin Sotelo PhD, Phone: [phone] us Laura Mckeon HOST-POTABLE WATER TREATMENT OPERATOR LAB - CHEMISTRY ORDERAB LES Final Result Performing Organization Address City/[facility] de Phone Number [facility] INSURANCE BILL [address] [place] [address] * LIPID PROFILE (10/14/2024 11:13 AM CDT) [...] 9:10 AM CDT Performed at: [address] - [address] [id number] Business Affairs Manager: Martin Sotelo PhD, Phone: [phone] us Laura Mckeon HOST-POTABLE WATER TREATMENT OPERATOR LAB - CHEMISTRY ORDERAB LES Final Result [facility] INSURANCE BILL [address] [place] [address] * XR Hip Right 2Vw or More (09/08/2024 9:19 AM CDT) Anatomical Region Laterality Modality Pelvis, Lower Extremity Computed Radiography Narrative 09/08/2024 9:19 AM CDT Please see progress note in Epic for results. us Wale Flores HOST-POTABLE WATER TREATMENT OPERATOR DIAGNOSTIC IMAGING ORDBethany DIETZ Edited Result - [...] search: Lung-RADS Lung Cancer Screening 3) Contact [facility] thoracic nurse coordinator ([phone]) > Interpreting Provider: Gilmar Welsh MD on [...] search: Lung-RADS Lung Cancer Screening 3) Contact [facility] thoracic nurse coordinator ([phone]) > Interpreting Provider: Gilmar Welsh MD on 02/09/2024 11:44 AM Phyllis Murphy HOST-POTABLE WATER TREATMENT OPERATOR CT ORDERABLES Final R esult * DEXA [...] Boo DO on 10/07/2023 1:13 PM Wale Florse HOST-POTABLE WATER TREATMENT OPERATOR DEXA ORDERABLES Final R esult * MAMMO [...] * ENDOSCOPY, COLON, SCREENING (07/31/2022 8:47 AM FILTRATION OPERATOR) Report Endoscopy POC _ Patient Name: Prosper Houser Procedure Date: 07/31/2022 8:47 AM Date of : 1955 Admit Type: Outpatient Age: 67 Gender: Female Ethnicity: Not or Race: Black or Attending MD: Mike Yepez MD _ Procedure: Colonoscopy Indications: Screening for colorectal malignant neoplasm Providers: Mike Yepez MD (Doctor), Rafa Haney RN, Pattie Vidal RN, Sofie Stacy, Foreclosure Specialist Referring MD: Walter York MD (Referring MD) [...] pathology results. Procedure Code(s): --- Professional --- 03378, Colonoscopy, flexible; with biopsy, single or multiple --- Technical --- 50564, Colonoscopy, flexible; with biopsy, single or multiple [...] or abscess without bleeding CPT copyright 2019 [employer]. All rights reserved. The codes documented in this report are preliminary and upon russian language professor review may be revised to meet current compliance requirements. Mike Yepez MD 07/31/2022 9:47:36 AM This report has been signed electronically. Number of Addenda: 0 Note Initiated On: 07/31/2022 8:47 AM [facility] 07/31/2022 8:47 AM FILTRATION OPERATOR us Mike Yepez MD GI PROCEDURE ORDERABLES Edited R esult - Final [facility] * EYE EXAM (03/18/2022) Anatomical Region [...] a more specific supplemental or PCR testing. [facility] offers HCV Ab w/Reflex to Verification test #[id number]. Blood specimen (specimen) BLOOD SPECIMEN / Unknown 09/30/2012 9:13 AM CDT 09/30/2012 2:01 PM CDT Narrative Resulting Agency Comment [facility] [address] [facility] [id number] us Chi Goins MD LAB - CHEMISTRY ORDERABLES F inal Result Performing Organization Address City/[facility] Co de Phone Number [facility] ACCOUNT BILL [address] [place] [address] from Last 3 Months or Most Recently Relevant to Health Maintenance Insurance [employer] [address] Advance Directives Documents on File Type Date Recorded 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 Adv Directive/Living Will/POA 02/18/2017 11:41 PM Advance Directives and Living Will 12/07/2015 12:00 AM Adv Directive/Living Will/POA 01/25/2015 10:57 AM POA for health Care - [place] * Full Code (Latest Code Status on File) Date Activated Date Inactivated Comments 09/02/2023 8:54 PM 09/05/2023 5:24 PM * Full Code Date Activated Date Inactivated Comments 10/21/2018 8:35 PM 10/22/2018 11:35 AM * FULL RESUSCITATION Date Activated Date Inactivated Comments 04/11/2011 3:49 PM 04/13/2011 5:02 AM Care Teams Hospitality Associate Relationship Specialty Start Date End Date Walter York MD [address] [place] [phone] PCP - General Family Medicine 09/18/21 Walter York MD [address] [place] [phone] PCP - [facility] 06/02/24 Mike Yepez MD [address] [facility] [address] [place] [address] Gastroenterology 01/12/10 Nikita Bailey MD [facility] [place] [address] Otolaryngology 07/06/15 Elias Harris MD [address] [facility] [address] [place] [address] Pulmonary Disease 03/18/17 Hema Whaley MD [address] [facility] [address] [place] [address] Cardiology 12/10/18 Anne Sharma MD [facility] [address] [place] [phone] Endocrinology 10/03/24 Justo Ferrer MD [address] [place] [address] Orthopedic Surgery 10/03/24 Ansley Luciano OD [address] [place] [address] [place] [address] Level Vial Sealer Level Vial Sealer 10/03/24
--- OUTSIDE RECORDS SUMMARY | 2024-12-05 02:07 | XMS_ITS | Encounter Summary ---
Demographics Address [address] [address] Mobile Phone Home Phone Email Address Email Address Email Address Email Address Preferred Language Slovak Marital Status Single Confucianism Affiliation Unknown Race Black or Kerline rican Ethnic Group Not or Lati no Author Organization [facility] Address [address] [place] [address] Care Team Providers Care Team Assembler Name Role Phone Chi Goins MD Primary Care Provider [phone] Mkie Yepez MD Unavailable Daniella Davis MD Unavailable Unav ailable Rachna Amador RN Unavailable +[phone] Yusef Enciso MD Unavailable Unavailable Charlotte Torres RN Unavailable [phone] Paula Montelongo RN Unavailable [phone] Nikita Bailey MD Unavailable [phone] Chi Goins MD Unavailable +[phone] Elias Harris MD Unavailable +[phone] Mike Ge MD Unavailable Omar Painter MD Unavailable [phone] Hema Whaley MD Unavailable +[phone] Chi Goins MD Unavailable [phone] Walter York MD Primary Care Provider [phone] Walter York MD Primary Care Provider [phone] Walter York MD Unavailable [phone] Walter York MD Unavailable [phone] Gina Stacy RN Unavailable Dorinda Gill PIPE FITTER Unavailable [phone] Vanita Gutierrez M Unavailable +[phone] Gutierrez, Vanita M Unavailable +[phone] Walter York MD Unavailable [phone] Anne Sharma MD Unavailable Justo Ferrer MD Unavailable Ansley Luciano OD Unavailable [phone] Encounter Details Date Type Department Care Team (Late Contact Info) Description 03/16/2010 [facility] Outpatient Visit [facility] [place] - Diabetes Education [address] [place] [address] Unknown, Provider Social History Tobacco Use Types Packs/Day Years Used Date Smoking Tobacco: Every Day Cigarettes 1 34 Alcohol Use Standard Drinks/Week Comments No 0 (1 standard drink = 0.6 oz pur e alcohol) Comments No Sex and Gender Information Value Date Recorded Sex Assigned at Not on file Legal Sex Female 6:39 AM TEAM DRIVER Gender Identity Female 07/31/2022 8:08 AM TEAM DRIVER Sexual Orientation Not on file 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 encounter Plan of Treatment Upcoming Encounters Date Type Department Care Team (Late Contact Info) Description 12/07/2024 11:00 AM CDT Clinical Support [facility] [address] [place] [address], [address] [address] 02/03/2025 10:30 AM CDT Office Visit [facility] [address] [place] [address] [address] [place] [address] Hema Whaley MD [address] [place] [address] [address] [place], [place] [id number] 02/08/2025 12:40 PM CDT Office Visit [facility] - Endocrinology [address] [place] [address], [address] [place] [address] Lupillo Garcia SKIVER HEEL TAP-PACKER AND CARRY OUT [address] [facility], [address] [place] [address] 04/06/2025 9:20 AM TEAM DRIVER Office Visit [facility] - Internal Medicine [address] [facility] [place] [address] Laura Mckeon, SKIVER HEEL TAP-PACKER AND CARRY OUT [address] [facility] [place] [address] 04/06/2025 1:40 PM TEAM DRIVER Office Visit [facility] - Pulmonology [address] [facility], [address] [place] [address] Elias Harris MD [address] [facility] [address] [place] [address] 04/22/2025 11:00 AM TEAM DRIVER Office Visit [facility] - Ophthalmology [address] [facility], [place] [address] David Palumbo OD [address] [place] [phone] documented as of this encounter Visit Diagnoses Not on filedocumented in this encounter Care Teams Team Assembler Relationship Specialty Start Date End Date Chi Goins MD PCP - General 09/19/08 04/30/20 Chi Goins MD [address]70 [place] [address] PCP - Attributed-Exclusive Choice 11/15/16 06/01/19 Chi Goins MD [address] [place], [place] [phone] PCP - Attributed-[facility] EHP STL 12/01/19 11/18/22 Walter York MD [address] [place] [address] PCP - General Family Medicine 05/01/20 09/17/21 Walter York MD [address]70 [place] [address] PCP - General Family Medicine 09/18/21 Walter York MD [address]70 [place] [address] PCP - Attributed-[facility] [place] 06/02/21 09/17/22 Walter York MD [address] [place] [address] PCP - Attributed-[facility] [place]D [place] 07/31/22 03/19/24 Walter York MD [address]70 [place] [address] PCP - Attributed-C[facility]entry [place] 06/02/24 Mike Yepez MD [address] [place] [address] 216 [place] [address] Gastroenterology 01/12/10 Daniella Davis MD 01/12/10 10/04/24 Rachna Amador, RN 8670 [place] [address] Waiter/Waitress Counter 06/22/12 12/14/14 Yusef Enciso MD [address]70 [place] [address] Ophthalmology 08/10/12 10/02/24 Charlotte Torres, WINSOME 1101 [facility] 300 [place] [address] Waiter/Waitress CounterChoke Setter 12/15/14 02/26/15 Paula Montelongo RN 1011 [facility] 300 [place] [address] Waiter/Waitress CounterChoke Setter 02/27/15 06/25/15 Nikita Bailey MD [facility]5 [place] [address] Otolaryngology 07/06/15 Elias Harris MD 1035 [facility] 500 [place] [address] Pulmonary Disease 03/18/17 Mike Ge MD [address] [place] [address] 425 [place] [address] General Surgery 03/31/17 07/18/19 Omar Painter MD [address] [place] [address] 425 [place] [address] Orthopedic Surgery 12/10/18 10/02/24 Hema Whaley MD 1027 [facility] 200 [place] [address] Cardiology 12/10/18 Gina Stacy RN Waiter/Waitress CounterChoke Setter 05/09/23 06/17/23 Dorinda Gill MSW Outpatient Support Services Tech Care Management 09/08/23 09/25/23 Vanita Gutierrez Care Coordination Specialist Care Management 10/03/23 10/03/23 Vanita Gutierrez Care Coordination Specialist Care Management 04/07/24 04/07/24 Anne Sharma MD [address] [address] Endocrinology 10/03/24 Justo Ferrer MD [address] [place] [address] Orthopedic Surgery 10/03/24 Ansley Luciano, MARCO A [address] [facility] [place] [address] Special Crimes Investigator Special Crimes Investigator 10/03/24 documented as of this encounter
--- OUTSIDE RECORDS SUMMARY | 2024-12-05 02:08 | XMS_ITS | Encounter Summary ---
Author Organization [facility] Address [address] [place] [address] Care Team Providers Care Artificial Pearl Maker Name Role Phone Chi Goins MD Primary Care Provider [phone] Mike Yepez MD Unavailable Daniella Davis MD Unavailable Unav ailable Rachna Amador RN Unavailable [phone] Yusef Enciso MD Unavailable Unavailable Charlotte Torres RN Unavailable [phone] Paula Montelongo RN Unavailable [phone] Nikita Bailey MD Unavailable [phone] Chi Goins MD Unavailable [phone] Elias Harris MD Unavailable [phone] Mike Ge MD Unavailable [phone] Omar Painter MD Unavailable [phone] Hema Whaley MD Unavailable [phone] Chi Goins MD Unavailable [phone] Walter York MD Primary Care Provider [phone] Walter York MD Primary Care Provider [phone] Walter York MD Unavailable [phone] Walter York MD Unavailable [phone] Gina Stacy RN Unavailable Bridget Dorinda ALLEY CLEANER Unavailable [phone] Vanita Gutierrez M Unavailable [phone] GutierrezMikeVanita M Unavailable [phone] Walter York MD Unavailable [phone] Anne Sharma MD Unavailable Justo Fererr MD Unavailable Mustapha Ansley M OD Unavailable [phone] Encounter Details Date Type Department Care Team (Late Contact Info) Description 04/26/2011 [facility] Outpatient Visit [facility]TERNAL [facility] Unknown, Provider Social History Tobacco Use Types Packs/Day Years Used Date Smoking Tobacco: Every Day Cigarettes 1 34 Smokeless Tobacco: Never Alcohol Use Standard Drinks/Week Comments No 0 (1 standard drink = 0.6 oz pur e alcohol) Comments No Sex and Gender Information Value Date Recorded Sex Assigned at Not on file Legal Sex Female 6:39 AM DRIP MOLDER Gender Identity Female 07/31/2022 8:08 AM DRIP MOLDER Sexual Orientation Not on file 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 encounter Plan of Treatment Upcoming Encounters Date Type Department Care Team (Late Contact Info) Description 12/07/2024 11:00 AM CDT Clinical Support [facility] Orthopedics [address] [place] [phone] 02/03/2025 10:30 AM CDT Office Visit [facility] Heart & Vascular Care [facility] [facility] [address] [place] [address] Hema Whaley MD [address] [place] [address] [address] [place] [address] 02/08/2025 12:40 PM CDT Office Visit [facility] - Endocrinology [address] [place] [address], [facility] 206 [place] [address] Lupillo Garcia, ELECTRONIC INDUSTRIAL CONTROLS MECHANIC-FLAME CHANNELER [address] [facility], [address] [place] [address] 04/06/2025 9:20 AM DRIP MOLDER Office Visit [facility] Medical [facility] - Internal Medicine [address] [facility] [place] [address] Laura Mckeon, ELECTRONIC INDUSTRIAL CONTROLS MECHANIC-FLAME CHANNELER [address] [facility] [place] [address] 04/06/2025 1:40 PM DRIP MOLDER Office Visit [facility] - Pulmonology [address] [facility], [address] [place] [address] Elias Harris MD [address] [facility] [address] [place] [address] 04/22/2025 11:00 AM DRIP MOLDER Office Visit [facility] - Ophthalmology [address] [facility], [place] [address] David Palumbo OD [address] [place] [phone] documented as of this encounter Visit Diagnoses Not on filedocumented in this encounter Care Teams Artificial Pearl Maker Relationship Specialty Start Date End Date Chi Goins MD PCP - General 09/19/08 04/30/20 Chi Goins MD [address]70 [place] [address] PCP - Attributed-Exclusive Choice 11/15/16 06/01/19 Chi Goins MD [address] [place] [address] PCP - Attributed-[facility] EHP STL 12/01/19 11/18/22 Walter York MD [address] [place] [address] PCP - General Family Medicine 05/01/20 09/17/21 Walter York MD [address] [place] [address] PCP - General Family Medicine 09/18/21 Walter York MD [address] [place] [address] PCP - Attributed-[facility] [place] 06/02/21 09/17/22 Walter York MD [address] [place] [address] PCP - Attributed-[facility] [place] 07/31/22 03/19/24 Walter York MD [address] [place] [address] PCP - Attributed-Coventry [place] 06/02/24 Mike Yepez MD [address] [place] [id number] Gastroenterology 01/12/10 Daniella Davis MD 01/12/10 10/04/24 Rachna Amador, RN [address]70 [place] [address] Vascular Radiologist 06/22/12 12/14/14 Yusef Enciso MD [address]70 [place] [address] Ophthalmology 08/10/12 10/02/24 Charlotte Torres, WINSOME 1101 [facility] 300 [place] [address] Vascular RadiologistWindows Phone Developer 12/15/14 02/26/15 Paula Montelongo, WINSOME 1011 [facility] 300 [place] [address] Vascular RadiologistWindows Phone Developer 02/27/15 06/25/15 Nikita Bailey MD [facility]5 [place] [address] Otolaryngology 07/06/15 Elias Harris MD 1035 [facility] 500 [place] [address] Pulmonary Disease 03/18/17 Mike Ge MD [address] [place] [address] 425 [place] [address] General Surgery 03/31/17 07/18/19 Omar Painter MD [address] [place] [address] 425 [place] [address] Orthopedic Surgery 12/10/18 10/02/24 Hema Whaley MD 1027 [facility] 200 [place] [address] Cardiology 12/10/18 Gina Stacy RN Vascular RadiologistWindows Phone Developer 05/09/23 06/17/23 Dorinda Gill MSW Outpatient Animal Pathologist Care Management 09/08/23 09/25/23 Vanita Gutierrez Care Coordination Specialist Care Management 10/03/23 10/03/23 Vanita Gutierrez Care Coordination Specialist Care Management 04/07/24 04/07/24 Anne Sharma MD [address] [phone] Endocrinology 10/03/24 Justo Ferrer MD [address] [place] [address] Orthopedic Surgery 10/03/24 Ansley Luciano, MARCO A 12[address] [facility] [place] [phone] Reports Developer Reports Developer 10/03/24 documented as of this encounter
--- OUTSIDE RECORDS SUMMARY | 2024-12-05 02:08 | XMS_ITS | Encounter Summary ---
Author Organization [facility] Address [address] [facility] [facility] [address] [place] [address] Care Team Providers Care Computer Discovery Teacher Name Role Phone Chi Goins MD Primary Care Provider [phone] Mike Yepez MD Unavailable Daniella Davis MD Unavailable Unav ailable Yusef Enciso MD Unavailable Unavailable Nikita Bailey MD Unavailable [phone] Chi Goins MD Unavailable [phone] Elias Harris MD Unavailable [phone] Mike Ge MD Unavailable [phone] Omar Painter MD Unavailable [phone] Hema Whaley MD Unavailable [phone] Chi Goins MD Unavailable [phone] Walter York MD Primary Care Provider [phone] Walter York MD Primary Care Provider +[phone] Walter York MD Unavailable [phone] Walter York MD Unavailable [phone] Gina Stacy RN Unavailable Dorinda Gill AIRPLANE MECHANIC Unavailable +[phone] Vanita Gutierrez Unavailable +[phone] Vanita Gutierrez Unavailable +[phone] Walter York MD Unavailable [phone] Anne Sharma MD Unavailable [phone] Justo Ferrer MD Unavailable [phone] Mustapha Ansley M OD Unavailable [phone] Encounter Details Date Type Department Care Team (Late Contact Info) Description 09/27/2015 Therapy Visit [facility] [address] [place] [address] Document, Scanned Social History Tobacco Use Types Packs/Day Years Used Date Smoking Tobacco: Every Day Cigarettes 1 34 Smokeless Tobacco: Never Alcohol Use Standard Drinks/Week Comments Yes 0 (1 standard drink = 0.6 oz pur e alcohol) rarely Comments No Sex and Gender Information Value Date Recorded Sex Assigned at Not on file Legal Sex Female 6:39 AM GENETIC SCIENTIST Gender Identity Female 07/31/2022 8:08 AM GENETIC SCIENTIST Sexual Orientation Not on file 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 Orthopedics [address] [place] [address] 100 [place] [address] 02/03/2025 10:30 AM CDT Office Visit [facility] Heart & Vascular Care [address] [place] [address] [address] [place] [address] Hema Whaley MD [address] [place] [address] [address] [place] [address] 02/08/2025 12:40 PM CDT Office Visit [facility] - Endocrinology [address] [place] [address], [address] [place] [address] Lupillo Garcia, PRODUCT DEVELOPMENT CHEMIST-RECORD PRESS TENDER [address] [place] [address], [address] [place] [address] 04/06/2025 9:20 AM GENETIC SCIENTIST Office Visit [facility] Medical [facility] - Internal Medicine [address] [facility] [place] [address] Narajulio césar Laura Damian, PRODUCT DEVELOPMENT CHEMIST-RECORD PRESS TENDER [address] [place] [facility] [place] [address] 04/06/2025 1:40 PM GENETIC SCIENTIST Office Visit [facility] - Pulmonology 1035 [facility] [address] [place] [address] Elias Harris MD 1035 [facility] [address] [place] [address] 04/22/2025 11:00 AM GENETIC SCIENTIST Office Visit [facility] - Ophthalmology 1225 [place] [phone] David Palumbo, MARCO A 1225 [place] [address] documented as of this encounter Goals Goal [...] 10:16 AM CDT) No Rachna Amador, WINSOME [facility] Lifestyle: Have labs drawn Lifestyle On track( 9:29 AM CDT) No Chrissy Evans HEMOGLOBIN A1C < 8 Result Component 6.6( 3:41 AM CDT) No Rachna Amador, RN documented as of this encounter Visit Diagnoses Not on filedocumented in this encounter Care Teams Computer Discovery Teacher Relationship Specialty Start Date End Date Chi Goins MD PCP - General 09/19/08 04/30/20 Chi Goins MD [address] [place] [address] PCP - Attributed-Exclusive Choice 11/15/16 06/01/19 Chi Goins MD [address] [place] [address] PCP - Attributed-[facility] EHP STL 12/01/19 11/18/22 Walter York MD [address] [facility] [place] [address] PCP - General Family Medicine 05/01/20 09/17/21 Walter York MD [address] [place] [address] PCP - General Family Medicine 09/18/21 Walter York MD [address] [place] [address] PCP - Attributed-[facility] [place] 06/02/21 09/17/22 Walter York MD [address] [place] [address] PCP - Attributed-[facility] [place] 07/31/22 03/19/24 Walter York MD [address] [place] [address] PCP - Attributed-[facility] 06/02/24 Mike Yepez MD [address] [place] [address] 216 [place], [place] [phone] Gastroenterology 01/12/10 Daniella Davis MD 01/12/10 10/04/24 Yusef Enciso MD [facility] 08/10/12 10/02/24 Nikita Bailey MD [address] [place] [address] Otolaryngology 07/06/15 Elias Harris MD [address] [place] [address] 500 [place] [address] Pulmonary Disease 03/18/17 Mike Ge MD [address] [place] [address] 425 [place], [place] [phone] General Surgery 03/31/17 07/18/19 Omar Painter MD [address] [place] [address] 425 [place] [address] Orthopedic Surgery 12/10/18 10/02/24 Hema Whaley MD [address] [place] [address] 200 [place] [address] Cardiology 12/10/18 Gina Stacy, RN Corporate Communications InternCross Roller 05/09/23 06/17/23 Dorinda Gill MSW Outpatient Teacher Of The Emotionally Disturbed Care Management 09/08/23 09/25/23 Vanita Gutierrez Care Coordination Specialist Care Management 10/03/23 10/03/23 Vanita Gutierrez Care Coordination Specialist Care Management 04/07/24 04/07/24 Anne Sharma MD [address] [address] Endocrinology 10/03/24 Justo Ferrer MD 1120 [place] [address] Orthopedic Surgery 10/03/24 Ansley Luciano, MARCO A 1225 [address] [facility] [place] [address] Beef Skinner Beef Skinner 10/03/24 documented as of this encounter
--- OUTSIDE RECORDS SUMMARY | 2024-12-05 02:08 | XMS_ITS | Encounter Summary ---
Author Organization [facility] Address [address] [place] [address] Care Team Providers Care Ton Container Shipper Name Role Phone Chi Goins MD Primary Care Provider [phone] Mike Yepez MD Unavailable Daniella Davis MD Unavailable Unav ailable Yusef Enciso MD Unavailable Unavailable Nikita Bailey MD Unavailable [phone] Chi Goins MD Unavailable +[phone] Elias Harris MD Unavailable +[phone] Mike Ge MD Unavailable [phone] Omar Painter MD Unavailable [phone] Hema Whaley MD Unavailable +[phone] Chi Goins MD Unavailable [phone] Walter York MD Primary Care Provider +[phone] Walter York MD Primary Care Provider +[phone] Walter York MD Unavailable [phone] Walter York MD Unavailable [phone] Gina Stacy RN Unavailable Dorinda Gill AIRPLANE CLEANER Unavailable +[phone] Vanita Gutierrez Unavailable +[phone] Vanita Gutierrez Unavailable +[phone] Walter York MD Unavailable [phone] Anne Sharma MD Unavailable Justo Ferrer MD Unavailable Ansley Luciano OD Unavailable Encounter Details Date Type Department Care Team (Late Contact Info) Description 10/11/2015 [facility] [place] [place] [address] Document, Scanned Social History Tobacco Use Types Packs/Day Years Used Date Smoking Tobacco: Every Day Cigarettes 1 34 Smokeless Tobacco: Never Alcohol Use Standard Drinks/Week Comments Yes 0 (1 standard drink = 0.6 oz pur e alcohol) rarely Comments No Sex and Gender Information Value Date Recorded Sex Assigned at Not on file Legal Sex Female 6:39 AM TRUCK TECHNICIAN Gender Identity Female 07/31/2022 8:08 AM TRUCK TECHNICIAN Sexual Orientation Not on file 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 encounter Plan of Treatment Upcoming Encounters Date Type Department Care Team (Late Contact Info) Description 12/07/2024 11:00 AM CDT Clinical Support [facility] [address] [facility] 100 [place] [address] 02/03/2025 10:30 AM CDT Office Visit [facility] [address] [place] [address] [address] [place] [address] Hema Whaley MD [address] [place] [address] [address] [place] [address] 02/08/2025 12:40 PM CDT Office Visit [facility] - Endocrinology [address] [place] [address], [address] [place] [address] Lupillo Garcia, PAD MACHINE FEEDER-SHIRT SEWER [address] [place] [address], [address] [place] [address] 04/06/2025 9:20 AM TRUCK TECHNICIAN Office Visit [facility] - Internal Medicine [address] [facility] [place] [address] Narajulio césar Laura Damian, PAD MACHINE FEEDER-SHIRT SEWER [address] [place] [address] 04/06/2025 1:40 PM TRUCK TECHNICIAN Office Visit [facility] - Pulmonology [address] [facility] [address] [place] [address] Elias Harris MD [address] [facility] [address] [place] [address] 04/22/2025 11:00 AM TRUCK TECHNICIAN Office Visit [facility] - Ophthalmology 1225 [place] [phone] David Palumbo, MARCO A 1225 [place] [phone] documented as of this encounter Goals Goal [...] 10:16 AM CDT) No Rachna Amador, RN [facility] Lifestyle: Have labs drawn Lifestyle On track( 9:29 AM CDT) Chrissy Vázquez HEMOGLOBIN A1C < 8 Result Component 6.6( 4 3:41 AM CDT) No Rachna Amador, WINSOME documented as of this encounter Visit Diagnoses Not on filedocumented in this encounter Care Teams Ton Container Shipper Relationship Specialty Start Date End Date Chi Goins MD PCP - General 09/19/08 04/30/20 Chi Goins MD [address] [place] [address] PCP - Attributed-Exclusive Choice 11/15/16 06/01/19 Chi Goins MD [address] [place] [address] PCP - Attributed-[facility] EHP STL 12/01/19 11/18/22 Walter York MD [address] [place] [address] PCP - General Family Medicine 05/01/20 09/17/21 Walter York MD [address] [place] [address] PCP - General Family Medicine 09/18/21 Walter York MD [address] [place] [address] PCP - Attributed-[facility] [place] 06/02/21 09/17/22 Walter York MD [address] [place] [address] PCP - Attributed-[facility] [place]D [place] 07/31/22 03/19/24 Walter York MD [address] [place] [address] PCP - Attributed-[facility] 06/02/24 Mike Yepez MD [address] [place] [address] 216 [place] [address] Gastroenterology 01/12/10 Daniella Davis MD 01/12/10 10/04/24 Yusef Enciso MD Ophthalmology 08/10/12 10/02/24 Nikita Bailey MD [address] [place] [address] Otolaryngology 07/06/15 Elias Harris MD [address] [place] [address] 500 [place] [address] Pulmonary Disease 03/18/17 Mike Ge MD [address] [place] [address] 425 [place], [place] [address] General Surgery 03/31/17 07/18/19 Omar Painter MD [address] [place] [address] 425 [place], [place] [address] Orthopedic Surgery 12/10/18 10/02/24 Hema Whaley MD [address] [place] [address] 200 [place] [address] Cardiology 12/10/18 Gina Stacy, RN Manager Investment BankingNuclear Power Plant Engineer 05/09/23 06/17/23 Dorinda Gill MSW Outpatient Stock Cutter Care Management 09/08/23 09/25/23 Vanita Gutierrez Care Coordination Specialist Care Management 10/03/23 10/03/23 Vanita Gutierrez Care Coordination Specialist Care Management 04/07/24 04/07/24 Anne Sharma MD [address] [address] Endocrinology 10/03/24 Justo Ferrer MD 1120 [place] [address] Orthopedic Surgery 10/03/24 Ansley Luciano OD [address] [facility] [place] [address] Stacking Machine Operator Stacking Machine Operator 10/03/24 documented as of this encounter
--- OUTSIDE RECORDS SUMMARY | 2024-12-05 02:08 | XMS_ITS | Encounter Summary ---
Author Organization [facility] Address [address] [place] [address] Care Team Providers Care Marketing Systems Analyst Name Role Phone Chi Goins MD Primary Care Provider [phone] Mike Yepez MD Unavailable Daniella Davis MD Unavailable Unav ailable Rachna Amador RN Unavailable [phone] Yusef Enciso MD Unavailable Unavailable Charlotte Torres RN Unavailable [phone] Paula Montelongo RN Unavailable [phone] Nikita Bailey MD Unavailable [phone] Chi Goins MD Unavailable [phone] Elias Harris MD Unavailable [phone] Mike Ge MD Unavailable [phone] Omar Painter MD Unavailable [phone] Hema Whaley MD Unavailable [phone] Chi Goins MD Unavailable +[phone] Walter York MD Primary Care Provider [phone] Walter York MD Primary Care Provider [phone] Walter York MD Unavailable [phone] Walter York MD Unavailable [phone] Gina Stacy RN Unavailable Dorinda Gill MEDICAL FILE CLERK Unavailable [phone] Vanita Gutierrez M Unavailable +[phone] Mike Gutierrezrussel Valiente Unavailable +[phone] Walter York MD Unavailable [phone] Anne Sharma MD Unavailable [phone] Justo Ferrer MD Unavailable Mustapha Ansley M OD Unavailable [phone] Encounter Details Date Type Department Care Team (Late Contact Info) Description 04/11/2011 [facility] Outpatient Visit [facility] 1465 [place] [address] x1656 [place] [address] [place], [place] [id number] Social History Tobacco Use Types Packs/Day Years Used Date Smoking Tobacco: Every Day Cigarettes 1 34 Smokeless Tobacco: Never Alcohol Use Standard Drinks/Week Comments No 0 (1 standard drink = 0.6 oz pur e alcohol) Comments No Sex and Gender Information Value Date Recorded Sex Assigned at Not on file Legal Sex Female 6:39 AM CORPORATE ACCOUNTANT Gender Identity Female 07/31/2022 8:08 AM CORPORATE ACCOUNTANT Sexual Orientation Not on file 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 encounter Plan of Treatment Upcoming Encounters Date Type Department Care Team (Late st Contact Info) Description 12/07/2024 11:00 AM CDT Clinical Support [facility] [address] [place] [address], [address] [address] 02/03/2025 10:30 AM CDT Office Visit [facility] [address] [place] [address] [address] [place], [place] [phone] eHma Whaley MD [address] [place] [address] [place] [address] 02/08/2025 12:40 PM CDT Office Visit [facility] - Endocrinology [address] [facility], [address] [place] [address] Lupillo Garcia AUTOMATIC DISPENSER MECHANIC-STAIR BUILDER [address] [facility], [address] [place] [address] 04/06/2025 9:20 AM CORPORATE ACCOUNTANT Office Visit [facility] - Internal Medicine [address] [facility] [place] [address] Laura Mckeon, AUTOMATIC DISPENSER MECHANIC-STAIR BUILDER [address] [facility] [place] [address] 04/06/2025 1:40 PM CORPORATE ACCOUNTANT Office Visit [facility] - Pulmonology [address] [facility], [address] [place] [address] Elias Harris MD [address] [facility] [address] [place] [address] 04/22/2025 11:00 AM CORPORATE ACCOUNTANT Office Visit [facility] - Ophthalmology [address] [facility], [place] [address] David Palumbo OD [address] [place] [phone] documented as of this encounter Visit Diagnoses Not on filedocumented in this encounter Care Teams Marketing Systems Analyst Relationship Specialty Start Date End Date Chi Goins MD PCP - General 09/19/08 04/30/20 Chi Goins MD [address] [place] [address] [place] [address] PCP - Attributed-Exclusive Choice 11/15/16 06/01/19 Chi Goins MD [address] [place] [address] PCP - Attributed-[facility] EHP STL 12/01/19 11/18/22 Walter York MD [address] [place] [address] PCP - General Family Medicine 05/01/20 09/17/21 Walter York MD [address] [place] [address] PCP - General Family Medicine 09/18/21 Walter York MD [address] [place] [address] PCP - Attributed-[facility] [place] 06/02/21 09/17/22 Walter York MD [address] [facility] [place] [address] PCP - Attributed-[facility] [place] 07/31/22 03/19/24 Walter York MD [address]70 [place] [address] PCP - Attributed-[facility] [place] 06/02/24 Mike Yepze MD [address] [place] [address] Gastroenterology 01/12/10 Daniella Davis MD 01/12/10 10/04/24 Rachna Amador, RN 8670 [place] [address] Chief Airline Radio Operator 06/22/12 12/14/14 Yusef Enciso MD 8670 [place] [address] Ophthalmology 08/10/12 10/02/24 Charlotte Torres, WINSOME 1101 [facility] 300 [place] [address] Chief Airline Radio OperatorThrow Out Clerk 12/15/14 02/26/15 Paula Montelongo, RN 1011 [facility] 300 [place] [address] Chief Airline Radio OperatorThrow Out Clerk 02/27/15 06/25/15 Nikita Bailey MD [address] [place] [address] Otolaryngology 07/06/15 Elias Harris MD [address]35 [facility] [address] [place] [address] Pulmonary Disease 03/18/17 Mike Ge MD [address] [place] [address] 425 [place] [address] General Surgery 03/31/17 07/18/19 Omar Painter MD [address] [place] [address] 425 [place], [place] [phone] Orthopedic Surgery 12/10/18 10/02/24 Hema Whaley MD 1027 [facility] 200 [place] [address] Cardiology 12/10/18 Gina Stacy, RN Chief Airline Radio OperatorThrow Out Clerk 05/09/23 06/17/23 Dorinda Gill MSW Outpatient Fashion Stylist Care Management 09/08/23 09/25/23 Vanita Gutierrez Care Coordination Specialist Care Management 10/03/23 10/03/23 Vanita Gutierrez Care Coordination Specialist Care Management 04/07/24 04/07/24 Anne Sharma MD [address] [phone] Endocrinology 10/03/24 Justo Ferrer MD 1120 [place] [address] Orthopedic Surgery 10/03/24 Ansley Luciano, OD [address] [facility] [place] [address] Forensic Science Examiner Forensic Science Examiner 10/03/24 documented as of this encounter
--- OUTSIDE RECORDS SUMMARY | 2024-12-05 02:08 | XMS_ITS | Encounter Summary ---
Author Organization [facility] Address [address] [place] [address] Care Team Providers Care Fpga Engineer Name Role Phone Chi Goins MD Primary Care Provider [phone] Mike Yepez MD Unavailable Daniella Davis MD Unavailable Unav ailable Rachna Amador RN Unavailable [phone] Yusef Enciso MD Unavailable Unavailable Charlotte Torres RN Unavailable [phone] Paula Montelongo RN Unavailable [phone] Nikita Bailey MD Unavailable [phone] Chi Goins MD Unavailable [phone] Elias Harris MD Unavailable [phone] Mike Ge MD Unavailable [phone] Omar Painter MD Unavailable +[phone] Hema Whaley MD Unavailable +[phone] Chi Goins MD Unavailable +[phone] Walter York MD Primary Care Provider [phone] Walter York MD Primary Care Provider [phone] Walter York MD Unavailable [phone] Walter oYrk MD Unavailable [phone] Gina Stacy RN Unavailable Bridget Dorinda PRESCHOOL ADVISER Unavailable Vanita Gutierrez M Unavailable +[phone] Mike Gutierrezrussel Valiente Unavailable +[phone] Walter York MD Unavailable [phone] Anne Sharma MD Unavailable Justo Ferrer MD Unavailable Mustapha Ansley M OD Unavailable [phone] Encounter Details Date Type Department Care Team (Late Contact Info) Description 04/24/2011 [facility] Outpatient Visit EXTERNAL NON-[facility] DEPT Unknown, Provider Social History Tobacco Use Types Packs/Day Years Used Date Smoking Tobacco: Every Day Cigarettes 1 34 Smokeless Tobacco: Never Alcohol Use Standard Drinks/Week Comments No 0 (1 standard drink = 0.6 oz pur e alcohol) Comments No Sex and Gender Information Value Date Recorded Sex Assigned at Not on file Legal Sex Female 6:39 AM BROADCAST SUPERVISOR Gender Identity Female 07/31/2022 8:08 AM BROADCAST SUPERVISOR Sexual Orientation Not on file 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 encounter Plan of Treatment Upcoming Encounters Date Type Department Care Team (Late Contact Info) Description 12/07/2024 11:00 AM CDT Clinical Support [facility] Orthopedics [address] [place] [address] 02/03/2025 10:30 AM CDT Office Visit [facility] [facility] [address] [place] [address] Hema Whaley MD [address] [place] [address] [address] [place] [address] 02/08/2025 12:40 PM CDT Office Visit [facility] Medical Group - Endocrinology [address] [place] [address], [facility] 206 [place] [address] Lupillo Garcia, SIDE FRAMER-SINGLE SPINDLE SCREW MACHINE OPERATOR [address] [facility], [address] [place] [address] 04/06/2025 9:20 AM BROADCAST SUPERVISOR Office Visit [facility] Medical [facility] - Internal Medicine [address] [facility] [place] [address] Laura Mckeon, SIDE FRAMER-SINGLE SPINDLE SCREW MACHINE OPERATOR [address] [facility] [place] [address] 04/06/2025 1:40 PM BROADCAST SUPERVISOR Office Visit [facility] - Pulmonology [address] [facility], [address] [place] [address] Elias Harris MD 1035 [facility] [address] [place] [address] 04/22/2025 11:00 AM BROADCAST SUPERVISOR Office Visit [facility] - Ophthalmology 1225 [facility], [place] [address] David Palumbo OD [address] [place] [phone] documented as of this encounter Visit Diagnoses Not on filedocumented in this encounter Care Teams Fpga Engineer Relationship Specialty Start Date End Date Chi Goins MD PCP - General 09/19/08 04/30/20 Chi Goins MD 8670 [place] [address] PCP - Attributed-Exclusive Choice 11/15/16 06/01/19 Chi Goins MD [address]70 [place] [address] PCP - Attributed-[facility] EHP STL 12/01/19 11/18/22 Walter York MD 8670 [place] [address] PCP - General Family Medicine 05/01/20 09/17/21 Walter York MD [address]70 [place] [address] PCP - General Family Medicine 09/18/21 Walter York MD [address]70 [place] [address] PCP - Attributed-[facility] [place] 06/02/21 09/17/22 Walter York MD [address]70 [place] [address] PCP - Attributed-[facility] [place] 07/31/22 03/19/24 Walter York MD [address]70 [place] [address] PCP - Attributed-[facility] [place] 06/02/24 Mike Yepez MD [address] [place] [id number] Gastroenterology 01/12/10 Daniella Davis MD 01/12/10 10/04/24 Rachna Amador, RN [address]70 [place] [address] Confectionery Maker 06/22/12 12/14/14 Yusef Enciso MD 8670 [place] [address] Ophthalmology 08/10/12 10/02/24 Charlotte Torres, WINSOME 1101 [facility] 300 [place] [phone] Confectionery MakerAuditing Clerk 12/15/14 02/26/15 Paula Montelongo, WINSOME 1011 [facility] 300 [place] [address] Confectionery MakerAuditing Clerk 02/27/15 06/25/15 Nikita Bailey MD [facility]5 [place] [address] Otolaryngology 07/06/15 Elias Harris MD 1035 [facility] 500 [place] [address] Pulmonary Disease 03/18/17 Mike Ge MD [address] [place] [address] 425 [place] [address] General Surgery 03/31/17 07/18/19 Omar Painter MD [address] [place] [address] 425 [place] [address] Orthopedic Surgery 12/10/18 10/02/24 Hema Whaley MD 1027 [facility] 200 [place] [address] Cardiology 12/10/18 Gina Stacy RN Confectionery MakerAuditing Clerk 05/09/23 06/17/23 Dorinda Gill MSW Outpatient Warehouse Receiver Care Management 09/08/23 09/25/23 Vanita Gutierrez Care Coordination Specialist Care Management 10/03/23 10/03/23 Vanita Gutierrez Care Coordination Specialist Care Management 04/07/24 04/07/24 Anne Sharma MD [address] [phone] Endocrinology 10/03/24 Justo Ferrer MD [address] [place] [address] Orthopedic Surgery 10/03/24 Ansley Luciano, MARCO A [address] [facility] [place] [address] Internet Marketer Internet Marketer 10/03/24 documented as of this encounter
--- NOTE | 2024-12-05 02:46 | ED_ITS ---
HPI - SOB/Dyspnea General Chief Complaint: Altered Mental Status Stated Complaint: confused Time Seen by Provider: 12/05/24 01:20 History of Present Illness HPI Narrative: 69-year-old female with history of COPD, diabetes, hypertension. Patient presents to the emergency department for shortness of breath, nonproductive cough, mental status changes. Patient's family member states that she has not been acting herself today and she has been very sleepy, coughing incessantly with nonproductive coughing complaining of shortness of breath. She just got back from [place] where she was on vacation with her family members. No one around her has been sick. She endorses shortness of breath and a cough but otherwise no chest pain, nausea, vomiting, abdominal pain, back pain, fever, chills, diarrhea. No leg swelling or calf cramping. No history of DVT. Has not taken anything for symptom control prior to arrival. Is noted to be febrile in triage. Related Data Home Medications ?Medication ?Instructions ?Recorded ?Confirmed ?Last Taken ?Type albuterol sulfate 90 mcg/actuation inhalation 12/05/24 Unknown History aerosol inhaler amitriptyline 25 mg tablet mg 12/05/24 Unknown History amlodipine 5 mg tablet mg 12/05/24 Unknown History atorvastatin 40 mg tablet mg 12/05/24 Unknown History carvedilol 12.5 mg tablet mg 12/05/24 Unknown History dapagliflozin propanediol 10 mg mg 12/05/24 Unknown History tablet (Farxiga) dulaglutide 1.5 mg/0.5 mL mg subcut 12/05/24 Unknown History subcutaneous pen injector (Trulicity) gabapentin 100 mg capsule mg 12/05/24 Unknown History hydrochlorothiazide 12.5 mg capsule mg 12/05/24 Unknown History insulin glargine 100 unit/mL (3 unit subcut 12/05/24 Unknown History mL) subcutaneous pen (Lantus Solostar U-100 Insulin) umeclidinium 62.5 mcg-vilanterol inhalation 12/05/24 Unknown History 25 mcg/actuation powdr for inhalation (Anoro Ellipta) Allergies Allergy/AdvReac Type Severity Reaction Status Date / Time bupropion (From Wellbutrin) Allergy Hives Verified 09/14/22 15:33 citalopram (From Celexa) Allergy Dizziness Verified 09/14/22 15:33 venlafaxine (From Effexor) Allergy Hives Verified 09/14/22 15:33 Review of Systems 2 Review of Systems: As reviewed above in HPI Exam 2 Narrative: GENERAL: Ill-appearing, coughing frequently throughout the examination, not any acute distress HEAD: [Normocephalic, atraumatic.] EYES: [PERRLA and EOMI.] ENT: Nares clear, no rhinorrhea or epistaxis. Mucous membranes dry. NECK: Supple. CHEST: Coarse bilateral breath sounds, mild scattered asymmetric wheezing with tachypnea. No retractions or accessory muscle use. HEART: [Regular rate and rhythm]. No murmur heard. [Normal peripheral pulses.] ABDOMEN: [Soft, nondistended], [nontender], [No rigidity or guarding] EXTREMITIES: Normal range of motion. [No edema.] SKIN: Warm, dry, no rash. NEURO: [No focal deficits]. Alert and oriented [x3.] PSYCH: [Normal mood and affect.] Course Vital Signs Vital signs: Vital Signs Temperature 38.1 C H 12/05/24 00:22 Pulse Rate 93 12/05/24 00:22 Respiratory Rate 26 H 12/05/24 00:22 Blood Pressure 136/57 L 12/05/24 00:22 Pulse Oximetry 92 12/05/24 00:22 Temperature 38.1 C H 12/05/24 00:22 Pulse Rate 85 12/05/24 02:33 Respiratory Rate 25 H 12/05/24 02:33 Blood Pressure 141/70 H 12/05/24 02:33 Pulse Oximetry 97 12/05/24 02:33 Oxygen Delivery Nasal Cannula 12/05/24 01:05 Oxygen Flow Rate 2 12/05/24 01:05 MDM - SOB/Dyspnea MDM Narrative Medical decision making narrative: 69-year-old female with history of COPD, diabetes, hypertension. Patient presents to the emergency department for shortness of breath, nonproductive cough, mental status changes. Patient's family member states that she has not been acting herself today and she has been very sleepy, coughing incessantly with nonproductive coughing complaining of shortness of breath. She just got back from [place] where she was on vacation with her family members. No one around her has been sick. She endorses shortness of breath and a cough but otherwise no chest pain, nausea, vomiting, abdominal pain, back pain, fever, chills, diarrhea. No leg swelling or calf cramping. No history of DVT. Has not taken anything for symptom control prior to arrival. Is noted to be febrile in triage. Patient is tachypneic and requiring oxygen still may hercules at this time. She is currently 92-95% on 2 L nasal cannula but does not wear oxygen at home. She is febrile 38.1 with scattered asymmetric wheezes and coarse breath sounds raising suspicion for pulmonary pathology such as pneumonia bronchitis. No sick contacts but viral panel will ordered for other potential causes such as COVID or influenza. Patient states that she has been more tired recently and this is the mental status that the family was worried about that she was more sleepy last few days but is awake alert oriented and interacting appropriately. No focal neurological deficits on examination. CT of the head was ordered, chest x-ray, EKG and basic laboratory studies obtained. Viral panel did come back positive for COVID and given her level of hypoxia she was started on Decadron for symptomatic COVID and given Tylenol p.o.. Waiting results of the other tests for further evaluation and treatment plan but she will be admitted for oxygen requirements. Patient's x-ray showed no focal consolidations pleural effusions or pneumothorax. No cardiomegaly. CT of the head with no intracranial pathology. Laboratory studies show a slight leukocytosis of 11.5, normal hemoglobin, normal platelet count. Kidney function within acute kidney injury likely secondary dehydration with low sodium and chloride. She was given fluid hydration here in the maintenance infusion. Glucose mildly elevated 181. Negative troponin, mildly elevated AST but normal LFTs otherwise. Urinalysis with no infection. COVID positive, strep negative. I discussed the case with the hospitalist and we went over patient's clinical exam, fever, symptomatic COVID with hypoxia and kidney injury. She was accepted to the hospital at this time and patient and family members made aware of the plan. Medical Records Attestation: I reviewed the patient's medical records. Lab Data Attestation: I reviewed the patient's lab results. 12/05/24 00:55 12/05/24 00:55 Labs: Lab Results 12/05/24 12/05/24 12/05/24 Range/Units 00:55 00:56 01:04 WBC 11.5 H (4.5-10.0) K/mm3 RBC 4.60 (4.2-5.4) M/mm3 Hgb 12.8 (12.0-15.0) g/dL Hct 38.8 (37.0-47.0) % MCV 84.3 (80-100) fl MCH 27.8 (26-34) pg MCHC 33.0 (32-36) g/dl RDW 13.9 (11.5-14.5) % Plt Count 171 (150-375) k/mm3 MPV 10.4 (7.4-10.4) fl Immature Gran % (Auto) 0.4 (0-0.5) % Neut % (Auto) 74.3 H (45.5-73.1) % Lymph % (Auto) 16.0 L (18.3-44.2) % [place] % (Auto) 9.0 H (2.6-8.5) % Eos % (Auto) 0.0 (0-4.4) % Baso % (Auto) 0.3 (0.2-1.2) % Lymph # (Auto) 1.84 (0.9-3.2) K/mm3 [place] # (Auto) 1.0 H (0.1-0.6) K/mm3 Eos # (Auto) 0.0 (0-0.3) K/mm3 Baso # (Auto) 0.0 (0.0-0.1) K/mm3 Abs Immat Gran (auto) 0.05 H (0.00-0.031) K/mm3 Absolute Neuts (auto) 8.6 H (1.3-6.7) K/mm3 Absolute Nucleated RBC 0.000 (0.0-0.012) K/mm3 Nucleated RBC % 0.0 (0.0-0.2) % Sodium 129 L (137-145) mmol/L Potassium 4.2 (3.4-5.0) mmol/L Chloride 95 L (98-107) mmol/L Carbon Dioxide 21 L (22-30) mmol/L Anion Gap 13 H (4-12) mmol/L BUN 23 H (7-17) mg/dL Creatinine 1.29 H (0.7-1.0) mg/dL Estim Creat Clear Calc 32 ml/min Estimated GFR 41 L (59 - ) Glucose 181 H (65-110) mg/dL POC Capillary Glucose 195 H (65-105) mg/dl Calcium 9.2 (8.4-10.2) mg/dL Ferritin 262.00 (11.1-264) ng/mL Total Bilirubin 0.6 (0.2-1.3) mg/dL AST 42 H (14-36) U/L ALT 29 (6-35) U/L Alkaline Phosphatase 118 (38-126) U/L Troponin I < 0.012 (0.000-0.034) ng/mL C-Reactive Protein 4.9 H (<1.0) mg/dL Total Protein 8.4 H (6.3-8.2) g/dL Albumin 4.5 (3.5-5.1) g/dL Urine Color Yellow (Yellow) Urine Appearance Clear (Clear) Urine pH 5.0 (5.0-9.0) Ur Specific [place] 1.023 (1.001-1.035) Urine Protein 2+ H (Negative) mg/dL Urine Glucose (UA) 3+ H (Negative) mg/dL Urine Ketones Negative (Negative) mg/dL Ur Blood (Man) Negative (Negative) Urine Nitrate Negative (Negative) Urine Bilirubin Negative (Negative) Urine Urobilinogen 0.2 (<2.0) mg/dL Leukocyte Esterase Rfl Negative (Negative) SURAJ/UL Urine RBC 0-2 (0-2) /hpf Urine WBC 0-5 (0-3) /hpf Ur Squamous Epith Cells None seen (Few) /hpf Urine Bacteria None seen /hpf Urine Casts 0-2 Influenza A (RT-PCR) Negative (Negative) Influenza B (RT-PCR) Negative (Negative) RSV (RT-PCR) Negative (Negative) SARS-CoV-2 RNA (RT-PCR) Positive A (Negative) Group A Strep (PCR) (Negative) 12/05/24 Range/Units 01:36 WBC (4.5-10.0) K/mm3 RBC (4.2-5.4) M/mm3 Hgb (12.0-15.0) g/dL Hct (37.0-47.0) % MCV (80-100) fl MCH (26-34) pg MCHC (32-36) g/dl RDW (11.5-14.5) % Plt Count (150-375) k/mm3 MPV (7.4-10.4) fl Immature Gran % (Auto) (0-0.5) % Neut % (Auto) (45.5-73.1) % Lymph % (Auto) (18.3-44.2) % [place] % (Auto) (2.6-8.5) % Eos % (Auto) (0-4.4) % Baso % (Auto) (0.2-1.2) % Lymph # (Auto) (0.9-3.2) K/mm3 [place] # (Auto) (0.1-0.6) K/mm3 Eos # (Auto) (0-0.3) K/mm3 Baso # (Auto) (0.0-0.1) K/mm3 Abs Immat Gran (auto) (0.00-0.031) K/mm3 Absolute Neuts (auto) (1.3-6.7) K/mm3 Absolute Nucleated RBC (0.0-0.012) K/mm3 Nucleated RBC % (0.0-0.2) % Sodium (137-145) mmol/L Potassium (3.4-5.0) mmol/L Chloride (98-107) mmol/L Carbon Dioxide (22-30) mmol/L Anion Gap (4-12) mmol/L BUN (7-17) mg/dL Creatinine (0.7-1.0) mg/dL Estim Creat Clear Calc ml/min Estimated GFR (59 - ) Glucose (65-110) mg/dL POC Capillary Glucose (65-105) mg/dl Calcium (8.4-10.2) mg/dL Ferritin (11.1-264) ng/mL Total Bilirubin (0.2-1.3) mg/dL AST (14-36) U/L ALT (6-35) U/L Alkaline Phosphatase (38-126) U/L Troponin I (0.000-0.034) ng/mL C-Reactive Protein (<1.0) mg/dL Total Protein (6.3-8.2) g/dL Albumin (3.5-5.1) g/dL Urine Color (Yellow) Urine Appearance (Clear) Urine pH (5.0-9.0) Ur Specific [place] (1.001-1.035) Urine Protein (Negative) mg/dL Urine Glucose (UA) (Negative) mg/dL Urine Ketones (Negative) mg/dL Ur Blood (Man) (Negative) Urine Nitrate (Negative) Urine Bilirubin (Negative) Urine Urobilinogen (<2.0) mg/dL Leukocyte Esterase Rfl (Negative) SURAJ/UL Urine RBC (0-2) /hpf Urine WBC (0-3) /hpf Ur Squamous Epith Cells (Few) /hpf Urine Bacteria /hpf Urine Casts Influenza A (RT-PCR) (Negative) Influenza B (RT-PCR) (Negative) RSV (RT-PCR) (Negative) SARS-CoV-2 RNA (RT-PCR) (Negative) Group A Strep (PCR) Not detected (Negative) Imaging Data Attestation: I personally reviewed and interpreted this imaging study as follows: My impression: No acute abnormalities on the chest or CT head Critical Care Time Critical Care Time Critical Care Time: Yes Total Critical Care Time: 35 Discharge Plan Discharge Clinical Impression: Acute hypoxic respiratory failure, Delirium due to general medical condition, COVID-19 virus infection, Acute kidney injury, Acute dehydration, Fever Patient Disposition: Still a Patient Condition: Stable Time of Disposition: 04:00
[2024-12-05] MEDS: SODIUM CHLORIDE 0.9% IV 1,000 ML 999 ML IV CONT (04:06)
[2024-12-05 04:42] LABS: CRP 4.9 mg/dL (<1.0)
[2024-12-05] MEDS: LACTATED RINGERS 1,000 ML 110 ML IV CONT ×2 (04:42→17:25)
[2024-12-05] MEDS: REMDESIVIR 200 MG/NS 250 ML 200 MG/250 ML BAG 250 MG IVPB (04:42)
[2024-12-05 05:15] LABS: Ferritin 262.00 ng/mL (11.1-264)
--- NOTE | 2024-12-05 05:38 | PC.NURSE ---
patient arrived on 3medsurg at 0525
[2024-12-05 06:38] LABS: INR 1.1; Prothrombin Time 14.2 Seconds (11.1-14.7)
--- NOTE | 2024-12-05 06:58 | P.HP_ITS ---
H&P: HPI History of Present Illness Date/Time: 12/05/24 06:20 Chief Complaint: Cough, confusion Narrative: 69-year-old female with a past medical history of COPD, essential hypertension and type 2 diabetes mellitus who presented [place] the [place] the airport due to cough, confusion and lethargy. The patient's daughter who was at bedside provides the majority of history due to the patient's somnolence and confusion. The patient's daughter reports the patient is usually not confused and does not use oxygen at home. They were visiting the patient's other daughter in [place]. On December 03 the patient did not feel like herself and is I had to stay home instead of going to the festivities. Then later in the night she began having a cough. Patient usually does have some cough but not to the extent that she is currently having. Usually she is able to cough some material up but for the most part cough is been nonproductive. Then on the the patient became more lethargic. She was having intermittent episodes of confusion. Medical staff at the airport evaluated the patient and reported that her oxygen saturations were okay in her blood pressure was a little bit up. But they felt that she was stable enough to fly home. By the time they were in the area the patient had increased confusion and was restless. The daughter suspected that she may have a fever. The patient had been complaining of a sore throat starting the morning of the as well. She denied having any nausea or vomiting. She was only taking water because she felt like it is to her throat. She had no appetite for the last 24 hours. The daughter reports that the patient has not bought a pack of cigarettes in a couple of months but patient is vaping continuously. On arrival to the ER patient was hypoxic with oxygen saturations in the upper 80s. Patient had improvement in oxygen saturations to 95% on 2 L. chest x-ray was obtained and did not demonstrate any acute cardiopulmonary process. Due to her confusion did a CT was obtained to rule out intercranial process and a CT of the brain was negative. Patient was started on treatment for COVID with Decadron. She was febrile on presentation to the ER with T-max 100.5?. Patient's temperature improved after Tylenol. Patient could answer orientation questions but fell asleep multiple times during history process. Subsequently the daughter provided the majority of the history with patient's permission. The patient's daughter reports that the patient's glucoses in the ER (181 and 195) were higher than patient's baseline. She thinks that they are higher because the patient did drink a is part of a smoothie at the airport. Review of Systems 2 Review of Systems: Review of systems limited due to encephalopathy. FOR[facility]LY [facility] Past Medical History Medical History Continuous tobacco abuse Type 2 diabetes mellitus Essential hypertension COPD (chronic obstructive pulmonary disease) Surgical History Surgical History History of cervical spinal arthrodesis History of lumbar fusion History of hip surgery ORIF right hip Family History Family History Mother Diabetes mellitus Cerebrovascular accident Hypertension Mother No problems noted. Father Hypertension Social History Social History (Updated 12/05/24 @ 07:15 by Lilly Fu DO) Social History: The patient uses smoke up to 2 packs of cigarettes per day but cut back on cigarettes and is now vaping continuously. Her daughter reported that the patient last body pack of cigarettes back in September or October of 2024. Patient raised 3 children. Two of her children live locally. Code status: Full code Healthcare power of family law attorney: Aruna Houser (daughter) Smoking packs per day: 2 Smoking cigarettes per day: 40.0 Years smoked: 50 Smoking pack-years: 100.00 Smoking status: Current every day smoker Tobacco type: cigarettes and e-cigarettes/vaping Alcohol intake: current Drinks per week: 1 Substance use: never Substance use type: does not use Do You Feel Safe in your Home?: Yes Lack of Transportation: No Lack of Food: Never True Current Housing: I Have Housing Concerned About Future Housing: No Difficulty Paying Gas/Electric Bills: No Difficulty Paying for Meds: No Currently Unemployed: No Education: Bachelor's Degree Difficulty w/ Childcare or Family Care: No Spiritual care concerns: No Meds Home Medications and Allergies Home Medications ?Medication ?Instructions ?Recorded ?Confirmed ?Type albuterol sulfate 90 mcg/actuation 1 puff inhalation Q6H 12/05/24 12/05/24 History aerosol inhaler amitriptyline 25 mg tablet 25 mg PO HS 12/05/24 12/05/24 History amlodipine 5 mg tablet 5 mg PO BID 12/05/24 12/05/24 History atorvastatin 40 mg tablet 40 mg PO QPM 12/05/24 12/05/24 History carvedilol 12.5 mg tablet 12.5 mg PO BID 12/05/24 12/05/24 History dulaglutide 1.5 mg/0.5 mL 1.5 mg subcut WEEKLY 12/05/24 12/05/24 History subcutaneous pen injector (Trulicity) gabapentin 100 mg capsule 100 mg PO BID 12/05/24 12/05/24 History hydrochlorothiazide 12.5 mg capsule 12.5 mg PO DAILY 12/05/24 12/05/24 History insulin glargine 100 unit/mL (3 10 unit subcut DAILY 12/05/24 12/05/24 History mL) subcutaneous pen (Lantus Solostar U-100 Insulin) lisinopril 40 mg tablet 40 mg PO DAILY 12/05/24 12/05/24 History umeclidinium 62.5 mcg-vilanterol 1 inh inhalation DAILY 12/05/24 12/05/24 History 25 mcg/actuation powdr for inhalation (Anoro Ellipta) Allergies Allergy/AdvReac Type Severity Reaction Status Date / Time bupropion (From Wellbutrin) Allergy Hives Verified 09/14/22 15:33 citalopram (From Celexa) Allergy Dizziness Verified 09/14/22 15:33 venlafaxine (From Effexor) Allergy Hives Verified 09/14/22 15:33 Vital Signs Vital Signs - 24 hr 12/05/24 00:22 12/05/24 01:05 12/05/24 01:58 Temperature 100.5 F H Pulse Rate 93 Respiratory Rate 26 H Blood Pressure 136/57 L 130/69 Pulse Oximetry 92 95 94 Oxygen Delivery Nasal Cannula Oxygen Flow Rate 2 12/05/24 02:01 12/05/24 02:33 12/05/24 05:51 Temperature 97.7 F Pulse Rate 84 85 84 Respiratory Rate 26 H 25 H 12 Blood Pressure 138/64 141/70 H 145/63 H Pulse Oximetry 93 97 95 Oxygen Delivery Oxygen Flow Rate Exam 2 Narrative: Weight 73.7 kg BMI 26.2 Const: Other: Acutely ill-appearing, frail, elderly HENMT: Other: Mucous membranes are dry, no oral pharyngeal erythema, head is normocephalic atraumatic Eyes: Other: Pupils are equal and reactive, no scleral icterus, no conjunctival pallor Neck: Other: No JVD, no lymphadenopathy Resp: Other: Bilateral anterior wheezing, tachypnea, no accessory muscle use, decreased breath sounds at the bases posteriorly Cardio: Other: Regular rate, regular rhythm, 2+ bilateral radial pedal pulses GI: Other: Soft, nontender, nondistended, positive bowel sounds Skin: Other: No pallor, non jaundice Neuro: Other: Patient is lethargic, difficult to arouse to verbal stimuli, confused, no facial asymmetry, moves all extremities equally Extrem: Other: No clubbing, cyanosis or edema, 5/5 console attendant strength bilateral Psych: Other: Confused, cooperative, otherwise difficult to assess due to clinical condition H&P: Results Labs Labs: Laboratory Tests 12/05/24 00:55 12/05/24 00:55 12/05/24 12/05/24 12/05/24 00:55 00:56 01:04 WBC 11.5 H RBC 4.60 Hgb 12.8 Hct 38.8 MCV 84.3 MCH 27.8 MCHC 33.0 RDW 13.9 Plt Count 171 MPV 10.4 Immature Gran % (Auto) 0.4 Neut % (Auto) 74.3 H Lymph % (Auto) 16.0 L [place] % (Auto) 9.0 H Eos % (Auto) 0.0 Baso % (Auto) 0.3 Lymph # (Auto) 1.84 [place] # (Auto) 1.0 H Eos # (Auto) 0.0 Baso # (Auto) 0.0 Abs Immat Gran (auto) 0.05 H Absolute Neuts (auto) 8.6 H Absolute Nucleated RBC 0.000 Nucleated RBC % 0.0 PT INR Sodium 129 L Potassium 4.2 Chloride 95 L Carbon Dioxide 21 L Anion Gap 13 H BUN 23 H Creatinine 1.29 H Estim Creat Clear Calc 32 Estimated GFR 41 L Glucose 181 H POC Capillary Glucose 195 H Calcium 9.2 Ferritin 262.00 Total Bilirubin 0.6 AST 42 H ALT 29 Alkaline Phosphatase 118 Troponin I < 0.012 C-Reactive Protein 4.9 H Total Protein 8.4 H Albumin 4.5 Urine Color Yellow Urine Appearance Clear Urine pH 5.0 Ur Specific [place] 1.023 Urine Protein 2+ H Urine Glucose (UA) 3+ H Urine Ketones Negative Ur Blood (Man) Negative Urine Nitrate Negative Urine Bilirubin Negative Urine Urobilinogen 0.2 Leukocyte Esterase Rfl Negative Urine RBC 0-2 Urine WBC 0-5 Ur Squamous Epith Cells None seen Urine Bacteria None seen Urine Casts 0-2 Influenza A (RT-PCR) Negative Influenza B (RT-PCR) Negative RSV (RT-PCR) Negative SARS-CoV-2 RNA (RT-PCR) Positive A Group A Strep (PCR) 12/05/24 12/05/24 01:36 06:13 WBC RBC Hgb Hct MCV MCH MCHC RDW Plt Count MPV Immature Gran % (Auto) Neut % (Auto) Lymph % (Auto) [place] % (Auto) Eos % (Auto) Baso % (Auto) Lymph # (Auto) [place] # (Auto) Eos # (Auto) Baso # (Auto) Abs Immat Gran (auto) Absolute Neuts (auto) Absolute Nucleated RBC Nucleated RBC % PT 14.2 INR 1.1 Sodium Potassium Chloride Carbon Dioxide Anion Gap BUN Creatinine Estim Creat Clear Calc Estimated GFR Glucose POC Capillary Glucose Calcium Ferritin Total Bilirubin AST ALT Alkaline Phosphatase Troponin I C-Reactive Protein Total Protein Albumin Urine Color Urine Appearance Urine pH Ur Specific [place] Urine Protein Urine Glucose (UA) Urine Ketones Ur Blood (Man) Urine Nitrate Urine Bilirubin Urine Urobilinogen Leukocyte Esterase Rfl Urine RBC Urine WBC Ur Squamous Epith Cells Urine Bacteria Urine Casts Influenza A (RT-PCR) Influenza B (RT-PCR) RSV (RT-PCR) SARS-CoV-2 RNA (RT-PCR) Group A Strep (PCR) Not detected Chest x-ray personally reviewed and interpreted no acute cardiopulmonary process. Radiologic interpretation pending CT of brain demonstrated no acute intercranial process on my review. Her stat read interpretation chronic micro vascular changes noted. Assessment and Plan Assessment and plan (1) Acute hypoxic respiratory failure: Code(s): J96.01 - Acute respiratory failure with hypoxia Status: Acute (2) COPD (chronic obstructive pulmonary disease): Qualifiers: COPD type: COPD with acute lower respiratory infection Qualified Code(s): J44.0 - Chronic obstructive pulmonary disease with (acute) lower respiratory infection Code(s): J44.9 - Chronic obstructive pulmonary disease, unspecified Status: Acute (3) COVID-19 virus infection: Code(s): U07.1 - COVID-19 Status: Acute (4) Delirium due to general medical condition: Code(s): F05 - Delirium due to known physiological condition Status: Resolved (5) Acute dehydration: Code(s): E86.0 - Dehydration Status: Acute (6) Acute kidney injury: Code(s): N17.9 - Acute kidney failure, unspecified Status: Acute (7) Type 2 diabetes mellitus, with long-term current use of insulin: Qualifiers: Diabetes mellitus complication status: with hyperglycemia Qualified Code(s): E11.65 - Type 2 diabetes mellitus with hyperglycemia; Z79.4 - jail (current) use of insulin Code(s): E11.9 - Type 2 diabetes mellitus without complications; Z79.4 - keno terminal operator (current) use of insulin Status: Chronic (8) Nicotine dependence due to vaping tobacco product: Code(s): F17.290 - Nicotine dependence, other tobacco product, uncomplicated Status: Acute Plan The patient presents with acute hypoxic respiratory failure due to COPD exacerbation resulting from active COVID infection. Patient is requiring 2 L nasal cannula oxygen. Patient was started on Decadron in the ER. Will also add Remdesivir. Will check inflammatory markers including CRP and ferritin. Will wean oxygen as tolerated for goal O2 sats of 90-92%. The patient is encephalopathic and I do not feel that she could reliably cooperate with albuterol inhaler. Subsequently DuoNeb have been ordered q.6 hours. Will treat fever symptomatically with Tylenol. Patient does have hyponatremia with acute kidney injury likely due to hypovolemia. Will continue IV fluid hydration and repeat electrolyte panel in a.m.. Will monitor urine output closely. Will avoid nephrotoxic medications. The patient is mildly hyperglycemic. This is likely in part due to acute infection is likely to be exacerbated with the use of Decadron. Will place patient on moderate dose sliding scale insulin with Accu-Cheks a.c. HS. Will place patient on Lantus 15 units subQ HS. Hypoglycemia protocol has been ordered as needed. I was unable to provide meaningful tobacco cessation education to the patient given her encephalopathy. He nicotine patch has been ordered as needed for symptoms of nicotine withdrawal. The the patient and her family were unable to verify the patient's medications or dosing. Will defer management of med rec to the daytime hospitalist. Patient has been admitted as observation status. MEDICAL DECISION MAKING NARRATIVE -Spoke with the ED provider in detail regarding patient's evaluation, workup and management -Patient seen and examined at bedside -Collaborated with patient's nurse at the bedside in detail and addressed all concerns -Labs, electrolytes, radiology, investigations and test results reviewed -ED/Consult/Nursing/Ancilliary notes on the chart reviewed and appreciated -Spoke with patient/family at the bedside and answered all questions Quality VTE Prophylaxis VTE prophylaxis: pharmacologic ordered (Lovenox 30 mg subQ daily.) Hospitalist MIPS Advance Care Plan I have confirmed that the patient's Advanced Care Plan is present, code status is documented, or surrogate decision maker is listed in patient medical record.: Yes Medication Reconciliation I have utilized all available resources to obtain, update and review the patients current medications (includes all prescriptions, OTC, herbals, cannabis, and nutritional supplements).: Yes
[2024-12-05] MEDS: IPRATROPIUM 0.5 MG/ALBUTEROL SULFATE 2.5 MG AMPUL.NEB 3 ML INHALATION ×3 (09:25→20:06)
[2024-12-05] MEDS: ENOXAPARIN 30 MG/0.3 ML SYRINGE SUB-Q (10:15)
--- NOTE | 2024-12-05 12:22 | P.PNIM_ITS ---
Progress Note: A&P Assessment and Plan (1) Acute hypoxic respiratory failure: Code(s): J96.01 - Acute respiratory failure with hypoxia Status: Acute Assessment and Plan: * Stable * Continue supplemental oxygen and supportive care. * Trend vitals * Continue nebulizer treatments. (2) COVID-19 virus infection: Code(s): U07.1 - COVID-19 Status: Acute Assessment and Plan: * Continue Remdesivir and Dexamethasone. * Continue nebulizer treatments. (3) Delirium due to general medical condition: Code(s): F05 - Delirium due to known physiological condition Status: Resolved Assessment and Plan: * Pt now alert and oriented x4. (4) Acute dehydration: Code(s): E86.0 - Dehydration Status: Acute Assessment and Plan: * Continue IVF of LR at 110 ml/hr. * Trend daily labs (5) Acute kidney injury: Code(s): N17.9 - Acute kidney failure, unspecified Status: Acute Assessment and Plan: * Continue IVF of LR at 110 ml/hr. * Trend daily labs to monitor kidney function. (6) Type 2 diabetes mellitus, with long-term current use of insulin: Qualifiers: Diabetes mellitus complication status: with hyperglycemia Qualified Code(s): E11.65 - Type 2 diabetes mellitus with hyperglycemia; Z79.4 - nursing home (current) use of insulin Code(s): E11.9 - Type 2 diabetes mellitus without complications; Z79.4 - nursing home (current) use of insulin Status: Chronic Assessment and Plan: * Continue Moderate dose SSI * Continue Lantus 15 units/HS * Continue hypoglycemic protocol * continue glucose checks AC and HS. * Diabetic diet * Hold oral hypoglycemics and hold GLP-1 and SGLT if applicable. (7) Nicotine dependence due to vaping tobacco product: Code(s): F17.290 - Nicotine dependence, other tobacco product, uncomplicated Status: Acute Assessment and Plan: * Nicotine patch Time Spent With Patient Time with patient: 15 - 25 minutes Subjective Date/time seen: 12/05/24 12:22 Interval history: This pt was examined today in interval assessment since being admitted in the weather algorithm scientist hours with a positive COVID test and hypoxia. She is receiving De xamethasone and is on Remdesivir and supplemental oxygen. She has no new needs or concerns. Review of Systems Review of Systems: All systems reviewed & are unremarkable except as noted in HPI and below Exam Const: General: comfortable and no acute distress Other: lying supine in bed at this time in no acute distress. HENMT: Face/Nose/Sinus: Normal nares present Mouth: Yes moist mucous membranes Eyes: General: appearance normal, both eyes and all related structures Neck: Neck: supple and no JVD Lymphatic: lymphadenopathy not noted Resp: Effort & Inspection: normal respiratory effort Auscultation: rhonchi and diminished lung sounds Cardio: Rate: regular rate Rhythm: regular rhythm Heart sounds: no gallops, Murmur heart sound present and no rubs Other: Grade 2 holosystolic. GI: GI Palp: Yes Soft to palpation and No Tenderness to palpation present (GI) Auscultation: normal bowel sounds Skin: General skin exam: normal color, no rashes or lesions noted and no erythema Wounds: no wounds Neuro: Speech: normal speech Motor exam (neuro): 5/5 motor strength present throughout and Normal motor muscle tone present throughout Sensory Exam: normal sensation Extrem: Other: FROM of all extremities without deficit. Psych: Mental Status: mental status grossly normal Affect: normal affect Objective Data Vital Signs Vital Signs: Vital Signs - 24 hr 12/05/24 00:22 12/05/24 01:05 12/05/24 01:58 Temperature 100.5 F H Pulse Rate 93 Respiratory Rate 26 H Blood Pressure 136/57 L 130/69 Pulse Oximetry 92 95 94 Oxygen Delivery Nasal Cannula Oxygen Flow Rate 2 Fraction of Inspired Oxygen 12/05/24 02:01 12/05/24 02:33 12/05/24 05:51 Temperature 97.7 F Pulse Rate 84 85 84 Respiratory Rate 26 H 25 H 12 Blood Pressure 138/64 141/70 H 145/63 H Pulse Oximetry 93 97 95 Oxygen Delivery Oxygen Flow Rate Fraction of Inspired Oxygen 12/05/24 09:25 12/05/24 09:35 12/05/24 10:08 Temperature 97.2 F L Pulse Rate 80 76 81 Respiratory Rate 20 20 12 Blood Pressure 106/54 L Pulse Oximetry 98 Oxygen Delivery Oxygen Flow Rate Fraction of Inspired Oxygen 12/05/24 10:26 Temperature Pulse Rate 80 Respiratory Rate 20 Blood Pressure Pulse Oximetry 95 Oxygen Delivery Nasal Cannula Oxygen Flow Rate 2 Fraction of Inspired Oxygen 28 Intake/Output Intake/Output: Intake & Output 12/02/24 12/03/24 12/04/24 12/05/24 23:59 23:59 23:59 23:59 Intake Total 1000 Balance 1000 Meds/Results Medications: Active Medications Generic Name Dose Route Start Last Admin Trade Name Christin PRN Reason Stop Dose Admin Acetaminophen 650 mg 12/05/24 04:12 Acetaminophen 325 Mg Tablet PO Q4H PRN Mild Pain (1-3) or Fever Albuterol/Ipratropium 3 ml 12/05/24 08:00 12/05/24 09:25 Ipratropium 0.5 Mg/Albuterol Sulfate 2.5 Mg Ampul.Neb 3 Ml INHALATION 3 ml Q6HRT MARY Administration Dexamethasone Sodium Phosphate 6 mg 12/05/24 02:00 12/05/24 02:05 Dexamethasone Sod Phos Inj 10 Mg/Ml 1 Ml Vial IV PUSH 12/14/24 09:01 6 mg DAILY MARY Administration Dextrose 12.5 gm 12/05/24 07:05 Dextrose 50% 25 Gm/50 Ml Syringe IV PUSH PRN PRN Hypoglycemia Protocol Enoxaparin Sodium 30 mg 12/05/24 09:00 12/05/24 10:15 Enoxaparin 30 Mg/0.3 Ml Syringe SUB-Q 30 mg DAILY MARY Administration Glucagon 1 mg 12/05/24 07:05 Glucagon For Inj 1 Mg Vial IM PRN PRN Hypoglycemia Protocol Glucose 15 gm 12/05/24 07:05 Glucose Oral Gel 15 Gm Of Glucse In 37.5 Gm Tube PO PRN PRN Hypoglycemia Protocol Remdesivir 100 mg in 250 mls @ 250 mls/hr 12/06/24 10:00 IVPB 12/09/24 10:59 Q24H MARY Lactated Ringer's 1,000 mls @ 110 mls/hr 12/05/24 04:15 12/05/24 04:42 Lr - Lactated Ringers Iv IV CONT 110 mls/hr .Q9H6M MARY Administration Dextrose 1,000 mls @ 100 mls/hr 12/05/24 07:05 Dextrose 5% 1,000 Ml IVPB PRN PRN Hypoglycemia Protocol Insulin Aspart 3 - 6 units 12/05/24 08:00 12/05/24 09:56 Insulin Aspart (*Bkc) 100 Units/Ml SUB-Q Not Given TIDWM MARY Protocol Insulin Glargine 15 units 12/05/24 21:00 Insulin Glargine (*Bkc) 100 Units/Ml 0.2 units/kg (15 units) SUB-Q HS MARY Nicotine 1 patch 12/05/24 08:06 Nicotine (*Pbkc) 21 Mg Patch TRANSDERM DAILY PRN Nicotine withdrawal Ondansetron HCl 4 mg 12/05/24 04:12 Ondansetron Inj 4 Mg/2 Ml Vial IV PUSH Q4H PRN Nausea Radiology Results: ITS Impressions Head CT 12/05/24 08:24 Impression: No acute intracranial hemorrhage or suspicious mass effect. Chest X-Ray 12/05/24 08:27 IMPRESSION: Platelike atelectasis within the right mid to lower lung field, without focal infiltrate or effusion. Labs Labs: Laboratory Results - last 24 hr 12/05/24 12/05/24 12/05/24 00:55 00:56 01:04 WBC 11.5 H RBC 4.60 Hgb 12.8 Hct 38.8 MCV 84.3 MCH 27.8 MCHC 33.0 RDW 13.9 Plt Count 171 MPV 10.4 Immature Gran % (Auto) 0.4 Neut % (Auto) 74.3 H Lymph % (Auto) 16.0 L [place] % (Auto) 9.0 H Eos % (Auto) 0.0 Baso % (Auto) 0.3 Lymph # (Auto) 1.84 [place] # (Auto) 1.0 H Eos # (Auto) 0.0 Baso # (Auto) 0.0 Abs Immat Gran (auto) 0.05 H Absolute Neuts (auto) 8.6 H Absolute Nucleated RBC 0.000 Nucleated RBC % 0.0 PT INR Sodium 129 L Potassium 4.2 Chloride 95 L Carbon Dioxide 21 L Anion Gap 13 H BUN 23 H Creatinine 1.29 H Estim Creat Clear Calc 32 Estimated GFR 41 L Glucose 181 H POC Capillary Glucose 195 H Calcium 9.2 Ferritin 262.00 Total Bilirubin 0.6 AST 42 H ALT 29 Alkaline Phosphatase 118 Troponin I < 0.012 C-Reactive Protein 4.9 H Total Protein 8.4 H Albumin 4.5 Urine Color Yellow Urine Appearance Clear Urine pH 5.0 Ur Specific [place] 1.023 Urine Protein 2+ H Urine Glucose (UA) 3+ H Urine Ketones Negative Ur Blood (Man) Negative Urine Nitrate Negative Urine Bilirubin Negative Urine Urobilinogen 0.2 Leukocyte Esterase Rfl Negative Urine RBC 0-2 Urine WBC 0-5 Ur Squamous Epith Cells None seen Urine Bacteria None seen Urine Casts 0-2 Influenza A (RT-PCR) Negative Influenza B (RT-PCR) Negative RSV (RT-PCR) Negative SARS-CoV-2 RNA (RT-PCR) Positive A Group A Strep (PCR) 12/05/24 12/05/24 12/05/24 01:36 06:13 08:19 WBC RBC Hgb Hct MCV MCH MCHC RDW Plt Count MPV Immature Gran % (Auto) Neut % (Auto) Lymph % (Auto) [place] % (Auto) Eos % (Auto) Baso % (Auto) Lymph # (Auto) [place] # (Auto) Eos # (Auto) Baso # (Auto) Abs Immat Gran (auto) Absolute Neuts (auto) Absolute Nucleated RBC Nucleated RBC % PT 14.2 INR 1.1 Sodium Potassium Chloride Carbon Dioxide Anion Gap BUN Creatinine Estim Creat Clear Calc Estimated GFR Glucose POC Capillary Glucose 184 H Calcium Ferritin Total Bilirubin AST ALT Alkaline Phosphatase Troponin I C-Reactive Protein Total Protein Albumin Urine Color Urine Appearance Urine pH Ur Specific [place] Urine Protein Urine Glucose (UA) Urine Ketones Ur Blood (Man) Urine Nitrate Urine Bilirubin Urine Urobilinogen Leukocyte Esterase Rfl Urine RBC Urine WBC Ur Squamous Epith Cells Urine Bacteria Urine Casts Influenza A (RT-PCR) Influenza B (RT-PCR) RSV (RT-PCR) SARS-CoV-2 RNA (RT-PCR) Group A Strep (PCR) Not detected Quality VTE Prophylaxis VTE prophylaxis: pharmacologic ordered
[2024-12-05] MEDS: GABAPENTIN 100 MG CAPSULE PO (17:24)
[2024-12-05] MEDS: ATORVASTATIN 40 MG TABLET PO (17:24)
[2024-12-05] MEDS: INSULIN ASPART (*BKC) 100 UNITS/ML SUB-Q (17:29)
[2024-12-05] MEDS: INSULIN GLARGINE (*BKC) 100 UNITS/ML 15 UNITS SUB-Q (20:56)
[2024-12-05] MEDS: AMITRIPTYLINE HCL 25 MG TABLET PO (20:56)
[2024-12-06] VITALS (16 sets, daily range): BP systolic 122–132; BP diastolic 51–68; PULSE 57–82; RESP 16–18; TEMP 36.1–36.6; O2SAT 92–99
[2024-12-06] MEDS: IPRATROPIUM 0.5 MG/ALBUTEROL SULFATE 2.5 MG AMPUL.NEB 3 ML INHALATION ×4 (02:27→20:44)
[2024-12-06] MEDS: LACTATED RINGERS 1,000 ML 110 ML IV CONT ×2 (04:20→17:34)
[2024-12-06 04:58] LABS: Hematocrit 32.4 % (37.0-47.0); Hemoglobin 10.5 g/dL (12.0-15.0); Immature Granulocyte Percent A 0.5 % (0-0.5); Lymphocytes Absolute Auto 1.24 K/mm3 (0.9-3.2); Mean Corpuscular HGB Conc 32.4 g/dl (32-36); Mean Corpuscular Hemoglobin 27.6 pg (26-34); Mean Corpuscular Volume 85.3 fl (80-100); Nucleated Red Blood Cells Absolute Auto 0.000 K/mm3 (0.0-0.012); Nucleated Red Blood Cells Perc 0.0 % (0.0-0.2); Platelet Count Result 152 k/mm3 (150-375); Red Blood Count 3.80 M/mm3 (4.2-5.4); White Blood Count 6.6 K/mm3 (4.5-10.0)
[2024-12-06 05:13] LABS: Alanine Aminotransferase 18 U/L (6-35); Albumin Level 3.2 g/dL (3.5-5.1); Alkaline Phosphatase 86 U/L (38-126); Anion Gap 8 mmol/L (4-12); Aspartate Amino Transferase 31 U/L (14-36); Bilirubin,Total 0.4 mg/dL (0.2-1.3); Blood Urea Nitrogen 26 mg/dL (7-17); Calcium 8.6 mg/dL (8.4-10.2); Carbon Dioxide 22 mmol/L (22-30); Chloride 106 mmol/L (98-107); Estimated CRCL calculation 57 ml/min; Estimated Glomerular Filt Rate > 60; Glucose 142 mg/dL (65-110); Potassium 3.5 mmol/L (3.4-5.0); Sodium 136 mmol/L (137-145); Total Protein 6.4 g/dL (6.3-8.2)
--- NOTE | 2024-12-06 07:59 | P.PNIM_ITS ---
Progress Note: A&P Assessment and Plan (1) Acute hypoxic respiratory failure: Code(s): J96.01 - Acute respiratory failure with hypoxia Status: Acute (2) COPD (chronic obstructive pulmonary disease): Qualifiers: COPD type: COPD with acute lower respiratory infection Qualified Code(s): J44.0 - Chronic obstructive pulmonary disease with (acute) lower r espiratory infection Code(s): J44.9 - Chronic obstructive pulmonary disease, unspecified Status: Acute (3) COVID-19 virus infection: Code(s): U07.1 - COVID-19 Status: Acute (4) Delirium due to general medical condition: Code(s): F05 - Delirium due to known physiological condition Status: Resolved (5) Acute dehydration: Code(s): E86.0 - Dehydration Status: Acute (6) Acute kidney injury: Code(s): N17.9 - Acute kidney failure, unspecified Status: Acute (7) Type 2 diabetes mellitus, with long-term current use of insulin: Qualifiers: Diabetes mellitus complication status: with hyperglycemia Qualified Code(s): E11.65 - Type 2 diabetes mellitus with hyperglycemia; Z79.4 - residential (current) use of insulin Code(s): E11.9 - Type 2 diabetes mellitus without complications; Z79.4 - residential (current) use of insulin Status: Chronic (8) Nicotine dependence due to vaping tobacco product: Code(s): F17.290 - Nicotine dependence, other tobacco product, uncomplicated Status: Acute Plan Acute respiratory failure COVID 19 New oxygen requirement, 2L. Now weaned off WBC 11.5>6.6 CRP 4.9 7/6 Chest X-ray Platelike atelectasis within the right mid to lower lung field, without focal infiltrate or effusion. Personally reviewed image and opacities in the RLL noted Plan Continue decadon & remdesivir Wean O2 for sats 90-92%, still on 2L Duonebs q6. Albuterol inhaler if improved confusion Fever Tylenol prn DMII Hyperglycemia in the setting of steroids Home meds: Trulicity weekly, Lantus 15 Lantus 15, change to 10 daily Add Lispro 3 TID Altered mental status Back to baseline Hyponatremia Na 129<136 BRITTNY Creatinine 1.29 on admission, back to baseline, 0.75 overnight Follow urine output Avoid nephrotoxins Right leg pain Also has low back pain that is chronic but worse than usual to back of her leg --D-dimer, troponin, BNP, dopplers' --Possible sciatic nerve pain, add flexeril, topical lidocaine Left chest pain Musculoskeltal vs other. Differential includes pulmonary infarct, though overall low probability --Check trop, bnp, d-dimer --CT chest if d-dimer elevated --On Lovenox for DVT prophylaxis --Topical lidocaine MEDICAL DECISION MAKING NARRATIVE -Patient seen and examined at bedside -Collaborated with patient's and addressed concerns -Labs, electrolytes, radiology, investigations and test results personally reviewed -ED/Consult/Nursing/Ancilliary notes on the chart reviewed and appreciated Time Spent With Patient Time: 47 minutes Subjective Date/time seen: 12/06/24 07:59 Interval history: Admitted with a positive COVID test and hypoxia. She is receiving Dexamethasone and is on Remdesivir Weaned off oxygen New left chest pain, no change when taking a deep breath. Worse Pain radiates to the back of her leg. Also chronic low back pain Review of Systems Review of Systems: Review of systems limited due to encephalopathy. All systems reviewed & are unremarkable except as noted in HPI and below Exam Narrative: Weight 73.7 kg BMI 26.2 General - Awake and alert. No acute distress Eyes - PERRLA, EOM intact ENT - No thrush, No erythema Neck - No noticeable or palpable swelling Lymph Nodes - No lymphadenopathy Cardiovascular - RRR no m/r/g, no JVD Lungs: Clear to auscultation, No wheezing, use of accessory muscles, no crackles or wheezes. Skin - Skin warm and dry, no wounds or rashes Abdomen - Normal bowel sounds, abdomen soft and nontender Extremities - No edema, cyanosis or clubbing Musculoskeletal - 5/5 strength, normal range of motion, no swollen or erythematous joints. Pain to right leg, nontender. Neurological ? Alert and oriented x 3, CN 2-12 grossly intact. Psych: Normal mood and affect Objective Data Vital Signs Vital Signs: Vital Signs - 24 hr 12/05/24 08:00 12/05/24 09:25 12/05/24 09:35 Temperature Pulse Rate 72 80 76 Respiratory Rate 20 20 20 Blood Pressure Pulse Oximetry 95 Oxygen Delivery Nasal Cannula Oxygen Flow Rate 2 Fraction of Inspired Oxygen 12/05/24 10:08 12/05/24 10:26 12/05/24 13:56 Temperature 97.2 F L Pulse Rate 81 80 76 Respiratory Rate 12 20 20 Blood Pressure 106/54 L Pulse Oximetry 98 95 Oxygen Delivery Nasal Cannula Oxygen Flow Rate 2 Fraction of Inspired Oxygen 28 12/05/24 14:04 12/05/24 15:49 12/05/24 17:22 Temperature 97.2 F L Pulse Rate 78 77 71 Respiratory Rate 20 16 Blood Pressure 123/53 L 140/64 Pulse Oximetry 93 96 Oxygen Delivery Oxygen Flow Rate Fraction of Inspired Oxygen 12/05/24 17:24 12/05/24 20:00 12/05/24 20:06 Temperature Pulse Rate 71 82 Respiratory Rate 16 Blood Pressure Pulse Oximetry 96 Oxygen Delivery Nasal Cannula Oxygen Flow Rate 0.5 Fraction of Inspired Oxygen 12/05/24 20:10 12/05/24 20:16 12/05/24 22:00 Temperature 97.7 F Pulse Rate 82 67 Respiratory Rate 16 16 Blood Pressure 120/55 L Pulse Oximetry 97 95 Oxygen Delivery Nasal Cannula Oxygen Flow Rate 2 Fraction of Inspired Oxygen 12/06/24 02:27 12/06/24 02:37 12/06/24 06:00 Temperature 97.8 F Pulse Rate 82 82 58 L Respiratory Rate 16 16 18 Blood Pressure 130/68 Pulse Oximetry 95 Oxygen Delivery Oxygen Flow Rate Fraction of Inspired Oxygen Intake/Output Intake/Output: Intake & Output 12/03/24 12/04/24 12/05/24 12/06/24 23:59 23:59 23:59 23:59 Intake Total 2930 1500 Balance 2930 1500 Meds/Results Medications: Active Medications Generic Name Dose Route Start Last Admin Trade Name Freq PRN Reason Stop Dose Admin Acetaminophen 650 mg 12/05/24 04:12 Acetaminophen 325 Mg Tablet PO Q4H PRN Mild Pain (1-3) or Fever Albuterol/Ipratropium 3 ml 12/05/24 08:00 12/06/24 02:27 Ipratropium 0.5 Mg/Albuterol Sulfate 2.5 Mg Ampul.Neb 3 Ml INHALATION 3 ml Q6HRT MARY Administration Amitriptyline HCl 25 mg 12/05/24 21:00 12/05/24 20:56 Amitriptyline Hcl 25 Mg Tablet PO 25 mg HS MARY Administration Amlodipine Besylate 5 mg 12/05/24 17:00 12/05/24 17:24 Amlodipine Besylate 5 Mg Tablet PO 5 mg BID MARY Administration Atorvastatin Calcium 40 mg 12/05/24 18:00 12/05/24 17:24 Atorvastatin 40 Mg Tablet PO 40 mg QPM MARY Administration Carvedilol 12.5 mg 12/05/24 17:00 12/05/24 17:24 Carvedilol 12.5 Mg Tablet PO 12.5 mg BID MARY Administration Dexamethasone Sodium Phosphate 6 mg 12/05/24 02:00 12/05/24 02:05 Dexamethasone Sod Phos Inj 10 Mg/Ml 1 Ml Vial IV PUSH 12/14/24 09:01 6 mg DAILY MARY Administration Dextrose 12.5 gm 12/05/24 07:05 Dextrose 50% 25 Gm/50 Ml Syringe IV PUSH PRN PRN Hypoglycemia Protocol Enoxaparin Sodium 30 mg 12/05/24 09:00 12/05/24 10:15 Enoxaparin 30 Mg/0.3 Ml Syringe SUB-Q 30 mg DAILY MARY Administration Gabapentin 100 mg 12/05/24 17:00 12/05/24 17:24 Gabapentin 100 Mg Capsule PO 100 mg BID MARY Administration Glucagon 1 mg 12/05/24 07:05 Glucagon For Inj 1 Mg Vial IM PRN PRN Hypoglycemia Protocol Glucose 15 gm 12/05/24 07:05 Glucose Oral Gel 15 Gm Of Glucse In 37.5 Gm Tube PO PRN PRN Hypoglycemia Protocol Hydrochlorothiazide 12.5 mg 12/05/24 12:40 12/05/24 13:14 Hydrochlorothiazide 12.5 Mg Capsule PO 12.5 mg DAILY MARY Administration Remdesivir 100 mg in 250 mls @ 250 mls/hr 12/06/24 10:00 IVPB 12/09/24 10:59 Q24H MARY Lactated Ringer's 1,000 mls @ 110 mls/hr 12/05/24 04:15 12/06/24 04:20 Lr - Lactated Ringers Iv IV CONT 110 mls/hr .Q9H6M MARY Administration Dextrose 1,000 mls @ 100 mls/hr 12/05/24 07:05 Dextrose 5% 1,000 Ml IVPB PRN PRN Hypoglycemia Protocol Insulin Aspart 3 - 6 units 12/05/24 08:00 12/05/24 17:29 Insulin Aspart (*Bkc) 100 Units/Ml SUB-Q 3 units TIDWM [facility] Administration Protocol Insulin Glargine 15 units 12/05/24 21:00 12/05/24 20:56 Insulin Glargine (*Bkc) 100 Units/Ml 0.2 units/kg (15 units) 15 units SUB-Q Administration [facility] Lisinopril 40 mg 12/05/24 12:40 12/05/24 13:14 Lisinopril 20 Mg Tablet PO 40 mg DAILY [facility] Administration Nicotine 1 patch 12/05/24 08:06 Nicotine (*Pbkc) 21 Mg Patch TRANSDERM DAILY PRN Nicotine withdrawal Ondansetron HCl 4 mg 12/05/24 04:12 Ondansetron Inj 4 Mg/2 Ml Vial IV PUSH Q4H PRN Nausea Umeclidinium/Vilanterol 1 puff 12/06/24 14:00 Umeclidinium/Vilanterol 62.5-25 Mcg Ellipta INHALATION DAILYRT [facility] Radiology Results: ITS Impressions Head CT 12/05/24 08:24 Impression: No acute intracranial hemorrhage or suspicious mass effect. Chest X-Ray 12/05/24 08:27 IMPRESSION: Platelike atelectasis within the right mid to lower lung field, without focal infiltrate or effusion. Labs Labs: Laboratory Results - last 24 hr 12/05/24 12/05/24 12/05/24 08:19 12:02 17:13 WBC RBC Hgb Hct MCV MCH MCHC RDW Plt Count MPV Immature Gran % (Auto) Neut % (Auto) Lymph % (Auto) Ellis % (Auto) Eos % (Auto) Baso % (Auto) Lymph # (Auto) Ellis # (Auto) Eos # (Auto) Baso # (Auto) Abs Immat Gran (auto) Absolute Neuts (auto) Absolute Nucleated RBC Nucleated RBC % Sodium Potassium Chloride Carbon Dioxide Anion Gap BUN Creatinine Estim Creat Clear Calc Estimated GFR Glucose POC Capillary Glucose 184 H 195 H 232 H Calcium Total Bilirubin AST ALT Alkaline Phosphatase Total Protein Albumin 12/05/24 12/06/24 20:55 04:41 WBC 6.6 RBC 3.80 L Hgb 10.5 L Hct 32.4 L MCV 85.3 MCH 27.6 MCHC 32.4 RDW 13.6 Plt Count 152 MPV 11.0 H Immature Gran % (Auto) 0.5 Neut % (Auto) 72.5 Lymph % (Auto) 18.9 Ellis % (Auto) 7.9 Eos % (Auto) 0.0 Baso % (Auto) 0.2 Lymph # (Auto) 1.24 Ellis # (Auto) 0.5 Eos # (Auto) 0.0 Baso # (Auto) 0.0 Abs Immat Gran (auto) 0.03 Absolute Neuts (auto) 4.8 Absolute Nucleated RBC 0.000 Nucleated RBC % 0.0 Sodium 136 L Potassium 3.5 Chloride 106 Carbon Dioxide 22 Anion Gap 8 BUN 26 H Creatinine 0.75 Estim Creat Clear Calc 57 Estimated GFR > 60 Glucose 142 H POC Capillary Glucose 266 H Calcium 8.6 Total Bilirubin 0.4 AST 31 ALT 18 Alkaline Phosphatase 86 Total Protein 6.4 Albumin 3.2 L Quality VTE Prophylaxis VTE prophylaxis: pharmacologic ordered Hospitalist [facility] Advance Care Plan I have confirmed that the patient's Advanced Care Plan is present, code status is documented, or surrogate decision maker is listed in patient medical record.: Yes Medication Reconciliation I have utilized all available resources to obtain, update and review the patients current medications (includes all prescriptions, OTC, herbals, cannabis, and nutritional supplements).: Yes
[2024-12-06] MEDS: GABAPENTIN 100 MG CAPSULE PO ×2 (08:41→17:23)
[2024-12-06] MEDS: dexAMETHasone SOD PHOS INJ 10 MG/ML 1 ML VIAL 6 MG IV PUSH (08:42)
[2024-12-06] MEDS: ENOXAPARIN 30 MG/0.3 ML SYRINGE SUB-Q (08:42)
[2024-12-06] MEDS: INSULIN ASPART (*BKC) 100 UNITS/ML SUB-Q ×4 (08:45→17:27)
[2024-12-06 10:03] LABS: NT Pro B Type Natriuretic Pept 247 pg/mL (19.9-100); Troponin I < 0.012 ng/mL (0.000-0.034)
[2024-12-06] MEDS: LIDOCAINE 5% PATCH 1 PATCH TRANSDERM (10:09)
[2024-12-06] MEDS: REMDESIVIR 100 MG/NS 250 ML 100 MG/250 ML BAG 250 MG IVPB (10:10)
[2024-12-06] MEDS: UMECLIDINIUM/VILANTEROL 62.5-25 MCG ELLIPTA 1 PUFF INHALATION (14:10)
[2024-12-06] MEDS: ATORVASTATIN 40 MG TABLET PO (17:23)
[2024-12-06] MEDS: AMITRIPTYLINE HCL 25 MG TABLET PO (20:25)
[2024-12-07] VITALS (8 sets, daily range): BP systolic 137; BP diastolic 55; PULSE 60–66; RESP 14–16; TEMP 36.7; O2SAT 94
[2024-12-07] MEDS: IPRATROPIUM 0.5 MG/ALBUTEROL SULFATE 2.5 MG AMPUL.NEB 3 ML INHALATION ×2 (01:59→09:26)
[2024-12-07] MEDS: LACTATED RINGERS 1,000 ML 110 ML IV CONT (03:17)
[2024-12-07 05:23] LABS: INR 1.1; Prothrombin Time 13.9 Seconds (11.1-14.7)
[2024-12-07 05:34] LABS: Alanine Aminotransferase 17 U/L (6-35); Albumin Level 3.2 g/dL (3.5-5.1); Alkaline Phosphatase 86 U/L (38-126); Aspartate Amino Transferase 29 U/L (14-36); Bilirubin,Total 0.3 mg/dL (0.2-1.3); Total Protein 6.3 g/dL (6.3-8.2)
--- NOTE | 2024-12-07 07:15 | P.PNIM_ITS ---
Progress Note: A&P Assessment and Plan (1) Acute hypoxic respiratory failure: Code(s): J96.01 - Acute respiratory failure with hypoxia Status: Acute (2) COPD (chronic obstructive pulmonary disease): Qualifiers: COPD type: COPD with acute lower respiratory infection Qualified Code(s): J44.0 - Chronic obstructive pulmonary disease with (acute) lower r espiratory infection Code(s): J44.9 - Chronic obstructive pulmonary disease, unspecified Status: Acute (3) COVID-19 virus infection: Code(s): U07.1 - COVID-19 Status: Acute (4) Delirium due to general medical condition: Code(s): F05 - Delirium due to known physiological condition Status: Resolved (5) Acute dehydration: Code(s): E86.0 - Dehydration Status: Acute (6) Acute kidney injury: Code(s): N17.9 - Acute kidney failure, unspecified Status: Acute (7) Type 2 diabetes mellitus, with long-term current use of insulin: Qualifiers: Diabetes mellitus complication status: with hyperglycemia Qualified Code(s): E11.65 - Type 2 diabetes mellitus with hyperglycemia; Z79.4 - nursing home (current) use of insulin Code(s): E11.9 - Type 2 diabetes mellitus without complications; Z79.4 - nursing home (current) use of insulin Status: Chronic (8) Nicotine dependence due to vaping tobacco product: Code(s): F17.290 - Nicotine dependence, other tobacco product, uncomplicated Status: Acute Plan Acute respiratory failure COVID 19 New oxygen requirement, 2L. Now weaned off WBC 11.5>6.6 CRP 4.9 7/6 Chest X-ray Platelike atelectasis within the right mid to lower lung field, without focal infiltrate or effusion. Personally reviewed image and opacities in the RLL noted Plan Continue decadon & remdesivir Wean O2 for sats 90-92%, still on 2L Duonebs q6. Albuterol inhaler if improved confusion Fever Tylenol prn DMII Hyperglycemia in the setting of steroids Home meds: Trulicity weekly, Lantus 15 Lantus 15, change to 10 daily Add Lispro 3 TID Altered mental status Back to baseline Hyponatremia Na 129<136 BRITTNY Creatinine 1.29 on admission, back to baseline, 0.75 overnight Follow urine output Avoid nephrotoxins Right leg pain Also has low back pain that is chronic but worse than usual to back of her leg --D-dimer, troponin, BNP, dopplers' --Possible sciatic nerve pain, add flexeril, topical lidocaine Left chest pain Musculoskeltal vs other. Differential includes pulmonary infarct, though overall low probability --Check trop, bnp, d-dimer --CT chest if d-dimer elevated --On Lovenox for DVT prophylaxis --Topical lidocaine MEDICAL DECISION MAKING NARRATIVE -Patient seen and examined at bedside -Collaborated with patient's and addressed concerns -Labs, electrolytes, radiology, investigations and test results personally reviewed -ED/Consult/Nursing/Ancilliary notes on the chart reviewed and appreciated Subjective Date/time seen: 12/07/24 07:15 Interval history: Acute respiratory failure COVID 19 New oxygen requirement, 2L. Weaned off prior to discharge. WBC 11.5>6.6. CRP 4.9 7/6 Chest X-ray Platelike atelectasis within the right mid to lower lung field, without focal infiltrate or effusion. Personally reviewed image and opacities in the RLL noted Plan Continue decadon & remdesivir Wean O2 for sats 90-92%, still on 2L Duonebs q6. Albuterol inhaler if improved confusion Fever Tylenol prn DMII Hyperglycemia in the setting of steroids Home meds: Trulicity weekly, Lantus 15 Lantus 15, change to 10 daily Add Lispro 3 TID Altered mental status Back to baseline Hyponatremia Na 129<136 BRITTNY Creatinine 1.29 on admission, back to baseline, 0.75 overnight Follow urine output Avoid nephrotoxins Right leg pain Also has low back pain that is chronic but worse than usual to back of her leg. D-dimer 1. Troponin negative LE dopplers negative for DVT. Possible sciatic nerve pain, added flexeril, topical lidocaine Left chest pain Musculoskeletal chest pain. likely from cough Pain resolved with lidocaine patch. Frequent coughing Was continued on Lovenox for DVT prophylaxis --Continued topical lidocaine prn Review of Systems Review of Systems: Review of systems limited due to encephalopathy. All systems reviewed & are unremarkable except as noted in HPI and below Exam Narrative: Weight 73.7 kg BMI 26.2 General - Awake and alert. No acute distress Eyes - PERRLA, EOM intact ENT - No thrush, No erythema Neck - No noticeable or palpable swelling Lymph Nodes - No lymphadenopathy Cardiovascular - RRR no m/r/g, no JVD Lungs: Clear to auscultation, No wheezing, use of accessory muscles, no crackles or wheezes. Skin - Skin warm and dry, no wounds or rashes Abdomen - Normal bowel sounds, abdomen soft and nontender Extremities - No edema, cyanosis or clubbing Musculoskeletal - 5/5 strength, normal range of motion, no swollen or erythematous joints. Pain to right leg, nontender. Neurological ? Alert and oriented x 3, CN 2-12 grossly intact. Psych: Normal mood and affect Objective Data Vital Signs Vital Signs: Vital Signs - 24 hr 12/06/24 08:40 12/06/24 08:41 12/06/24 08:45 Temperature 97.5 F L Pulse Rate 67 67 80 Respiratory Rate 16 16 Blood Pressure 132/55 L Pulse Oximetry 99 98 Oxygen Delivery Room Air Fraction of Inspired Oxygen 21 12/06/24 09:10 12/06/24 09:10 12/06/24 09:20 Temperature Pulse Rate 78 80 Respiratory Rate 16 16 Blood Pressure Pulse Oximetry 98 Oxygen Delivery Room Air Fraction of Inspired Oxygen 21 12/06/24 14:00 12/06/24 14:05 12/06/24 14:19 Temperature 97.0 F L Pulse Rate 57 L 75 78 Respiratory Rate 16 16 16 Blood Pressure 124/51 L Pulse Oximetry 92 Oxygen Delivery Fraction of Inspired Oxygen 12/06/24 17:24 12/06/24 20:00 12/06/24 20:44 Temperature Pulse Rate 62 60 Respiratory Rate 16 Blood Pressure Pulse Oximetry Oxygen Delivery Room Air Fraction of Inspired Oxygen 12/06/24 20:45 12/06/24 20:57 12/06/24 21:56 Temperature 97.8 F Pulse Rate 60 62 62 Respiratory Rate 16 16 Blood Pressure 122/52 L Pulse Oximetry 95 97 Oxygen Delivery Room Air Fraction of Inspired Oxygen 21 12/07/24 01:59 12/07/24 02:06 12/07/24 06:51 Temperature 98.1 F Pulse Rate 65 63 60 Respiratory Rate 16 16 14 Blood Pressure 137/55 L Pulse Oximetry 94 Oxygen Delivery Fraction of Inspired Oxygen Intake/Output Intake/Output: Intake & Output 12/04/24 12/05/24 12/06/24 12/07/24 23:59 23:59 23:59 23:59 Intake Total 2930 3700 1250 Balance 2930 3700 1250 Meds/Results Medications: Active Medications Generic Name Dose Route Start Last Admin Trade Name Christin PRN Reason Stop Dose Admin Acetaminophen 650 mg 12/05/24 04:12 Acetaminophen 325 Mg Tablet PO Q4H PRN Mild Pain (1-3) or Fever Albuterol/Ipratropium 3 ml 12/05/24 08:00 12/07/24 01:59 Ipratropium 0.5 Mg/Albuterol Sulfate 2.5 Mg Ampul.Neb 3 Ml INHALATION 3 ml Q6HRT MARY Administration Amitriptyline HCl 25 mg 12/05/24 21:00 12/06/24 20:25 Amitriptyline Hcl 25 Mg Tablet PO 25 mg HS MARY Administration Amlodipine Besylate 5 mg 12/05/24 17:00 12/06/24 17:23 Amlodipine Besylate 5 Mg Tablet PO 5 mg BID MARY Administration Atorvastatin Calcium 40 mg 12/05/24 18:00 12/06/24 17:23 Atorvastatin 40 Mg Tablet PO 40 mg QPM MARY Administration Carvedilol 12.5 mg 12/05/24 17:00 12/06/24 17:24 Carvedilol 12.5 Mg Tablet PO 12.5 mg BID MARY Administration Cyclobenzaprine HCl 5 mg 12/06/24 09:21 Cyclobenzaprine Hcl 5 Mg Tablet PO Q8H PRN Muscle Spasm Dexamethasone Sodium Phosphate 6 mg 12/05/24 02:00 12/06/24 08:42 Dexamethasone Sod Phos Inj 10 Mg/Ml 1 Ml Vial IV PUSH 12/14/24 09:01 6 mg DAILY MARY Administration Dextrose 12.5 gm 12/05/24 07:05 Dextrose 50% 25 Gm/50 Ml Syringe IV PUSH PRN PRN Hypoglycemia Protocol Enoxaparin Sodium 40 mg 12/07/24 09:00 Enoxaparin 40 Mg/0.4 Ml Syringe SUB-Q DAILY MARY Gabapentin 100 mg 12/05/24 17:00 12/06/24 17:23 Gabapentin 100 Mg Capsule PO 100 mg BID MARY Administration Glucagon 1 mg 12/05/24 07:05 Glucagon For Inj 1 Mg Vial IM PRN PRN Hypoglycemia Protocol Glucose 15 gm 12/05/24 07:05 Glucose Oral Gel 15 Gm Of Glucse In 37.5 Gm Tube PO PRN PRN Hypoglycemia Protocol Hydrochlorothiazide 12.5 mg 12/05/24 12:40 12/06/24 08:42 Hydrochlorothiazide 12.5 Mg Capsule PO 12.5 mg DAILY MARY Administration Remdesivir 100 mg in 250 mls @ 250 mls/hr 12/06/24 10:00 12/06/24 10:10 IVPB 12/09/24 10:59 250 mls/hr Q24H MARY Administration Lactated Ringer's 1,000 mls @ 110 mls/hr 12/05/24 04:15 12/07/24 03:17 Lr - Lactated Ringers Iv IV CONT 110 mls/hr .Q9H6M MARY Administration Dextrose 1,000 mls @ 100 mls/hr 12/05/24 07:05 Dextrose 5% 1,000 Ml IVPB PRN PRN Hypoglycemia Protocol Insulin Aspart 3 - 6 units 12/05/24 08:00 12/06/24 17:27 Insulin Aspart (*Bkc) 100 Units/Ml SUB-Q 6 units TIDWM MARY Administration Protocol Insulin Aspart 3 units 12/06/24 08:00 12/06/24 17:26 Insulin Aspart (*Bkc) 100 Units/Ml SUB-Q 3 units TIDWM MARY Administration Insulin Glargine 10 units 12/07/24 09:00 Insulin Glargine (*Bkc) 100 Units/Ml SUB-Q QAM MARY Lidocaine 1 patch 12/06/24 09:00 12/06/24 10:09 Lidocaine 5% Patch TRANSDERM 1 patch DAILY MARY Administration Lisinopril 40 mg 12/05/24 12:40 12/06/24 08:41 Lisinopril 20 Mg Tablet PO 40 mg DAILY MARY Administration Nicotine 1 patch 12/05/24 08:06 Nicotine (*Pbkc) 21 Mg Patch TRANSDERM DAILY PRN Nicotine withdrawal Ondansetron HCl 4 mg 12/05/24 04:12 Ondansetron Inj 4 Mg/2 Ml Vial IV PUSH Q4H PRN Nausea Umeclidinium/Vilanterol 1 puff 12/06/24 14:00 12/06/24 14:10 Umeclidinium/Vilanterol 62.5-25 Mcg Ellipta INHALATION 1 puff DAILYRT MARY Administration Radiology Results: ITS Impressions Head CT 12/05/24 08:24 Impression: No acute intracranial hemorrhage or suspicious mass effect. Chest X-Ray 12/05/24 08:27 IMPRESSION: Platelike atelectasis within the right mid to lower lung field, without focal infiltrate or effusion. Venous Doppler Study 12/06/24 14:08 Impression: No evidence of deep venous thrombosis Labs Labs: Laboratory Results - last 24 hr 12/06/24 12/06/24 12/06/24 07:59 09:33 09:33 PT INR D-Dimer 1.05 H POC Capillary Glucose 131 H Total Bilirubin Direct Bilirubin AST ALT Alkaline Phosphatase Troponin I < 0.012 NT-Pro-B Natriuret Pep 247 H Cancelled Total Protein Albumin 12/06/24 12/06/24 12/06/24 11:46 16:56 21:52 PT INR D-Dimer POC Capillary Glucose 163 H 352 H 202 H Total Bilirubin Direct Bilirubin AST ALT Alkaline Phosphatase Troponin I NT-Pro-B Natriuret Pep Total Protein Albumin 12/07/24 05:02 PT 13.9 INR 1.1 D-Dimer POC Capillary Glucose Total Bilirubin 0.3 Direct Bilirubin 0.0 AST 29 ALT 17 Alkaline Phosphatase 86 Troponin I NT-Pro-B Natriuret Pep Total Protein 6.3 Albumin 3.2 L Quality VTE Prophylaxis VTE prophylaxis: pharmacologic ordered Hospitalist [facility] Advance Care Plan I have confirmed that the patient's Advanced Care Plan is present, code status is documented, or surrogate decision maker is listed in patient medical record.: Yes Medication Reconciliation I have utilized all available resources to obtain, update and review the patients current medications (includes all prescriptions, OTC, herbals, cannabis, and nutritional supplements).: Yes
[2024-12-07] MEDS: INSULIN GLARGINE (*BKC) 100 UNITS/ML 10 UNITS SUB-Q (08:23)
[2024-12-07] MEDS: INSULIN ASPART (*BKC) 100 UNITS/ML 6 UNITS SUB-Q ×2 (08:24→11:35)
[2024-12-07] MEDS: ENOXAPARIN 40 MG/0.4 ML SYRINGE SUB-Q (08:28)
[2024-12-07] MEDS: GABAPENTIN 100 MG CAPSULE PO (08:29)
[2024-12-07] MEDS: dexAMETHasone SOD PHOS INJ 10 MG/ML 1 ML VIAL 6 MG IV PUSH (08:31)
[2024-12-07] MEDS: UMECLIDINIUM/VILANTEROL 62.5-25 MCG ELLIPTA 1 PUFF INHALATION (09:26)
[2024-12-07] MEDS: REMDESIVIR 100 MG/NS 250 ML 100 MG/250 ML BAG 250 MG IVPB (09:44)
--- NOTE | 2024-12-07 10:43 | PCCDE ---
Marlen with [employer] Ariana Palacios regarding Diabetes Education consult. Ariana ordered the consult because she is adding mealtime and correction insulin to patient regimen due to hyperglycemia related to infection/steroids. Advised primary special educator not available but that nurse can review teaching with patient on how to administer fast acting insulin and how to follow correction dosing as patient already does take long acting insulin daily at home prior to admission. Spoke with WINSOME Chavez, she doesn't anticipate any issues or concerns with patient starting mealtime and correction insulin at home after discharge but will notify the provider if any concerns arise. She is also providing the patient with the Outpatient Diabetes Education brochure and recommending the patient to follow up outpatient for any additional diabetes education needs.
[2024-12-07] MEDS: INSULIN ASPART (*BKC) 100 UNITS/ML SUB-Q (11:35)
--- NOTE | 2024-12-08 11:52 | PCCDE ---
Patient called [facility] stating that her Pharmacy was not able to fill her prescription and that they needed clarification. I contacted Maki Palacios, provider who cared for Ms. Houser yesterday, infomred her of the situation and provided her with the Pharmacy phone number of [phone]. Maki stated she would call the Pharmacy. I called Ms. Houser to inform her that Maki would be calling the Pharmacy.
--- NOTE | 2024-12-20 11:32 | PCCDE ---
Addendum entered by Magdalene Watkins RD, LDN, CDE 12/20/24 11:49: ~ 11:35 am Pt returned message. [facility] Denies familiarity with mealtime dosing SMBG ~ q other day, stating seeing in the 200's. DC'd Decadron x ~ 1 wk. Reports Endo at [place] appt next week. - Educated re: timing of bolus insulin with meals when Rx'd. - Enc'd to SMBG minimum daily. - Directed to Endo office to discuss current glucose readings and medication dosing. - Discussed potential side effects steroids. Pt has number to call back prn. Original Note: 12/20: Courtesy DM educator follow up call attempted. Msg left including call back number.
--- NOTE | 2024-12-27 20:40 | P.DS_ITS ---
DS: Admitting Diagnosis Discharge Date 12/07/24 Admitting Diagnosis Acute hypoxemic respiratory failure COVID DS: Discharge Diagnosis Discharge Diagnosis (1) Type 2 diabetes mellitus, with long-term current use of insulin: Qualifiers: Diabetes mellitus complication status: with hyperglycemia Qualified Code(s): E11.65 - Type 2 diabetes mellitus with hyperglycemia; Z79.4 - detention (current) use of insulin Code(s): E11.9 - Type 2 diabetes mellitus without complications; Z79.4 - detention (current) use of insulin Status: Chronic (2) Delirium due to general medical condition: Code(s): F05 - Delirium due to known physiological condition Status: Resolved (3) COPD (chronic obstructive pulmonary disease): Qualifiers: COPD type: COPD with acute lower respiratory infection Qualified Code(s): J44.0 - Chronic obstructive pulmonary disease with (acute) lower respiratory infection Code(s): J44.9 - Chronic obstructive pulmonary disease, unspecified Status: Acute (4) Acute hypoxic respiratory failure: Code(s): J96.01 - Acute respiratory failure with hypoxia Status: Acute (5) Acute kidney injury: Code(s): N17.9 - Acute kidney failure, unspecified Status: Acute DS: Summary Hospital Course Reason for hospitalization: Copied from HPI: 69-year-old female with a past medical history of COPD, essential hypertension and type 2 diabetes mellitus who [place] due to cough, confusion and lethargy. The patient's daughter who was at bedside provides the majority of history due to the patient's somnolence and confusion. The patient's daughter reports the patient is usually not confused and does not use oxygen at home. They were visiting the patient's other daughter in [place]. On December 03 the patient did not feel like herself and is I had to stay home instead of going to the festivities. Then later in the night she began having a cough. Patient usually does have some cough but not to the extent that she is currently having. Usually she is able to cough some material up but for the most part cough is been nonproductive. Then on the the patient became more lethargic. She was having intermittent episodes of confusion. Medical staff at the airport evaluated the patient and reported that her oxygen saturations were okay in her blood pressure was a little bit up. But they felt that she was stable enough to fly home. By the time they were in the area the patient had increased confusion and was restless. The daughter suspected that she may have a fever. The patient had been complaining of a sore throat starting the morning of the as well. She denied having any nausea or vomiting. She was only taking water because she felt like it is to her throat. She had no appetite for the last 24 hours. The daughter reports that the patient has not bought a pack of cigarettes in a couple of months but patient is vaping continuously. On arrival to the ER patient was hypoxic with oxygen saturations in the upper 80s. Patient had improvement in oxygen saturations to 95% on 2 L. chest x-ray was obtained and did not demonstrate any acute cardiopulmonary process. Due to her confusion did a CT was obtained to rule out intercranial process and a CT of the brain was negative. Patient was started on treatment for COVID with Decadron. She was febrile on presentation to the ER with T-max 100.5?. Patient's temperature improved after Tylenol. Patient could answer orientation questions but fell asleep multiple times during history process. Subsequently the daughter provided the majority of the history with patient's permission. The patient's daughter reports that the patient's glucoses in the ER (181 and 195) were higher than patient's baseline. She thinks that they are higher because the patient did drink a is part of a smoothie at the airport. Hospital Course: Acute respiratory failure COVID 19 New oxygen requirement, 2L. Weaned off prior to discharge. WBC 11.5>6.6. CRP 4.9 7/6 Chest X-ray Platelike atelectasis within the right mid to lower lung field, without focal infiltrate or effusion. Personally reviewed image and opacities in the RLL noted Treated COVID with decadon & remdesivir, continued decadron for 3 days at discharge Duonebs q6. Albuterol inhaler if improved confusion Altered mental status Acute confusion, may be 2/2 hypoxia, covid. A&Ox4 at discharge Fever Resolved. Tylenol prn DMII Hyperglycemia in the setting of steroids Home meds: Trulicity weekly, Lantus 15 Lantus 15, changed to 10 daily. Discharged with a sliding scale TID with meals with dexamethasone. Can resume as able Hyponatremia Na 129<136 BRITTNY Creatinine 1.29 on admission, back to baseline, 0.75 at discharge Follow urine output Avoid nephrotoxins Right leg pain Also has low back pain that is chronic but worse than usual to back of her leg. D-dimer 1. Troponin negative LE dopplers negative for DVT. Possible sciatic nerve pain, added flexeril, topical lidocaine Left chest pain Musculoskeletal chest pain. likely from cough. Had a frequent cough Pain resolved with lidocaine patch. Was continued on Lovenox for DVT prophylaxis --Continued topical lidocaine prn Status at Discharge Cognitive/behavioral status at discharge: A&Ox4 Time Spent with Patient Time attestation: Total time spent providing and/or coordinating discharge services: 49 minutes Exam Narrative: General - Awake and alert. No acute distress Eyes - PERRLA, EOM intact ENT - No thrush, No erythema Neck - No noticeable or palpable swelling Lymph Nodes - No lymphadenopathy Cardiovascular - RRR no m/r/g, no JVD Lungs: Clear to auscultation, No wheezing, use of accessory muscles, no crackles or wheezes. Skin - Skin warm and dry, no wounds or rashes Abdomen - Normal bowel sounds, abdomen soft and nontender Extremities - No edema, cyanosis or clubbing Musculoskeletal - 5/5 strength, normal range of motion, no swollen or erythematous joints. Pain to right leg, nontender. Neurological ? Alert and oriented x 3, CN 2-12 grossly intact. Psych: Normal mood and affect Discharge Plan Discharge Attending physician on discharge: Ariana Palacios Consulting providers: Valerio Salomon; Jessica Garnett; Keaton Perry; Shwetha Fajardo; Ole Huddleston Discharging Clinician: Ariana Palacios Anticipated Discharge Date/Time: 12/07/24 13:10 Patient Disposition: Home Activity: may shower Diet: diabetic Discharge Instructions: Follow up with your PCP in 1-2 weeks. Call endocrinology if you have blood sugars over 200 frequently or ever have blood sugars less than 70 or greater than 300. Take 3 doses of dexamethasone 12/08-12/10 and use sliding scale insulin until then. Then resume prior regular medications and follow up with your PCP and endocrinology Patient Instructions: Antibiotic Form Patient Language: Italian Stand Alone Forms: General Discharge Information Follow-up/Referrals: PHYSICIAN,COMMUTATOR OPERATOR [Non-Staff] - 2 Weeks Discharge Medications: New insulin aspart (niacinamide) 100 unit/mL (3 mL) insulin pen 1 sliding scale dose subcut USEASDIRECTD Qty: 3 0RF Rx Instructions: 3 times a day before meals subq. Blood sugar <100 No insulin, 100-150 3 units, 151-200 5 units, 201-250 7 units, 251-300 9 units While on steroids. Take 12/08-12/10 and stop after last day of steroids (12/10) (DME) pen needle, diabetic [1st Tier Unifine Pentips] 32 gauge x /32 needle See Rx Instructions .Route Qty: 50 0RF Rx Instructions: As directed dexamethasone 6 mg tablet 6 mg PO DAILY Qty: 3 0RF Rx Instructions: Take 12/08-12/10, then stop Continued atorvastatin 40 mg tablet 40 mg PO QPM carvedilol 12.5 mg tablet 12.5 mg PO BID amlodipine 5 mg tablet 5 mg PO BID amitriptyline 25 mg tablet 25 mg PO HS hydrochlorothiazide 12.5 mg capsule 12.5 mg PO DAILY gabapentin 100 mg capsule 100 mg PO BID albuterol sulfate 90 mcg/actuation HFA aerosol inhaler 1 puff INHALATION Q6H insulin glargine [Lantus Solostar U-100 Insulin] 100 unit/mL (3 mL) insulin pen 10 unit SUBCUT DAILY umeclidinium-vilanterol [Anoro Ellipta] 62.5-25 mcg/actuation blister with device 1 inh INHALATION DAILY Trulicity 1.5 mg/0.5 mL pen injector 1.5 mg SUBCUT WEEKLY lisinopril 40 mg tablet 40 mg PO DAILY Date of admission: 12/05/24 07:12 Primary Care Provider: Jaylen,Walter Valiente Admitting Provider: Lilly Fu Attending physician on admission: Ariana Palacios Condition: Stable Hospitalist MIPS Heart Failure (Exclusion) Patient has history of Heart Transplant or Left Ventricular Assistive Device?: No IF YES, STOP HERE Heart Failure (Qualifier) Patient has current or prior documentation of LVEF less than or equal to 40%, or mod/servere depressed LVSF?: No IF NO, STOP HERE
== END 2024-12-07 15:00 | disposition home or self-care (01) | DRG 177 ==
LOC: ANHED 02:06 → ANH2MED 05:07
PROVIDERS: Nurse Practitioner Adult Health; Admitting Provider Internal Medicine; Emergency Provider Student in an Organized Health Care Education/Training Program; Visit Provider Nurse Practitioner Acute Care
DX: U07.1 COVID-19 (principal); J96.01 Acute respiratory failure with hypoxia; E87.1 Hypo-osmolality and hyponatremia; N17.9 Acute kidney failure, unspecified; E86.0 Dehydration; I10 Essential (primary) hypertension; J44.9 Chronic obstructive pulmonary disease, unspecified; M79.604 Pain in right leg; M54.50 Low back pain, unspecified; F17.290 Nicotine dependence, other tobacco product, uncomplicated; E11.65 Type 2 diabetes mellitus with hyperglycemia; Z79.85 Long-term (current) use of injectable non-insulin antidiabetic drugs; Z79.4 Long term (current) use of insulin; Z79.899 Other long term (current) drug therapy
CPT/HCPCS: 36415; 70450; 71045; 80053; 80076; 81001; 82728; 82948; 83880; 84484; 85025; 85380; 85610; 86140; 87637; 87651; 93005; 93970; 94640; 96361; 96365; 96375; 99291; A9270; G0378; J0248; J1100; J1650; J1815; J7030; J7120